=== PATIENT | female | born 1985 | race African-American/Black ===

== ENCOUNTER 2018-03-26 12:16 | Emergency (ER) | payer OTHER ==
[~2018-03-26] VITALS: Ht 160 cm; Wt 60.0 kg
[~2018-03-26 12:16] MED LIST: KEPRA; insulin
[2018-03-26] MEDS ORDERED: SODIUM CHLORIDE 0.9% 1,000 ML IV ONE (12:34)
[2018-03-26 12:59] LABS: BG BASE EXCESS -0.7 mmol/L (-2.0-2.0); BG CARBOXYHEMOGLOBIN 2.1 % (0.5-1.5); BG DEOXYHEMOGLOBIN 7.3 % (0.0-5.0); BG FRACTION INSPIRED OXYGEN 21; BG HCO3 ACT 23.8 mmol/L (22.0-26.0); BG OXYGEN SATURATION 92.5 % (92.0-98.5); BG OXYHEMOGLOBIN 90.6 % (94.0-97.0); BG PCO2 38.7 mmHg (35.0-45.0); BG PH 7.406 (7.350-7.450); BG PO2 65.7 mmHg (75.0-100.0); BG SAMPLE SITE RIGHT BRACHIAL; BG TOTAL HEMOGLOBIN 11.7 g/dL (12.0-18.0); BG VENT MODE ROOM AIR
[2018-03-26 13:00] LABS: HEMATOCRIT. 33.6 % (36.0-48.0); MEAN CORPUSCULAR HEMOGLOBIN 30.6 pg (28.0-32.0); MEAN CORPUSCULAR VOLUME 93.1 fL (81.0-99.0); MEAN PLATELET VOLUME 9.5 fl (7.4-10.4); PLATELET 225 x1000/uL (130-400); RED BLOOD CELL COUNT 3.61 mill/uL (4.2-5.4); RED CELL DISTRIBUTION WIDTH 14.7 % (11.6-14.6)
[2018-03-26 13:07] LABS: CHLORIDE 107 mEq/L (98-107)
[2018-03-26 13:09] LABS: PARTIAL THROMBOPLASTIN TIME 25.2 sec (23.4-31.0); PROTHROMBIN TIME 10.7 sec (9.4-11.6)
[2018-03-26 13:11] LABS: AMMONIA < 10 uMol/L (<32); HCG SCREEN NEGATIVE
[2018-03-26 13:14] LABS: ETHANOL BLOOD < 10 mg/dL
[2018-03-26 13:16] LABS: CREATINE KINASE 105 IU/L (26-192)
[2018-03-26 13:17] LABS: CARBAMAZEPINE < 0.5 ug/mL (4-12); PHENOBARBITAL < 2.1 ug/mL (15.0-40.0)
[2018-03-26 13:19] LABS: VALPROIC ACID < 3.0 ug/mL (50-100)
[2018-03-26 13:28] LABS: PLATELET ESTIMATE NORMAL
[2018-03-26 13:29] LABS: CLARITY URINE TURBID (CLEAR); COLOR URINE YELLOW (YELLOW); KETONES URINE NEGATIVE (NEGATIVE); LEUKOCYTE ESTERASE URINE NEGATIVE (NEGATIVE); NITRITE URINE NEGATIVE (NEGATIVE); OCCULT BLOOD URINE NEGATIVE (NEGATIVE); PROTEIN URINE TRACE (NEGATIVE); SPECIFIC GRAVITY URINE 1.024 (1.005-1.030); UROBILINOGEN URINE 0.2 E.U./dL (0.2-1.0)
[2018-03-26 13:41] LABS: *AMPHETAMINES SCREEN URINE NEGATIVE (NEGATIVE); *BARBITURATES SCREEN URINE NEGATIVE (NEGATIVE); *BENZODIAZEPINES SCREEN URINE NEGATIVE (NEGATIVE); *COCAINE SCREEN URINE NEGATIVE (NEGATIVE)
[2018-03-26 13:42] LABS: METHADONE URINE SCREEN NEGATIVE (NEGATIVE); OPIATES URINE SCREEN NEGATIVE (NEGATIVE); PHENCYCLIDINE URINE SCREEN NEGATIVE (NEGATIVE)
[2018-03-26 13:44] LABS: CANNABINOID URINE SCREEN PRESUMTIVE POSITIVE (NEGATIVE)
[2018-03-26] MEDS ORDERED: DEXTROSE 50% WATER 50ML SYRINGE IV ONE ×2 (13:44→13:45)
[2018-03-26 14:15] VITALS: BP 117/73
[2018-03-26] MEDS ORDERED: ACETAMINOPHEN 325MG TABLET PO ONE (14:15)
== END 2018-03-26 16:39 | disposition left against medical advice (07) ==
LOC: ER 12:29 → EDBEDREQTM 14:21 → EDBEDREQ 14:21 → ENRESERV 14:24 → CANRESERV 14:24 → ER 16:39 → CANBEDREQ 16:57
DX: E11.65 Type 2 diabetes mellitus with hyperglycemia (principal); G93.40 Encephalopathy, unspecified; E86.0 Dehydration; R56.9 Unspecified convulsions; Z79.4 Long term (current) use of insulin
CPT/HCPCS: 36415; 36600; 70450; 80053; 80156; 80165; 80184; 80185; 80305; 81003; 82140; 82375; 82550; 82805; 82962; 83690; 83880; 84484; 84703; 85025; 85610; 85730; 96361; 96374; 99291; G0482; J7030

== ENCOUNTER 2018-11-30 12:07 | Emergency (ER) | payer OTHER ==
[~2018-11-30] VITALS: Ht 162.6 cm; Wt 65.0 kg
[2018-11-30] MEDS ORDERED: SODIUM CHLORIDE 0.9% 1,000 ML IV ONE ×2 (12:45→12:47)
[2018-11-30] MEDS ORDERED: INSULIN REGULAR (HUMULIN R) UD 100 UNITS/ML SYR SUBCUT ONE (13:00)
[2018-11-30] MEDS ORDERED: LEVETIRACETAM 500MG PREMIX 100 ML IV ONE (13:00)
[2018-11-30 13:18] LABS: HEMATOCRIT. 37.5 % (36.0-48.0); HEMOGLOBIN. 11.9 g/dL (12.0-16.0); MEAN CORPUSCULAR HEMOGLOBIN 31.1 pg (28.0-32.0); MEAN CORPUSCULAR VOLUME 98.6 fL (81.0-99.0); MEAN PLATELET VOLUME 10.1 fl (7.4-10.4); PLATELET 313 x1000/uL (130-400); RED BLOOD CELL COUNT 3.81 mill/uL (4.2-5.4); RED CELL DISTRIBUTION WIDTH 14.5 % (11.6-14.6)
[2018-11-30 13:23] LABS: CHLORIDE 98 mEq/L (98-107)
[2018-11-30 13:24] LABS: INR 1.1; PROTHROMBIN TIME 10.7 sec (9.1-11.1)
[2018-11-30] MEDS ORDERED: INSULIN REGULAR (HUMULIN R) 300UNITS/3ML SUBCUT NR (13:28)
[2018-11-30 13:32] LABS: HCG SCREEN NEGATIVE
[2018-11-30 13:39] LABS: BETA HYDROXYBUTYRATE 6.6 mMol/L (0.0-0.3)
[2018-11-30 13:40] LABS: CLARITY URINE CLEAR (CLEAR); COLOR URINE YELLOW (YELLOW); KETONES URINE 4+ (NEGATIVE); LEUKOCYTE ESTERASE URINE NEGATIVE (NEGATIVE); NITRITE URINE NEGATIVE (NEGATIVE); OCCULT BLOOD URINE NEGATIVE (NEGATIVE); PROTEIN URINE NEGATIVE (NEGATIVE); SPECIFIC GRAVITY URINE 1.019 (1.005-1.030); UROBILINOGEN URINE 0.2 E.U./dL (0.2-1.0)
[2018-11-30 14:00] LABS: PLATELET ESTIMATE NORMAL
[2018-11-30] MEDS ORDERED: INSULIN REGULAR (DRIP) 100 UNITS in SODIUM CHLORIDE 0.9% 100 ML IV ONE (15:27)
[2018-11-30] MEDS ORDERED: SODIUM CHLORIDE 0.9% 1,000 ML IV STA (15:27)
[2018-11-30] MEDS ORDERED: LEVOFLOXACIN 750MG PREMIX 150 ML IV ONE (15:30)
[2018-11-30] MEDS ORDERED: INSULIN REGULAR (DRIP) 100 UNITS in SODIUM CHLORIDE 0.9% 99 ML IV PRN (15:45)
[2018-11-30] MEDS ORDERED: ALBUTEROL (0.083%) 2.5MG/3ML NEB HHN STA (15:47)
[2018-11-30] MEDS ORDERED: SODIUM BICARBONATE 8.4% 1 MEQ/ML 50ML SYR IV ONE (16:00)
[2018-11-30] MEDS ORDERED: SODIUM CHLORIDE 0.9% 1,000 ML IV SCH (16:06)
[2018-11-30] MEDS ORDERED: CLONIDINE 0.1MG TABLET PO PRN (16:15)
[2018-11-30] MEDS ORDERED: ONDANSETRON HCL 4MG/2ML INJ IV PRN (16:15)
[2018-11-30] MEDS ORDERED: KETOROLAC 15MG/ML VIAL IV PRN (16:15)
[2018-11-30] MEDS ORDERED: ACETAMINOPHEN 325MG TABLET PO PRN (16:15)
[2018-11-30] MEDS ORDERED: ZOLPIDEM TARTRATE 5MG TABLET PO PRN (16:15)
[2018-11-30] MEDS ORDERED: MAGNESIUM/ALUMINUM HYDROXIDE/SIMETHICONE 30ML UDC PO PRN (16:15)
[2018-11-30] MEDS ORDERED: GUAIFENESIN 200MG/10ML SUGAR FREE UDC PO PRN (16:15)
[2018-11-30] MEDS ORDERED: DOCUSATE SODIUM 100MG CAPSULE PO PRN (16:15)
[2018-11-30] MEDS ORDERED: LORAZEPAM 2MG/ML CPJ IV PRN (16:15)
[2018-11-30] MEDS ORDERED: IPRATROPIUM/ALBUTEROL 0.5-3(2.5)MG/3ML NEB INH PRN (16:15)
[2018-11-30] MEDS ORDERED: INSULIN REGULAR (DRIP) 100 UNITS in SODIUM CHLORIDE 0.9% 100 ML IV SCH (16:23)
[2018-11-30] MEDS: BLOOD SUGAR DIAGNOSTIC STRIP TEST SCH ×2 (16:30→18:14)
[2018-11-30] MEDS ORDERED: DEXTROSE 50% WATER 50ML SYRINGE IV PRN ×2 (16:30)
[2018-11-30 17:12] LABS: BG BASE EXCESS -15.7 mmol/L (-2.0-2.0); BG CARBOXYHEMOGLOBIN 0.4 % (0.5-1.5); BG DEOXYHEMOGLOBIN 2.7 % (0.0-5.0); BG HCO3 ACT 9.8 mmol/L (22.0-26.0); BG METHEMOGLOBIN 0.5 % (0.0-1.5); BG OXYGEN SATURATION 97.3 % (92.0-98.5); BG OXYHEMOGLOBIN 96.4 % (94.0-97.0); BG PCO2 23.1 mmHg (35.0-45.0); BG PH 7.244 (7.350-7.450); BG PO2 104.5 mmHg (75.0-100.0); BG SAMPLE SITE RIGHT BRACHIAL; BG TOTAL HEMOGLOBIN 12.2 g/dL (12.0-18.0); BG VENT MODE ROOM AIR
[2018-11-30 17:14] LABS: CHLORIDE 103 mEq/L (98-107)
[2018-11-30 17:19] LABS: PHOSPHORUS 3.7 mg/dL (2.5-4.9)
[2018-11-30 19:05] VITALS: BP 123/67
[2018-11-30 19:27] LABS: CHLORIDE 110 mEq/L (98-107)
[2018-11-30 19:33] LABS: PHOSPHORUS 2.6 mg/dL (2.5-4.9)
[2018-11-30] MEDS ORDERED: LEVETIRACETAM 500MG TABLET PO SCH (21:00)
[2018-12-01] MEDS ORDERED: PANTOPRAZOLE SODIUM 40 MG/VIAL IV SCH (09:00)
[2018-12-01 14:02] LABS: *AMPHETAMINES SCREEN URINE NEGATIVE (NEGATIVE)
[2018-12-01 14:03] LABS: *BARBITURATES SCREEN URINE NEGATIVE (NEGATIVE); *BENZODIAZEPINES SCREEN URINE NEGATIVE (NEGATIVE); *COCAINE SCREEN URINE NEGATIVE (NEGATIVE); METHADONE URINE SCREEN NEGATIVE (NEGATIVE); OPIATES URINE SCREEN NEGATIVE (NEGATIVE)
[2018-12-01 14:04] LABS: PHENCYCLIDINE URINE SCREEN NEGATIVE (NEGATIVE)
[2018-12-01 14:27] LABS: CANNABINOID URINE SCREEN PRESUMTIVE POSITIVE (NEGATIVE)
== END 2018-11-30 20:05 | disposition short-term general hospital (02) ==
LOC: ER 12:33 → EDBEDREQ 15:52 → CANBEDREQ 18:19 → ER 20:05
DX: E11.10 Type 2 diabetes mellitus with ketoacidosis without coma (principal); G40.909 Epilepsy, unspecified, not intractable, without status epilepticus; G93.49 Other encephalopathy; D72.829 Elevated white blood cell count, unspecified; E86.0 Dehydration; E87.1 Hypo-osmolality and hyponatremia; N28.9 Disorder of kidney and ureter, unspecified; Z91.14 Patient's other noncompliance with medication regimen; Z79.4 Long term (current) use of insulin
CPT/HCPCS: 36415; 36600; 71045; 80048; 80053; 80305; 81003; 81025; 82010; 82375; 82805; 82962; 83036; 83605; 83735; 84100; 84703; 85025; 85610; 87040; 87086; 93005; 96365; 96366; 96367; 96368; 96372; 96375; 99285; J1815; J1953; J1956; J2060; J3490; J7030

== ENCOUNTER 2019-09-25 11:43 | Inpatient (IN) | payer OTHER ==
[~2019-09-25] VITALS: Ht 167.6 cm; Wt 64.0 kg
[2019-09-25] MEDS ORDERED: ONDANSETRON HCL 4MG/2ML INJ IV STA (12:13)
[2019-09-25] MEDS ORDERED: SODIUM CHLORIDE 0.9% 1,000 ML IV ONE (12:13)
[2019-09-25] MEDS ORDERED: LACTATED RINGERS 1,000 ML IV STA (12:13)
[2019-09-25 12:48] LABS: PROTHROMBIN TIME 10.5 sec (9.6-11.0)
[2019-09-25 13:15] LABS: HEMATOCRIT. 36.2 % (36.0-48.0); HEMOGLOBIN. 10.9 g/dL (12.0-16.0); MEAN CORPUSCULAR HEMOGLOBIN 28.6 pg (28.0-32.0); MEAN CORPUSCULAR VOLUME 94.7 fL (81.0-99.0); MEAN PLATELET VOLUME 9.8 fl (7.4-10.4); PLATELET 268 x1000/uL (130-400); RED BLOOD CELL COUNT 3.82 mill/uL (4.2-5.4); RED CELL DISTRIBUTION WIDTH 16.5 % (11.6-14.6)
[2019-09-25 13:17] LABS: CHLORIDE 97 mEq/L (98-107)
[2019-09-25 13:26] LABS: HCG SCREEN NEGATIVE
[2019-09-25 13:31] LABS: BETA HYDROXYBUTYRATE 8.9 mMol/L (0.0-0.3)
[2019-09-25 13:56] LABS: PLATELET ESTIMATE NORMAL
[2019-09-25] MEDS ORDERED: INSULIN REGULAR (DRIP) 100 UNITS in SODIUM CHLORIDE 0.9% 99 ML IV ONE (14:26)
[2019-09-25 15:17] LABS: CLARITY URINE CLEAR (CLEAR); COLOR URINE YELLOW (YELLOW); KETONES URINE 4+ (NEGATIVE); LEUKOCYTE ESTERASE URINE NEGATIVE (NEGATIVE); NITRITE URINE NEGATIVE (NEGATIVE); OCCULT BLOOD URINE 3+ (NEGATIVE); PROTEIN URINE TRACE (NEGATIVE); SPECIFIC GRAVITY URINE 1.018 (1.005-1.030); UROBILINOGEN URINE 0.2 E.U./dL (0.2-1.0)
[2019-09-25] MEDS: SODIUM CHLORIDE 0.9% 1,000 ML IV SCH (15:48)
[2019-09-25] MEDS: PANTOPRAZOLE SODIUM 40 MG/VIAL IV SCH (15:59)
[2019-09-25 17:15] LABS: CHLORIDE 101 mEq/L (98-107)
[2019-09-25 17:20] LABS: PHOSPHORUS 4.6 mg/dL (2.5-4.9)
[2019-09-25] MEDS ORDERED: MORPHINE SULFATE 2 MG/ML CPJ (NOT FOR IM USE) IV NR (17:30)
[2019-09-25] MEDS: KETOROLAC 30MG/ML VIAL IV PRN (20:47)
[2019-09-25 21:12] LABS: CHLORIDE 111 mEq/L (98-107)
[2019-09-25] MEDS: ACETAMINOPHEN 325MG TABLET PO PRN (21:18)
[2019-09-26] VITALS (30 sets, daily range): BP systolic 102–129; BP diastolic 66–87
[2019-09-26 01:24] LABS: CHLORIDE 116 mEq/L (98-107)
[2019-09-26] MEDS: SODIUM CHLORIDE 0.9% 1,000 ML IV SCH (01:36)
[2019-09-26 04:09] LABS: HEMATOCRIT. 29.9 % (36.0-48.0); HEMOGLOBIN. 9.3 g/dL (12.0-16.0); MEAN CORPUSCULAR HEMOGLOBIN 28.8 pg (28.0-32.0); MEAN CORPUSCULAR VOLUME 92.1 fL (81.0-99.0); MEAN PLATELET VOLUME 9.4 fl (7.4-10.4); PLATELET 248 x1000/uL (130-400); RED BLOOD CELL COUNT 3.24 mill/uL (4.2-5.4); RED CELL DISTRIBUTION WIDTH 15.6 % (11.6-14.6)
[2019-09-26 04:15] LABS: CHLORIDE 113 mEq/L (98-107)
[2019-09-26 04:21] LABS: PHOSPHORUS 2.6 mg/dL (2.5-4.9)
[2019-09-26 05:43] LABS: BG BASE EXCESS -18.6 mmol/L (-2.0-2.0); BG CARBOXYHEMOGLOBIN 0.3 % (0.5-1.5); BG DEOXYHEMOGLOBIN 1.8 % (0.0-5.0); BG FRACTION INSPIRED OXYGEN 21; BG HCO3 ACT 8.3 mmol/L (22.0-26.0); BG METHEMOGLOBIN 0.2 % (0.0-1.5); BG OXYGEN SATURATION 98.2 % (92.0-98.5); BG OXYHEMOGLOBIN 97.7 % (94.0-97.0); BG PCO2 23.4 mmHg (35.0-45.0); BG PH 7.166 (7.350-7.450); BG PO2 131.1 mmHg (75.0-100.0); BG SAMPLE SITE RIGHT BRACHIAL; BG TOTAL HEMOGLOBIN 10.5 g/dL (12.0-18.0); BG VENT MODE ROOM AIR
[2019-09-26 07:00] LABS: PLATELET ESTIMATE NORMAL
[2019-09-26] MEDS: PANTOPRAZOLE SODIUM 40 MG/VIAL IV SCH (09:00)
[2019-09-26 11:15] LABS: CHLORIDE 113 mEq/L (98-107)
[2019-09-26] MEDS ORDERED: HYDROCODONE/ACETAMINOPHEN 5/325MG TABLET PO PRN (11:15)
[2019-09-26] MEDS ORDERED: DEXTROSE 50% WATER 50ML SYRINGE IV ONE (12:54)
[2019-09-26] MEDS ORDERED: INSULIN REGULAR (DRIP) 100 UNITS in SODIUM CHLORIDE 0.9% 99 ML IV ONE ×2 (15:15→15:45)
[2019-09-26 15:31] LABS: HEMATOCRIT. 35.6 % (36.0-48.0); HEMOGLOBIN. 11.2 g/dL (12.0-16.0); MEAN CORPUSCULAR HEMOGLOBIN 28.9 pg (28.0-32.0); MEAN CORPUSCULAR VOLUME 91.7 fL (81.0-99.0); MEAN PLATELET VOLUME 9.7 fl (7.4-10.4); PLATELET 162 x1000/uL (130-400); RED BLOOD CELL COUNT 3.88 mill/uL (4.2-5.4); RED CELL DISTRIBUTION WIDTH 16.1 % (11.6-14.6)
[2019-09-26 15:34] LABS: CHLORIDE 114 mEq/L (98-107)
[2019-09-26 15:41] LABS: BG BASE EXCESS -15.9 mmol/L (-2.0-2.0); BG CARBOXYHEMOGLOBIN 0.3 % (0.5-1.5); BG DEOXYHEMOGLOBIN 2.3 % (0.0-5.0); BG FRACTION INSPIRED OXYGEN 21; BG HCO3 ACT 9.7 mmol/L (22.0-26.0); BG METHEMOGLOBIN 0.3 % (0.0-1.5); BG OXYGEN SATURATION 97.7 % (92.0-98.5); BG OXYHEMOGLOBIN 97.1 % (94.0-97.0); BG PCO2 23.1 mmHg (35.0-45.0); BG PH 7.241 (7.350-7.450); BG PO2 107.5 mmHg (75.0-100.0); BG SAMPLE SITE RIGHT BRACHIAL; BG TOTAL HEMOGLOBIN 10.8 g/dL (12.0-18.0); BG VENT MODE ROOM AIR
[2019-09-26 16:13] LABS: CHLORIDE 113 mEq/L (98-107)
[2019-09-26] MEDS ORDERED: KEPP250 MT (16:50)
[2019-09-26] MEDS ORDERED: INSU100I28 SQ (16:50)
[2019-09-26] MEDS ORDERED: INSULIN REGULAR (DRIP) 100 UNITS in SODIUM CHLORIDE 0.9% 99 ML IV SCH (16:54)
[2019-09-26] MEDS ORDERED: DEXTROSE 50% WATER 50ML SYRINGE IV PRN ×2 (17:00)
[2019-09-26] MEDS: BLOOD SUGAR DIAGNOSTIC STRIP TEST SCH ×8 (17:47→23:46)
[2019-09-26] MEDS: PIPERACILLIN/TAZOBACTAM 3.375 G in DEXT 5% WATER 100 ML IV SCH ×2 (17:51→23:46)
[2019-09-26] MEDS: DEXT 5%/0.45% NACL 1000ML 1,000 ML IV SCH (17:56)
[2019-09-26] MEDS ORDERED: MAGNESIUM 2 G PREMIX 50 ML IV SCH (18:00)
[2019-09-26] MEDS ORDERED: VANCOMYCIN 1250MG in DEXTROSE 5% WATER 250ML IV SCH (20:00)
[2019-09-26] MEDS: LEVETIRACETAM 500MG/5ML CUP PO SCH (20:42)
[2019-09-26 20:50] LABS: ATYPICAL LYMPHOCYTES 1; PLATELET ESTIMATE NORMAL
[2019-09-26 22:08] LABS: CHLORIDE 110 mEq/L (98-107)
[2019-09-26 22:18] LABS: PHOSPHORUS 0.4 mg/dL (2.5-4.9)
[2019-09-26] MEDS ORDERED: POTASSIUM PHOS,M-BASIC-D-BASIC 20 MMOL in DEXT 5% WATER 243.3333 ML IV SCH (23:30)
[2019-09-26] MEDS ORDERED: KCL 20MEQ/100ML PREMIX 100 ML IV SCH (23:30)
[2019-09-27] VITALS (26 sets, daily range): BP systolic 97–127; BP diastolic 58–84
[2019-09-27] MEDS: KETOROLAC 30MG/ML VIAL IV PRN ×2 (00:21→23:14)
[2019-09-27] MEDS: BLOOD SUGAR DIAGNOSTIC STRIP TEST SCH ×15 (01:08→23:00)
[2019-09-27] MEDS ORDERED: DEXTROSE 50% WATER 50ML SYRINGE IV PRN ×3 (01:15→11:30)
[2019-09-27] MEDS ORDERED: KCL 20MEQ/100ML PREMIX 100 ML IV SCH (01:30)
[2019-09-27] MEDS ORDERED: INSULIN GLARGINE UD 100 UNITS/ML SYR SUBCUT SCH ×2 (02:00→22:00)
[2019-09-27] MEDS: DEXT 5%/0.45% NACL 1000ML 1,000 ML IV SCH ×4 (02:06→17:23)
[2019-09-27] MEDS: VANCOMYCIN 1 G PREMIX 200 ML IV SCH ×3 (04:37→20:58)
[2019-09-27 04:46] LABS: BASOPHILS % 0.2 % (0.0-2.0); HEMATOCRIT. 29.6 % (36.0-48.0); HEMOGLOBIN. 9.7 g/dL (12.0-16.0); MEAN CORPUSCULAR HEMOGLOBIN 29.2 pg (28.0-32.0); MEAN CORPUSCULAR VOLUME 89.4 fL (81.0-99.0); MEAN PLATELET VOLUME 9.9 fl (7.4-10.4); MONOCYTES % 5.4 % (2.0-8.0); NEUTROPHILS % 83.4 % (40.0-76.0); PLATELET 189 x1000/uL (130-400); RED BLOOD CELL COUNT 3.32 mill/uL (4.2-5.4); RED CELL DISTRIBUTION WIDTH 15.8 % (11.6-14.6)
[2019-09-27 04:52] LABS: CHLORIDE 107 mEq/L (98-107)
[2019-09-27 04:59] LABS: PHOSPHORUS 1.9 mg/dL (2.5-4.9)
[2019-09-27] MEDS: PIPERACILLIN/TAZOBACTAM 3.375 G in DEXT 5% WATER 100 ML IV SCH ×4 (06:09→23:15)
[2019-09-27] MEDS ORDERED: INSULIN LISPRO 100 UNITS/ML SUBCUT SCH ×2 (08:00→08:20)
[2019-09-27] MEDS: PANTOPRAZOLE SODIUM 40 MG/VIAL IV SCH (08:26)
[2019-09-27] MEDS: LEVETIRACETAM 500MG/5ML CUP PO SCH ×2 (08:26→20:59)
[2019-09-27] MEDS ORDERED: POTASSIUM PHOS,M-BASIC-D-BASIC 20 MMOL in DEXT 5% WATER 243.3333 ML IV SCH (10:00)
[2019-09-27] MEDS ORDERED: MAGNESIUM 2 G PREMIX 50 ML IV SCH (10:00)
[2019-09-27] MEDS ORDERED: INSULIN REGULAR (DRIP) 100 UNITS in SODIUM CHLORIDE 0.9% 100 ML IV SCH ×2 (11:19→13:00)
[2019-09-27] MEDS ORDERED: BLOOD SUGAR DIAGNOSTIC STRIP TEST SCH (11:30)
[2019-09-27 20:27] LABS: CHLORIDE 110 mEq/L (98-107)
[2019-09-27 20:32] LABS: PHOSPHORUS 1.2 mg/dL (2.5-4.9)
[2019-09-27] MEDS: OSELTAMIVIR 75MG CAPSULE PO SCH (20:59)
[2019-09-27 23:44] LABS: CHLORIDE 108 mEq/L (98-107)
[2019-09-27] MEDS: ACETAMINOPHEN 325MG TABLET PO PRN (23:53)
[2019-09-28] VITALS (17 sets, daily range): BP systolic 99–132; BP diastolic 58–97
[2019-09-28] MEDS: KETOROLAC 30MG/ML VIAL IV PRN ×3 (00:31→00:35)
[2019-09-28] MEDS: BLOOD SUGAR DIAGNOSTIC STRIP TEST SCH ×5 (01:00→08:42)
[2019-09-28] MEDS ORDERED: POTASSIUM PHOS,M-BASIC-D-BASIC 20 MMOL in DEXT 5% WATER 243.3333 ML IV SCH (01:00)
[2019-09-28] MEDS ORDERED: DEXTROSE 50% WATER 50ML SYRINGE IV PRN ×2 (02:00→08:30)
[2019-09-28] MEDS: ACETAMINOPHEN 325MG TABLET PO PRN ×4 (02:13→02:21)
[2019-09-28] MEDS: DEXT 5%/0.45% NACL 1000ML 1,000 ML IV SCH (03:15)
[2019-09-28] MEDS: INSULIN LISPRO 100 UNITS/ML SUBCUT SCH ×3 (04:00→12:40)
[2019-09-28] MEDS: VANCOMYCIN 1 G PREMIX 200 ML IV SCH (04:56)
[2019-09-28 06:03] LABS: BASOPHILS % 0.3 % (0.0-2.0); EOSINOPHILS % 0.4 % (0.0-5.0); HEMATOCRIT. 29.1 % (36.0-48.0); HEMOGLOBIN. 9.6 g/dL (12.0-16.0); LYMPHOCYTES % 24.4 % (20.0-50.0); MEAN CORPUSCULAR VOLUME 88.2 fL (81.0-99.0); MONOCYTES % 8.9 % (2.0-8.0); PLATELET 189 x1000/uL (130-400); RED CELL DISTRIBUTION WIDTH 15.3 % (11.6-14.6)
[2019-09-28] MEDS: PIPERACILLIN/TAZOBACTAM 3.375 G in DEXT 5% WATER 100 ML IV SCH ×2 (06:24→12:25)
[2019-09-28] MEDS: ONDANSETRON HCL 4MG/2ML INJ IV PRN ×2 (07:14→12:43)
[2019-09-28] MEDS ORDERED: POTASSIUM CHLORIDE 20MEQ TABLET SR PO SCH ×2 (08:30→15:30)
[2019-09-28] MEDS: PANTOPRAZOLE SODIUM 40 MG/VIAL IV SCH (09:05)
[2019-09-28] MEDS: LEVETIRACETAM 500MG/5ML CUP PO SCH (09:05)
[2019-09-28] MEDS: OSELTAMIVIR 75MG CAPSULE PO SCH (09:05)
[2019-09-28] MEDS ORDERED: POTASSIUM CHLORIDE INJ 40 MEQ in DEXT 5% WATER 250 ML IV SCH (10:00)
[2019-09-28] MEDS ORDERED: INSULIN GLARGINE UD 100 UNITS/ML SYR SUBCUT SCH (10:00)
[2019-09-28] MEDS ORDERED: BLOOD SUGAR DIAGNOSTIC STRIP TEST SCH (12:50)
[2019-09-28] MEDS ORDERED: INSULIN LISPRO 100 UNITS/ML SUBCUT SCH (13:20)
[2019-09-28 15:22] LABS: CHLORIDE 108 mEq/L (98-107)
[2019-09-28] MEDS ORDERED: VANCOMYCIN 1 G PREMIX 200 ML IV SCH (20:00)
[2019-09-29] MEDS ORDERED: INSULIN GLARGINE UD 100 UNITS/ML SYR SUBCUT SCH (10:00)
== END 2019-09-28 16:45 | disposition home or self-care (01) | DRG 871 ==
LOC: ER 11:43 → EDBEDREQ 15:16 → EDBEDREQTM 15:16 → ENRESERV 09-26 14:07 → CANRESERV 09-26 14:07 → EDBEDREQSVC 09-26 14:58 → EDBEDREQ 09-26 14:58 → EDBEDREQSVC 09-26 15:49 → ENRESERV 09-26 15:56 → CVICU 09-26 16:43 → CMPBEDREQ 09-27 02:47
PROVIDERS: ADMIT Internal Medicine Nephrology; ATTEND Internal Medicine Nephrology
DX: A41.9 Sepsis, unspecified organism (principal); E11.10 Type 2 diabetes mellitus with ketoacidosis without coma; E87.1 Hypo-osmolality and hyponatremia; E87.5 Hyperkalemia; E87.8 Other disorders of electrolyte and fluid balance, not elsewhere classified; D64.9 Anemia, unspecified; G40.909 Epilepsy, unspecified, not intractable, without status epilepticus; F12.90 Cannabis use, unspecified, uncomplicated; J11.1 Influenza due to unidentified influenza virus with other respiratory manifestations; Z79.4 Long term (current) use of insulin; Z79.899 Other long term (current) drug therapy
CPT/HCPCS: 36415; 36600; 71045; 80048; 80053; 80202; 81003; 82010; 82375; 82805; 82962; 83605; 83735; 84100; 84145; 84703; 85025; 87804; 99291; C9113; J1815; J1885; J2270; J2405; J2543; J3370; J3475; J3480; J3490; J7030; J7040; J7050; J7060; J7120

== ENCOUNTER 2020-06-14 16:29 | Inpatient (IN) | payer OTHER ==
[~2020-06-14] VITALS: Ht 162.6 cm; Wt 60.8 kg
[2020-06-14] VITALS (18 sets, daily range): BP systolic 89–143; BP diastolic 48–78
[~2020-06-14 16:29] MED LIST changes: +INSU100I28 SQ; +KEPP250 MT; -KEPRA; -insulin
[2020-06-14] MEDS ORDERED: ETOMIDATE 2MG/ML 10ML VIAL IV ONE ×2 (17:00→17:15)
[2020-06-14] MEDS ORDERED: VECURONIUM BROMIDE 10 MG/VIAL IV ONE (17:00)
[2020-06-14] MEDS ORDERED: SODIUM BICARBONATE 8.4% 1 MEQ/ML 50ML SYR IV ONE ×4 (17:00→20:00)
[2020-06-14] MEDS ORDERED: SODIUM CHLORIDE 0.9% 10ML VIAL ONE (17:00)
[2020-06-14] MEDS ORDERED: SODIUM CHLORIDE 0.9% 1000ML BAG (SEPSIS BOLUS) IV ONE (17:00)
[2020-06-14] MEDS ORDERED: SODIUM BICARBONATE 8.4% MEQ/ML 50ML VIAL IV ONE (17:04)
[2020-06-14] MEDS ORDERED: PROPOFOL 10MG/ML 100ML 100 ML IV SCH (17:15)
[2020-06-14] MEDS ORDERED: LORAZEPAM 2MG/ML CPJ IV ONE (17:15)
[2020-06-14 17:20] LABS: CHLORIDE 92 mEq/L (98-107); HEMATOCRIT. 33.4 % (36.0-48.0); MEAN CORPUSCULAR HEMOGLOBIN 29.8 pg (28.0-32.0); MEAN CORPUSCULAR VOLUME 111.2 fL (81.0-99.0); MEAN PLATELET VOLUME 10.9 fl (7.4-10.4); PLATELET 185 x1000/uL (130-400); RED CELL DISTRIBUTION WIDTH 15.2 % (11.6-14.6)
[2020-06-14 17:22] LABS: PARTIAL THROMBOPLASTIN TIME 36.2 sec (23.4-31.0); PROTHROMBIN TIME 10.9 sec (9.6-11.0)
[2020-06-14 17:25] LABS: ETHANOL BLOOD < 10 mg/dL
[2020-06-14] MEDS ORDERED: CALCIUM CHLORIDE 1,000 MG in DEXT 5% WATER 90 ML IV ONE (17:30)
[2020-06-14 17:44] LABS: HCG SCREEN NEGATIVE
[2020-06-14] MEDS ORDERED: INSULIN REGULAR (DRIP) 100 UNITS in SODIUM CHLORIDE 0.9% 100 ML IV ONE (17:46)
[2020-06-14] MEDS ORDERED: SODIUM CHLORIDE 0.9% 1,000 ML IV STA (17:46)
[2020-06-14] MEDS ORDERED: CALCIUM CHLORIDE 1GM/10ML SYR IV ONE (17:53)
[2020-06-14 17:54] LABS: PLATELET ESTIMATE NORMAL
[2020-06-14] MEDS ORDERED: VANCOMYCIN 1 G PREMIX 200 ML IV ONE (18:00)
[2020-06-14] MEDS ORDERED: INSULIN REGULAR (HUMULIN R) 300UNITS/3ML IV ONE (18:00)
[2020-06-14] MEDS ORDERED: SODIUM POLYSTYRENE SULFONATE 15 G/60 ML BOT NG ONE (18:00)
[2020-06-14] MEDS ORDERED: INSULIN REGULAR (DRIP) 100 UNITS in SODIUM CHLORIDE 0.9% 99 ML IV NR (18:00)
[2020-06-14] MEDS ORDERED: ALBUTEROL (0.083%) 2.5MG/3ML NEB HHN ONE (18:00)
[2020-06-14] MEDS ORDERED: PIPERACILLIN/TAZ 3.375G PREMIX 50 ML IV ONE (18:00)
[2020-06-14 18:12] LABS: CARBAMAZEPINE < 0.5 ug/mL (4-12); PHENOBARBITAL < 2.1 ug/mL (15.0-40.0); VALPROIC ACID < 3.0 ug/mL (50-100)
[2020-06-14] MEDS ORDERED: LEVETIRACETAM 500MG PREMIX 100 ML IV ONE (18:15)
[2020-06-14] MEDS ORDERED: DEXAMETHASONE 10 MG/ML VIAL IV ONE ×2 (19:00→19:15)
[2020-06-14 19:03] LABS: BG BASE EXCESS -24.1 mmol/L (-2.0-2.0); BG CARBOXYHEMOGLOBIN 0.3 % (0.5-1.5); BG DEOXYHEMOGLOBIN 0.3 % (0.0-5.0); BG FRACTION INSPIRED OXYGEN 100; BG HCO3 ACT 7.2 mmol/L (22.0-26.0); BG METHEMOGLOBIN 0.3 % (0.0-1.5); BG OXYGEN SATURATION 99.7 % (92.0-98.5); BG OXYHEMOGLOBIN 99.1 % (94.0-97.0); BG PCO2 41.9 mmHg (35.0-45.0); BG PH 6.855 (7.350-7.450); BG PO2 361.8 mmHg (75.0-100.0); BG SAMPLE SITE RIGHT BRACHIAL; BG TOTAL HEMOGLOBIN 5.6 g/dL (12.0-18.0); BG VENT MODE VENT - AC
[2020-06-14 19:37] LABS: HEMOGLOBIN. 9.1 g/dL (12.0-16.0); MEAN CORPUSCULAR HEMOGLOBIN 30.1 pg (28.0-32.0); MEAN CORPUSCULAR VOLUME 105.9 fL (81.0-99.0); MEAN PLATELET VOLUME 10.5 fl (7.4-10.4); PLATELET 167 x1000/uL (130-400); RED BLOOD CELL COUNT 3.03 mill/uL (4.2-5.4); RED CELL DISTRIBUTION WIDTH 14.9 % (11.6-14.6)
[2020-06-14 19:55] LABS: PHOSPHORUS 10.1 mg/dL (2.5-4.9)
[2020-06-14] MEDS ORDERED: MAGNESIUM/ALUMINUM HYDROXIDE/SIMETHICONE 30ML UDC PO PRN (20:00)
[2020-06-14] MEDS ORDERED: GUAIFENESIN 200MG/10ML SUGAR FREE UDC PO PRN (20:00)
[2020-06-14] MEDS ORDERED: HYDROCODONE/ACETAMINOPHEN 10/325MG TABLET PO PRN (20:00)
[2020-06-14] MEDS ORDERED: LORAZEPAM 2MG/ML CPJ IV PRN (20:00)
[2020-06-14] MEDS ORDERED: PIPERACILLIN/TAZ 3.375G PREMIX 50 ML IV SCH (20:00)
[2020-06-14] MEDS ORDERED: DEXTROSE 50% WATER 50ML SYRINGE IV PRN ×2 (20:00)
[2020-06-14] MEDS ORDERED: DIPHENHYDRAMINE 50MG/ML VIAL IV PRN (20:00)
[2020-06-14] MEDS ORDERED: IPRATROPIUM/ALBUTEROL 0.5-3(2.5)MG/3ML NEB HHN PRN (20:00)
[2020-06-14] MEDS ORDERED: DOCUSATE SODIUM 100MG CAPSULE PO PRN (20:00)
[2020-06-14] MEDS ORDERED: NOREPINEPHRINE 8MG/250ML PMX 250 ML IV PRN (20:00)
[2020-06-14] MEDS ORDERED: MORPHINE SULFATE 2 MG/ML CPJ (NOT FOR IM USE) IV PRN (20:00)
[2020-06-14] MEDS ORDERED: CLONIDINE 0.1MG TABLET PO PRN (20:00)
[2020-06-14] MEDS ORDERED: ONDANSETRON HCL 4MG/2ML INJ IV PRN (20:00)
[2020-06-14] MEDS ORDERED: DEXT 5%/0.9% NACL 1,000 ML IV PRN (20:00)
[2020-06-14 20:02] LABS: PLATELET ESTIMATE NORMAL
[2020-06-14] MEDS ORDERED: SODIUM CHLORIDE 0.9% 1,000 ML IV SCH (20:15)
[2020-06-14 20:29] LABS: PHOSPHORUS 9.1 mg/dL (2.5-4.9)
[2020-06-14] MEDS ORDERED: SODIUM CHLORIDE 0.9% 1,000 ML IV ONE (21:00)
[2020-06-14] MEDS ORDERED: SODIUM CHLORIDE 0.9% 500 ML IV ONE (21:15)
[2020-06-14] MEDS ORDERED: NOREPINEPHRINE 8 MG in DEXTROSE 5% WATER 250 ML IV PRN (21:30)
[2020-06-14] MEDS: BLOOD SUGAR DIAGNOSTIC STRIP TEST SCH ×3 (21:39→23:18)
[2020-06-14 22:18] LABS: BG BASE EXCESS -21.4 mmol/L (-2.0-2.0); BG CARBOXYHEMOGLOBIN 0.3 % (0.5-1.5); BG DEOXYHEMOGLOBIN 0.3 % (0.0-5.0); BG FRACTION INSPIRED OXYGEN 100; BG METHEMOGLOBIN 0.4 % (0.0-1.5); BG OXYGEN SATURATION 99.7 % (92.0-98.5); BG PCO2 24.4 mmHg (35.0-45.0); BG PH 7.076 (7.350-7.450); BG PO2 483.9 mmHg (75.0-100.0); BG SAMPLE SITE LEFT RADIAL; BG VENT MODE VENT - AC
[2020-06-14 22:22] LABS: CREATINE KINASE 44082 IU/L (26-192)
[2020-06-14] MEDS: SODIUM CHLORIDE 0.9% INJ 3ML FLUSH IVF SCH (22:27)
[2020-06-14] MEDS ORDERED: SODIUM BICARBONATE 8.4% 1 MEQ/ML 50ML SYR IV NR (22:30)
[2020-06-14] MEDS ORDERED: CEFAZOLIN 1000MG PREMIX 50 ML IV SCH (22:30)
[2020-06-14] MEDS: NICARDIPINE 100 MG in SODIUM CHLORIDE 0.9% 60 ML IV PRN (23:06)
[2020-06-14 23:20] LABS: PHOSPHORUS 4.8 mg/dL (2.5-4.9)
[2020-06-14] MEDS ORDERED: INSULIN REGULAR (DRIP) 100 UNITS in SODIUM CHLORIDE 0.9% 99 ML IV PRN (23:30)
[2020-06-14] MEDS: INSULIN REGULAR (DRIP) 100 UNITS in SODIUM CHLORIDE 0.9% 100 ML IV SCH (23:49)
[2020-06-15] VITALS (97 sets, daily range): BP systolic 100–132; BP diastolic 46–91
[2020-06-15] MEDS: BLOOD SUGAR DIAGNOSTIC STRIP TEST SCH ×11 (00:21→18:25)
[2020-06-15 02:09] LABS: CLARITY URINE CLOUDY (CLEAR); COLOR URINE YELLOW (YELLOW); KETONES URINE 2+ (NEGATIVE); LEUKOCYTE ESTERASE URINE TRACE (NEGATIVE); NITRITE URINE NEGATIVE (NEGATIVE); OCCULT BLOOD URINE 3+ (NEGATIVE); PROTEIN URINE 2+ (NEGATIVE); SPECIFIC GRAVITY URINE 1.017 (1.005-1.030); UROBILINOGEN URINE 0.2 E.U./dL (0.2-1.0)
[2020-06-15 02:20] LABS: *AMPHETAMINES SCREEN URINE NEGATIVE (NEGATIVE); *BARBITURATES SCREEN URINE NEGATIVE (NEGATIVE); *BENZODIAZEPINES SCREEN URINE NEGATIVE (NEGATIVE); *COCAINE SCREEN URINE NEGATIVE (NEGATIVE)
[2020-06-15 02:21] LABS: METHADONE URINE SCREEN NEGATIVE (NEGATIVE); OPIATES URINE SCREEN NEGATIVE (NEGATIVE); PHENCYCLIDINE URINE SCREEN NEGATIVE (NEGATIVE)
[2020-06-15 02:26] LABS: CANNABINOID URINE SCREEN PRESUMTIVE POSITIVE (NEGATIVE)
[2020-06-15] MEDS ORDERED: PIPERACILLIN/TAZOBACTAM 2.25 G in DEXTROSE 5% WATER 50 ML IV SCH (02:30)
[2020-06-15] MEDS: IPRATROPIUM/ALBUTEROL 0.5-3(2.5)MG/3ML NEB HHN SCH ×4 (02:35→20:20)
[2020-06-15] MEDS: PIPERACILLIN/TAZOBACTAM 2.25 G in DEXTROSE 5% WATER 50 ML IV SCH ×3 (03:09→18:25)
[2020-06-15] MEDS ORDERED: SODIUM CHLORIDE 0.9% 1,000 ML IV SCH (03:45)
[2020-06-15] MEDS: INSULIN REGULAR (DRIP) 100 UNITS in SODIUM CHLORIDE 0.9% 100 ML IV SCH (04:06)
[2020-06-15] MEDS: SODIUM CHLORIDE 0.9% INJ 3ML FLUSH IVF SCH ×3 (05:17→21:28)
[2020-06-15 05:37] LABS: HEMATOCRIT. 28.2 % (36.0-48.0); HEMOGLOBIN. 9.3 g/dL (12.0-16.0); MEAN CORPUSCULAR HEMOGLOBIN 29.7 pg (28.0-32.0); MEAN PLATELET VOLUME 10.4 fl (7.4-10.4); PLATELET 171 x1000/uL (130-400); RED BLOOD CELL COUNT 3.13 mill/uL (4.2-5.4); RED CELL DISTRIBUTION WIDTH 13.5 % (11.6-14.6)
[2020-06-15 05:46] LABS: CHLORIDE 117 mEq/L (98-107)
[2020-06-15] MEDS ORDERED: ACETAMINOPHEN 650MG/20.3ML UDC NG PRN (06:15)
[2020-06-15] MEDS ORDERED: SODIUM CHLORIDE 0.9% 250 ML IV ONE (06:15)
[2020-06-15] MEDS ORDERED: BLOOD SUGAR DIAGNOSTIC STRIP TEST SCH (08:45)
[2020-06-15] MEDS ORDERED: CEFAZOLIN 1000MG PREMIX 50 ML IV SCH (09:00)
[2020-06-15 09:30] LABS: BG CARBOXYHEMOGLOBIN 0.3 % (0.5-1.5); BG DEOXYHEMOGLOBIN 1.3 % (0.0-5.0); BG FRACTION INSPIRED OXYGEN 40; BG HCO3 ACT 15.4 mmol/L (22.0-26.0); BG METHEMOGLOBIN 0.1 % (0.0-1.5); BG OXYGEN SATURATION 98.7 % (92.0-98.5); BG OXYHEMOGLOBIN 98.3 % (94.0-97.0); BG PCO2 22.1 mmHg (35.0-45.0); BG PH 7.461 (7.350-7.450); BG PO2 176.7 mmHg (75.0-100.0); BG SAMPLE SITE LEFT RADIAL; BG TOTAL HEMOGLOBIN 9.8 g/dL (12.0-18.0); BG VENT MODE VENT - AC
[2020-06-15] MEDS: LEVETIRACETAM 250 MG in SODIUM CHLORIDE 0.9% 100 ML IV SCH ×2 (09:37→20:17)
[2020-06-15] MEDS: SODIUM CHLORIDE 0.45% 1,000 ML IV SCH ×2 (09:37→22:50)
[2020-06-15] MEDS: PROPOFOL 10MG/ML 100ML 100 ML IV PRN ×3 (09:38→19:18)
[2020-06-15] MEDS ORDERED: POTASSIUM CHLORIDE INJ 40 MEQ in DEXT 5% WATER 250 ML IV SCH (10:00)
[2020-06-15 11:12] LABS: PLATELET ESTIMATE NORMAL
[2020-06-15] MEDS ORDERED: INSULIN LISPRO 100 UNITS/ML SUBCUT SCH (12:00)
[2020-06-15] MEDS ORDERED: METOPROLOL TARTRATE 25MG TABLET PO NR (12:45)
[2020-06-15] MEDS: INSULIN LISPRO 100 UNITS/ML SUBCUT SCH (18:25)
[2020-06-15 18:53] LABS: CREATINE KINASE MB FRACTION 55.1 ng/mL (0.5-3.6)
[2020-06-15] MEDS: METOPROLOL TARTRATE 25MG TABLET NG SCH (20:18)
[2020-06-16] VITALS (95 sets, daily range): BP systolic 101–138; BP diastolic 52–87
[2020-06-16] MEDS: BLOOD SUGAR DIAGNOSTIC STRIP TEST SCH ×5 (00:19→23:01)
[2020-06-16] MEDS: INSULIN LISPRO 100 UNITS/ML SUBCUT SCH ×5 (00:24→23:49)
[2020-06-16] MEDS: PROPOFOL 10MG/ML 100ML 100 ML IV PRN ×2 (00:31→06:31)
[2020-06-16] MEDS: IPRATROPIUM/ALBUTEROL 0.5-3(2.5)MG/3ML NEB HHN SCH ×4 (01:37→21:45)
[2020-06-16] MEDS: PIPERACILLIN/TAZOBACTAM 2.25 G in DEXTROSE 5% WATER 50 ML IV SCH ×3 (01:48→17:56)
[2020-06-16 04:59] LABS: HEMATOCRIT. 25.6 % (36.0-48.0); HEMOGLOBIN. 8.4 g/dL (12.0-16.0); MEAN CORPUSCULAR HEMOGLOBIN 29.9 pg (28.0-32.0); MEAN CORPUSCULAR VOLUME 90.8 fL (81.0-99.0); MEAN PLATELET VOLUME 10.1 fl (7.4-10.4); PLATELET 152 x1000/uL (130-400); RED BLOOD CELL COUNT 2.82 mill/uL (4.2-5.4); RED CELL DISTRIBUTION WIDTH 13.8 % (11.6-14.6)
[2020-06-16 05:17] LABS: PHOSPHORUS 1.8 mg/dL (2.5-4.9)
[2020-06-16 05:19] LABS: CREATINE KINASE MB FRACTION 40.7 ng/mL (0.5-3.6)
[2020-06-16] MEDS: SODIUM CHLORIDE 0.9% INJ 3ML FLUSH IVF SCH ×3 (06:17→21:17)
[2020-06-16] MEDS ORDERED: GUAIFENESIN 200MG/10ML SUGAR FREE UDC NG PRN (06:38)
[2020-06-16] MEDS ORDERED: CLONIDINE 0.1MG TABLET NG PRN (06:39)
[2020-06-16] MEDS ORDERED: DOCUSATE SODIUM SUGAR FREE 100MG/10ML UDC NG PRN (06:40)
[2020-06-16] MEDS ORDERED: HYDROCODONE/ACETAMINOPHEN 10/325MG TABLET NG PRN (06:40)
[2020-06-16] MEDS ORDERED: MAGNESIUM/ALUMINUM HYDROXIDE/SIMETHICONE 30ML UDC NG PRN (06:41)
[2020-06-16] MEDS: MORPHINE SULFATE 2 MG/ML CPJ (NOT FOR IM USE) IV PRN (07:47)
[2020-06-16 08:58] LABS: BG BASE EXCESS -14.9 mmol/L (-2.0-2.0); BG CARBOXYHEMOGLOBIN 0.3 % (0.5-1.5); BG DEOXYHEMOGLOBIN 1.1 % (0.0-5.0); BG FRACTION INSPIRED OXYGEN 40; BG HCO3 ACT 10.1 mmol/L (22.0-26.0); BG METHEMOGLOBIN 0.3 % (0.0-1.5); BG OXYGEN SATURATION 98.9 % (92.0-98.5); BG OXYHEMOGLOBIN 98.3 % (94.0-97.0); BG PCO2 21.5 mmHg (35.0-45.0); BG PO2 196.2 mmHg (75.0-100.0); BG SAMPLE SITE LEFT RADIAL; BG TOTAL HEMOGLOBIN 8.3 g/dL (12.0-18.0); BG VENT MODE VENT - AC
[2020-06-16] MEDS ORDERED: SODIUM BICARBONATE 8.4% 1 MEQ/ML 50ML SYR IV SCH (09:00)
[2020-06-16] MEDS: METOPROLOL TARTRATE 25MG TABLET NG SCH ×2 (09:52→21:23)
[2020-06-16] MEDS: LEVETIRACETAM 250 MG in SODIUM CHLORIDE 0.9% 100 ML IV SCH ×2 (09:52→21:16)
[2020-06-16] MEDS ORDERED: INSULIN GLARGINE UD 100 UNITS/ML SYR SUBCUT SCH (10:00)
[2020-06-16] MEDS ORDERED: VANCOMYCIN 750 MG PREMIX 150 ML IV SCH (10:00)
[2020-06-16] MEDS ORDERED: POTASSIUM CHLORIDE INJ 40 MEQ in DEXT 5% WATER 250 ML IV SCH (10:00)
[2020-06-16 10:01] LABS: PLATELET ESTIMATE NORMAL
[2020-06-16] MEDS: NICARDIPINE 100 MG in SODIUM CHLORIDE 0.9% 60 ML IV PRN ×2 (10:14→23:48)
[2020-06-16] MEDS: SODIUM BICARBONATE 100 MEQ in SODIUM CHLORIDE 0.45% 900 ML IV SCH ×2 (10:27→21:16)
[2020-06-17] VITALS (96 sets, daily range): BP systolic 107–147; BP diastolic 44–96
[2020-06-17] MEDS: PIPERACILLIN/TAZOBACTAM 2.25 G in DEXTROSE 5% WATER 50 ML IV SCH ×3 (01:40→17:06)
[2020-06-17] MEDS: IPRATROPIUM/ALBUTEROL 0.5-3(2.5)MG/3ML NEB HHN SCH ×4 (02:55→19:49)
[2020-06-17 04:29] LABS: HEMATOCRIT. 22.9 % (36.0-48.0); HEMOGLOBIN. 7.5 g/dL (12.0-16.0); MEAN CORPUSCULAR HEMOGLOBIN 29.1 pg (28.0-32.0); MEAN CORPUSCULAR VOLUME 88.5 fL (81.0-99.0); MEAN PLATELET VOLUME 9.4 fl (7.4-10.4); PLATELET 155 x1000/uL (130-400); RED BLOOD CELL COUNT 2.58 mill/uL (4.2-5.4); RED CELL DISTRIBUTION WIDTH 13.8 % (11.6-14.6)
[2020-06-17 05:02] LABS: PHOSPHORUS 0.3 mg/dL (2.5-4.9)
[2020-06-17] MEDS: BLOOD SUGAR DIAGNOSTIC STRIP TEST SCH ×4 (05:49→23:02)
[2020-06-17] MEDS: SODIUM CHLORIDE 0.9% INJ 3ML FLUSH IVF SCH ×3 (05:49→21:19)
[2020-06-17] MEDS ORDERED: MAGNESIUM 2 G PREMIX 50 ML IV NR (07:00)
[2020-06-17] MEDS ORDERED: POTASSIUM PHOS,M-BASIC-D-BASIC 30 MMOL in DEXT 5% WATER 500 ML IV NR (07:00)
[2020-06-17] MEDS: SODIUM CHLORIDE 0.45% 1,000 ML IV SCH ×3 (08:04→23:12)
[2020-06-17] MEDS: INSULIN LISPRO 100 UNITS/ML SUBCUT SCH ×4 (08:06→23:03)
[2020-06-17 09:15] LABS: BG BASE EXCESS 0.4 mmol/L (-2.0-2.0); BG CARBOXYHEMOGLOBIN 0.2 % (0.5-1.5); BG DEOXYHEMOGLOBIN 1.8 % (0.0-5.0); BG FRACTION INSPIRED OXYGEN 30; BG HCO3 ACT 22.5 mmol/L (22.0-26.0); BG METHEMOGLOBIN 1.3 % (0.0-1.5); BG OXYGEN SATURATION 98.2 % (92.0-98.5); BG OXYHEMOGLOBIN 96.7 % (94.0-97.0); BG PCO2 26.8 mmHg (35.0-45.0); BG PH 7.541 (7.350-7.450); BG PO2 170.8 mmHg (75.0-100.0); BG SAMPLE SITE RIGHT BRACHIAL; BG TOTAL HEMOGLOBIN 8.5 g/dL (12.0-18.0); BG VENT MODE VENT - AC
[2020-06-17] MEDS: PANTOPRAZOLE SODIUM 40 MG/VIAL IV SCH (09:47)
[2020-06-17] MEDS: METOPROLOL TARTRATE 25MG TABLET NG SCH ×2 (09:47→20:37)
[2020-06-17] MEDS: LEVETIRACETAM 250 MG in SODIUM CHLORIDE 0.9% 100 ML IV SCH ×2 (09:48→21:28)
[2020-06-17] MEDS ORDERED: INSULIN GLARGINE UD 100 UNITS/ML SYR SUBCUT SCH (10:00)
[2020-06-17] MEDS ORDERED: POTASSIUM CHLORIDE INJ 60 MEQ in DEXT 5% WATER 500 ML IV NR (13:00)
[2020-06-17 14:53] LABS: PLATELET ESTIMATE NORMAL
[2020-06-17] MEDS ORDERED: POTASSIUM CHLORIDE 20MEQ/PACKET NG NR (20:00)
[2020-06-17] MEDS: INSULIN GLARGINE UD 100 UNITS/ML SYR SUBCUT SCH (23:03)
[2020-06-18] VITALS (98 sets, daily range): BP systolic 99–151; BP diastolic 61–101
[2020-06-18] MEDS: IPRATROPIUM/ALBUTEROL 0.5-3(2.5)MG/3ML NEB HHN SCH ×4 (02:13→20:42)
[2020-06-18] MEDS: PIPERACILLIN/TAZOBACTAM 2.25 G in DEXTROSE 5% WATER 50 ML IV SCH ×3 (02:59→18:00)
[2020-06-18] MEDS: MORPHINE SULFATE 2 MG/ML CPJ (NOT FOR IM USE) IV PRN ×3 (03:46→12:51)
[2020-06-18 05:43] LABS: HEMATOCRIT. 21.5 % (36.0-48.0); HEMOGLOBIN. 7.1 g/dL (12.0-16.0); MEAN CORPUSCULAR HEMOGLOBIN 29.3 pg (28.0-32.0); MEAN CORPUSCULAR VOLUME 89.5 fL (81.0-99.0); MEAN PLATELET VOLUME 9.5 fl (7.4-10.4); PLATELET 149 x1000/uL (130-400); RED BLOOD CELL COUNT 2.41 mill/uL (4.2-5.4)
[2020-06-18] MEDS: SODIUM CHLORIDE 0.9% INJ 3ML FLUSH IVF SCH ×2 (05:56→21:05)
[2020-06-18] MEDS: BLOOD SUGAR DIAGNOSTIC STRIP TEST SCH ×4 (05:56→23:23)
[2020-06-18] MEDS: INSULIN LISPRO 100 UNITS/ML SUBCUT SCH ×4 (06:03→23:23)
[2020-06-18 06:31] LABS: PHOSPHORUS 0.8 mg/dL (2.5-4.9)
[2020-06-18] MEDS ORDERED: POTASSIUM CHLORIDE 20MEQ/PACKET PO NR ×2 (06:45→20:00)
[2020-06-18] MEDS ORDERED: SODIUM CHL 0.45% + KCL 20MEQ/L 1,000 ML IV SCH (06:45)
[2020-06-18] MEDS ORDERED: POTASSIUM CHLORIDE INJ 40 MEQ in SODIUM CHLORIDE 0.45% 1,000 ML IV SCH (08:00)
[2020-06-18] MEDS: PANTOPRAZOLE SODIUM 40 MG/VIAL IV SCH (08:13)
[2020-06-18] MEDS: METOPROLOL TARTRATE 25MG TABLET NG SCH ×2 (08:14→20:30)
[2020-06-18] MEDS ORDERED: POTASSIUM PHOS,M-BASIC-D-BASIC 30 MMOL in DEXT 5% WATER 500 ML IV ONE (09:00)
[2020-06-18] MEDS ORDERED: DEXT 5% WATER + KCL 40MEQ/L 1,000 ML IV SCH (09:00)
[2020-06-18] MEDS: POTASSIUM CHLORIDE INJ 40 MEQ in DEXTROSE 5% WATER 1,000 ML IV SCH ×2 (09:12→23:04)
[2020-06-18] MEDS: LEVETIRACETAM 250 MG in SODIUM CHLORIDE 0.9% 100 ML IV SCH ×2 (09:14→21:05)
[2020-06-18 09:23] LABS: PLATELET ESTIMATE NORMAL
[2020-06-18 09:35] LABS: BG BASE EXCESS 7.1 mmol/L (-2.0-2.0); BG DEOXYHEMOGLOBIN 1.1 % (0.0-5.0); BG FRACTION INSPIRED OXYGEN 30; BG HCO3 ACT 28.1 mmol/L (22.0-26.0); BG METHEMOGLOBIN 0.6 % (0.0-1.5); BG OXYGEN SATURATION 98.9 % (92.0-98.5); BG OXYHEMOGLOBIN 97.3 % (94.0-97.0); BG PCO2 26.1 mmHg (35.0-45.0); BG PO2 150.6 mmHg (75.0-100.0); BG SAMPLE SITE RIGHT BRACHIAL; BG TOTAL HEMOGLOBIN 7.5 g/dL (12.0-18.0); BG VENT MODE VENT - AC
[2020-06-18] MEDS ORDERED: VANCOMYCIN 750 MG PREMIX 150 ML IV SCH (10:00)
[2020-06-18] MEDS: INSULIN GLARGINE UD 100 UNITS/ML SYR SUBCUT SCH (10:18)
[2020-06-18 13:41] LABS: BG BASE EXCESS 4.8 mmol/L (-2.0-2.0); BG CARBOXYHEMOGLOBIN 0.3 % (0.5-1.5); BG DEOXYHEMOGLOBIN 1.1 % (0.0-5.0); BG FRACTION INSPIRED OXYGEN 30; BG METHEMOGLOBIN 0.3 % (0.0-1.5); BG OXYGEN SATURATION 98.9 % (92.0-98.5); BG OXYHEMOGLOBIN 98.3 % (94.0-97.0); BG PCO2 30.8 mmHg (35.0-45.0); BG PH 7.561 (7.350-7.450); BG SAMPLE SITE RIGHT RADIAL; BG TOTAL HEMOGLOBIN 8.7 g/dL (12.0-18.0); BG VENT MODE VENT - AC
[2020-06-18 16:38] LABS: BG BASE EXCESS 6.2 mmol/L (-2.0-2.0); BG CARBOXYHEMOGLOBIN 0.3 % (0.5-1.5); BG DEOXYHEMOGLOBIN 1.6 % (0.0-5.0); BG FRACTION INSPIRED OXYGEN 30; BG HCO3 ACT 30.1 mmol/L (22.0-26.0); BG METHEMOGLOBIN 0.1 % (0.0-1.5); BG OXYGEN SATURATION 98.4 % (92.0-98.5); BG PCO2 40.8 mmHg (35.0-45.0); BG PH 7.486 (7.350-7.450); BG PO2 142.2 mmHg (75.0-100.0); BG SAMPLE SITE RIGHT RADIAL; BG TOTAL HEMOGLOBIN 7.6 g/dL (12.0-18.0); BG VENT MODE VENT - SIMV
[2020-06-19] VITALS (95 sets, daily range): BP systolic 80–146; BP diastolic 53–91
[2020-06-19] MEDS: PIPERACILLIN/TAZOBACTAM 2.25 G in DEXTROSE 5% WATER 50 ML IV SCH ×3 (01:41→18:59)
[2020-06-19] MEDS: IPRATROPIUM/ALBUTEROL 0.5-3(2.5)MG/3ML NEB HHN SCH ×4 (02:00→20:43)
[2020-06-19] MEDS: MORPHINE SULFATE 2 MG/ML CPJ (NOT FOR IM USE) IV PRN (02:45)
[2020-06-19] MEDS: BLOOD SUGAR DIAGNOSTIC STRIP TEST SCH ×4 (05:34→23:56)
[2020-06-19] MEDS: SODIUM CHLORIDE 0.9% INJ 3ML FLUSH IVF SCH ×3 (05:34→21:38)
[2020-06-19] MEDS: INSULIN LISPRO 100 UNITS/ML SUBCUT SCH ×3 (05:36→18:59)
[2020-06-19 05:48] LABS: MEAN CORPUSCULAR VOLUME 91.4 fL (81.0-99.0); MEAN PLATELET VOLUME 10.7 fl (7.4-10.4); PLATELET 152 x1000/uL (130-400); RED BLOOD CELL COUNT 2.23 mill/uL (4.2-5.4); RED CELL DISTRIBUTION WIDTH 14.2 % (11.6-14.6)
[2020-06-19 06:08] LABS: PHOSPHORUS 2.9 mg/dL (2.5-4.9)
[2020-06-19 06:22] LABS: HEMATOCRIT. 20.4 % (36.0-48.0); HEMOGLOBIN. 6.5 g/dL (12.0-16.0)
[2020-06-19] MEDS ORDERED: MAGNESIUM 2 G PREMIX 50 ML IV SCH (09:00)
[2020-06-19 09:01] LABS: BG CARBOXYHEMOGLOBIN 0.9 % (0.5-1.5); BG DEOXYHEMOGLOBIN 1.2 % (0.0-5.0); BG FRACTION INSPIRED OXYGEN 30; BG HCO3 ACT 26.6 mmol/L (22.0-26.0); BG METHEMOGLOBIN 0.7 % (0.0-1.5); BG OXYGEN SATURATION 98.8 % (92.0-98.5); BG OXYHEMOGLOBIN 97.2 % (94.0-97.0); BG PCO2 35.9 mmHg (35.0-45.0); BG PH 7.487 (7.350-7.450); BG PO2 137.5 mmHg (75.0-100.0); BG SAMPLE SITE LEFT RADIAL; BG VENT MODE VENT - SIMV
[2020-06-19] MEDS: METOPROLOL TARTRATE 25MG TABLET NG SCH ×3 (09:10→22:17)
[2020-06-19] MEDS: LEVETIRACETAM 250 MG in SODIUM CHLORIDE 0.9% 100 ML IV SCH ×2 (09:10→22:16)
[2020-06-19] MEDS: PANTOPRAZOLE SODIUM 40 MG/VIAL IV SCH (09:11)
[2020-06-19 09:26] LABS: PLATELET ESTIMATE NORMAL
[2020-06-19] MEDS: DEXTROSE 5% WATER 1,000 ML IV SCH (09:57)
[2020-06-19] MEDS ORDERED: VANCOMYCIN 750 MG PREMIX 150 ML IV SCH (11:00)
[2020-06-19] MEDS: INSULIN GLARGINE UD 100 UNITS/ML SYR SUBCUT SCH (12:00)
[2020-06-19 14:50] LABS: BG BASE EXCESS 2.3 mmol/L (-2.0-2.0); BG CARBOXYHEMOGLOBIN 1.2 % (0.5-1.5); BG DEOXYHEMOGLOBIN 5.4 % (0.0-5.0); BG FRACTION INSPIRED OXYGEN 30; BG HCO3 ACT 26.4 mmol/L (22.0-26.0); BG METHEMOGLOBIN 0.6 % (0.0-1.5); BG OXYGEN SATURATION 94.5 % (92.0-98.5); BG OXYHEMOGLOBIN 92.8 % (94.0-97.0); BG PCO2 38.5 mmHg (35.0-45.0); BG PH 7.454 (7.350-7.450); BG SAMPLE SITE LEFT RADIAL; BG TOTAL HEMOGLOBIN 6.4 g/dL (12.0-18.0); BG TOTAL RESPIRATORY RATE 23 b/min; BG VENT MODE VENT - CPAP
[2020-06-20] VITALS (90 sets, daily range): BP systolic 105–143; BP diastolic 57–94
[2020-06-20] MEDS: INSULIN LISPRO 100 UNITS/ML SUBCUT SCH ×5 (00:22→23:53)
[2020-06-20] MEDS: DEXTROSE 5% WATER 1,000 ML IV SCH ×2 (00:22→13:12)
[2020-06-20] MEDS: IPRATROPIUM/ALBUTEROL 0.5-3(2.5)MG/3ML NEB HHN SCH ×4 (02:26→20:36)
[2020-06-20 05:07] LABS: HEMATOCRIT. 24.5 % (36.0-48.0); HEMOGLOBIN. 8.1 g/dL (12.0-16.0); MEAN CORPUSCULAR HEMOGLOBIN 29.9 pg (28.0-32.0); MEAN CORPUSCULAR VOLUME 90.6 fL (81.0-99.0); MEAN PLATELET VOLUME 10.9 fl (7.4-10.4); PLATELET 175 x1000/uL (130-400); RED CELL DISTRIBUTION WIDTH 14.5 % (11.6-14.6)
[2020-06-20] MEDS: BLOOD SUGAR DIAGNOSTIC STRIP TEST SCH ×4 (05:16→23:44)
[2020-06-20] MEDS: SODIUM CHLORIDE 0.9% INJ 3ML FLUSH IVF SCH ×3 (05:16→22:00)
[2020-06-20 05:25] LABS: PHOSPHORUS 2.2 mg/dL (2.5-4.9)
[2020-06-20] MEDS: METOPROLOL TARTRATE 25MG TABLET NG SCH ×3 (05:34→21:27)
[2020-06-20 08:24] LABS: PLATELET ESTIMATE NORMAL
[2020-06-20] MEDS: LEVETIRACETAM 250 MG in SODIUM CHLORIDE 0.9% 100 ML IV SCH ×2 (10:35→21:27)
[2020-06-20] MEDS: PANTOPRAZOLE SODIUM 40 MG/VIAL IV SCH (10:35)
[2020-06-20] MEDS: INSULIN GLARGINE UD 100 UNITS/ML SYR SUBCUT SCH (13:09)
[2020-06-20] MEDS: NICARDIPINE 100 MG in SODIUM CHLORIDE 0.9% 60 ML IV PRN (23:52)
[2020-06-21] VITALS (76 sets, daily range): BP systolic 96–168; BP diastolic 46–105
[2020-06-21] MEDS: IPRATROPIUM/ALBUTEROL 0.5-3(2.5)MG/3ML NEB HHN SCH ×4 (02:00→20:05)
[2020-06-21] MEDS: DEXTROSE 5% WATER 1,000 ML IV SCH (03:30)
[2020-06-21] MEDS: BLOOD SUGAR DIAGNOSTIC STRIP TEST SCH ×4 (05:46→23:43)
[2020-06-21] MEDS: METOPROLOL TARTRATE 25MG TABLET NG SCH ×3 (05:46→23:42)
[2020-06-21] MEDS: SODIUM CHLORIDE 0.9% INJ 3ML FLUSH IVF SCH ×3 (05:47→22:00)
[2020-06-21 05:48] LABS: HEMATOCRIT. 26.3 % (36.0-48.0); HEMOGLOBIN. 8.5 g/dL (12.0-16.0); MEAN CORPUSCULAR HEMOGLOBIN 29.3 pg (28.0-32.0); MEAN CORPUSCULAR VOLUME 90.9 fL (81.0-99.0); MEAN PLATELET VOLUME 11.2 fl (7.4-10.4); PLATELET 224 x1000/uL (130-400); RED BLOOD CELL COUNT 2.89 mill/uL (4.2-5.4); RED CELL DISTRIBUTION WIDTH 14.1 % (11.6-14.6)
[2020-06-21] MEDS: INSULIN LISPRO 100 UNITS/ML SUBCUT SCH ×4 (05:49→23:43)
[2020-06-21] MEDS: ACETAMINOPHEN 325MG TABLET PO PRN (06:02)
[2020-06-21] MEDS ORDERED: POTASSIUM CHLORIDE 20MEQ TABLET SR PO NR (07:15)
[2020-06-21] MEDS: PANTOPRAZOLE SODIUM 40 MG/VIAL IV SCH (09:27)
[2020-06-21] MEDS: LEVETIRACETAM 250 MG in SODIUM CHLORIDE 0.9% 100 ML IV SCH ×2 (09:27→23:42)
[2020-06-21] MEDS: INSULIN GLARGINE UD 100 UNITS/ML SYR SUBCUT SCH (09:28)
[2020-06-21 12:57] LABS: NUCLEATED RED BLOOD CELLS 1 /100 WBC; PLATELET ESTIMATE NORMAL
[2020-06-21] MEDS ORDERED: INSULIN GLARGINE UD 100 UNITS/ML SYR SUBCUT SCH (22:00)
[2020-06-21] MEDS ORDERED: IOHEXOL-350 100 ML BOTTLE ONE (23:07)
[2020-06-22] VITALS (17 sets, daily range): BP systolic 105–189; BP diastolic 55–87
[2020-06-22] MEDS: SODIUM CHLORIDE 0.9% INJ 3ML FLUSH IVF SCH ×3 (06:05→22:07)
[2020-06-22] MEDS: METOPROLOL TARTRATE 25MG TABLET NG SCH (06:05)
[2020-06-22 06:19] LABS: HEMATOCRIT. 21.5 % (36.0-48.0); HEMOGLOBIN. 7.1 g/dL (12.0-16.0); MEAN CORPUSCULAR HEMOGLOBIN 29.6 pg (28.0-32.0); MEAN CORPUSCULAR VOLUME 90.4 fL (81.0-99.0); MEAN PLATELET VOLUME 10.8 fl (7.4-10.4); PLATELET 260 x1000/uL (130-400); RED BLOOD CELL COUNT 2.38 mill/uL (4.2-5.4); RED CELL DISTRIBUTION WIDTH 13.9 % (11.6-14.6)
[2020-06-22] MEDS: BLOOD SUGAR DIAGNOSTIC STRIP TEST SCH ×4 (07:30→21:00)
[2020-06-22 07:53] LABS: PHOSPHORUS 2.4 mg/dL (2.5-4.9)
[2020-06-22] MEDS: IPRATROPIUM/ALBUTEROL 0.5-3(2.5)MG/3ML NEB HHN SCH ×3 (08:37→20:39)
[2020-06-22] MEDS: LEVETIRACETAM 250 MG in SODIUM CHLORIDE 0.9% 100 ML IV SCH ×2 (08:41→22:01)
[2020-06-22] MEDS: ACETAMINOPHEN 325MG TABLET PO PRN ×3 (08:41→22:00)
[2020-06-22] MEDS: PANTOPRAZOLE SODIUM 40 MG/VIAL IV SCH (08:41)
[2020-06-22] MEDS: INSULIN LISPRO 100 UNITS/ML SUBCUT SCH ×4 (08:43→22:07)
[2020-06-22 09:57] LABS: PLATELET ESTIMATE NORMAL
[2020-06-22] MEDS: METOPROLOL TARTRATE 25MG TABLET PO SCH ×3 (11:03→21:58)
[2020-06-22] MEDS: INSULIN GLARGINE UD 100 UNITS/ML SYR SUBCUT SCH (11:04)
[2020-06-22] MEDS: MAGNESIUM GLUCONATE 500MG TABLET PO SCH (11:05)
[2020-06-22] MEDS ORDERED: POTASSIUM PHOS,M-BASIC-D-BASIC 20 MMOL in DEXT 5% WATER 243.3333 ML IV NR (13:30)
[2020-06-22] MEDS ORDERED: MAGNESIUM 2 G PREMIX 50 ML IV NR (13:30)
[2020-06-22 16:25] LABS: FOLIC ACID (FOLATE) SERUM 7.5 ng/mL (>5.38)
[2020-06-23] VITALS (10 sets, daily range): BP systolic 105–129; BP diastolic 60–95
[2020-06-23] MEDS: IPRATROPIUM/ALBUTEROL 0.5-3(2.5)MG/3ML NEB HHN SCH ×3 (01:19→09:11)
[2020-06-23 05:47] LABS: HEMATOCRIT. 25.9 % (36.0-48.0); HEMOGLOBIN. 8.6 g/dL (12.0-16.0); MEAN CORPUSCULAR HEMOGLOBIN 29.6 pg (28.0-32.0); MEAN CORPUSCULAR VOLUME 89.3 fL (81.0-99.0); MEAN PLATELET VOLUME 10.4 fl (7.4-10.4); PLATELET 315 x1000/uL (130-400); RED CELL DISTRIBUTION WIDTH 14.6 % (11.6-14.6)
[2020-06-23 05:52] LABS: CHLORIDE 113 mEq/L (98-107)
[2020-06-23 06:04] LABS: PHOSPHORUS 4.1 mg/dL (2.5-4.9)
[2020-06-23] MEDS: SODIUM CHLORIDE 0.9% INJ 3ML FLUSH IVF SCH ×2 (06:49→14:06)
[2020-06-23] MEDS: METOPROLOL TARTRATE 25MG TABLET PO SCH ×2 (06:49→14:06)
[2020-06-23] MEDS: BLOOD SUGAR DIAGNOSTIC STRIP TEST SCH ×3 (06:49→17:19)
[2020-06-23] MEDS: MAGNESIUM GLUCONATE 500MG TABLET PO SCH (08:17)
[2020-06-23] MEDS: PANTOPRAZOLE SODIUM 40 MG/VIAL IV SCH (08:17)
[2020-06-23] MEDS: INSULIN LISPRO 100 UNITS/ML SUBCUT SCH ×2 (08:18→12:27)
[2020-06-23] MEDS: LEVETIRACETAM 250 MG in SODIUM CHLORIDE 0.9% 100 ML IV SCH (08:19)
[2020-06-23 09:14] LABS: PLATELET ESTIMATE NORMAL
[2020-06-23] MEDS: ACETAMINOPHEN 325MG TABLET PO PRN (09:18)
[2020-06-23] MEDS: INSULIN GLARGINE UD 100 UNITS/ML SYR SUBCUT SCH (09:20)
[2020-06-23] MEDS ORDERED: SODIUM CHLORIDE 0.9% 500 ML IV SCH (10:30)
[2020-06-23] MEDS ORDERED: PIPERACILLIN/TAZOBACTAM 3.375 G in DEXT 5% WATER 100 ML IV SCH (17:00)
[2020-06-23 17:15] LABS: HEMOGLOBIN 8.6 g/dL (12.0-16.0)
== END 2020-06-23 19:08 | disposition home or self-care (01) | DRG 853 ==
LOC: ER 16:29 → MICUSO 17:50 → EDBEDREQTM 17:57 → EDBEDREQ 17:57 → ENRESERV 19:37 → MICUSO 20:10 → MICUNO 06-16 06:27 → 5EST 06-21 20:19
PROVIDERS: ADMIT Internal Medicine; ATTEND Internal Medicine
PROC: 009600Z Drainage of Cerebral Ventricle with Drainage Device, Open Approach (ICD-10-PCS; 2020-06-14)
PROC: 00C30ZZ Extirpation of Matter from Intracranial Epidural Space, Open Approach (ICD-10-PCS; 2020-06-14)
PROC: 5A1955Z Respiratory Ventilation, Greater than 96 Consecutive Hours (ICD-10-PCS; 2020-06-14)
PROC: 0BH17EZ Insertion of Endotracheal Airway into Trachea, Via Natural or Artificial Opening (ICD-10-PCS; 2020-06-14)
PROC: 30233N1 Transfusion of Nonautologous Red Blood Cells into Peripheral Vein, Percutaneous Approach (ICD-10-PCS; principal; 2020-06-19)
DX: A41.9 Sepsis, unspecified organism (principal); E11.10 Type 2 diabetes mellitus with ketoacidosis without coma; E43 Unspecified severe protein-calorie malnutrition; J96.01 Acute respiratory failure with hypoxia; N17.0 Acute kidney failure with tubular necrosis; I61.5 Nontraumatic intracerebral hemorrhage, intraventricular; I61.4 Nontraumatic intracerebral hemorrhage in cerebellum; E87.0 Hyperosmolality and hypernatremia; G93.40 Encephalopathy, unspecified; M62.82 Rhabdomyolysis; G91.9 Hydrocephalus, unspecified; I47.2 Ventricular tachycardia; E87.1 Hypo-osmolality and hyponatremia; I47.1 Supraventricular tachycardia; E11.22 Type 2 diabetes mellitus with diabetic chronic kidney disease; D64.9 Anemia, unspecified; E87.5 Hyperkalemia; N18.9 Chronic kidney disease, unspecified; K82.8 Other specified diseases of gallbladder; G40.901 Epilepsy, unspecified, not intractable, with status epilepticus; E86.0 Dehydration; E87.8 Other disorders of electrolyte and fluid balance, not elsewhere classified; N18.30 Chronic kidney disease, stage 3 unspecified; I12.9 Hypertensive chronic kidney disease with stage 1 through stage 4 chronic kidney disease, or unspecified chronic kidney disease; E83.39 Other disorders of phosphorus metabolism; E87.6 Hypokalemia; F12.90 Cannabis use, unspecified, uncomplicated; Z20.828 Contact with and (suspected) exposure to other viral communicable diseases; Z78.1 Physical restraint status; Z98.2 Presence of cerebrospinal fluid drainage device; Z79.4 Long term (current) use of insulin; Z68.23 Body mass index [BMI] 23.0-23.9, adult
CPT/HCPCS: 36415; 36600; 70496; 71045; 76700; 80048; 80053; 80076; 80156; 80165; 80184; 80185; 80202; 80305; 80320; 81003; 82150; 82270; 82375; 82550; 82553; 82728; 82746; 82805; 82962; 83036; 83540; 83550; 83605; 83615; 83735; 83880; 83935; 84100; 84145; 84443; 84478; 84484; 84703; 85014; 85018; 85025; 85044; 85379; 85651; 86140; 86850; 86900; 86920; 87070; 87635; 93005; 93306; 93970; 93971; 94002; 94003; 94640; 94644; 97116; 97162; 97166; 97530; 97535; 99291; C9113; J0690; J1100; J1815; J1953; J2060; J2270; J2543; J2704; J3370; J3475; J3480; J3490; J7030; J7050; J7060; J7070; P9016; Q9967; G0480

== ENCOUNTER 2020-11-30 11:38 | Inpatient (IN) | payer OTHER ==
[~2020-11-30] VITALS: Ht 165.1 cm; Wt 58.7 kg
[2020-11-30] MEDS ORDERED: ONDANSETRON HCL 4MG/2ML INJ IV STA (11:48)
[2020-11-30] MEDS ORDERED: SODIUM CHLORIDE 0.9% 1000ML BAG (SEPSIS BOLUS) IV ONE (12:00)
[2020-11-30 12:43] LABS: HEMATOCRIT. 40.1 % (36.0-48.0); HEMOGLOBIN. 12.6 g/dL (12.0-16.0); MEAN CORPUSCULAR HEMOGLOBIN 32.1 pg (28.0-32.0); MEAN CORPUSCULAR VOLUME 101.7 fL (81.0-99.0); MEAN PLATELET VOLUME 10.2 fl (7.4-10.4); PLATELET 211 x1000/uL (130-400); RED BLOOD CELL COUNT 3.94 mill/uL (4.2-5.4); RED CELL DISTRIBUTION WIDTH 14.5 % (11.6-14.6)
[2020-11-30 12:44] LABS: BG BASE EXCESS -7.8 mmol/L (-2.0-2.0); BG CARBOXYHEMOGLOBIN 1.4 % (0.5-1.5); BG DEOXYHEMOGLOBIN 2.6 % (0.0-5.0); BG FRACTION INSPIRED OXYGEN 21; BG HCO3 ACT 16.7 mmol/L (22.0-26.0); BG METHEMOGLOBIN 0.1 % (0.0-1.5); BG OXYGEN SATURATION 97.4 % (92.0-98.5); BG OXYHEMOGLOBIN 95.9 % (94.0-97.0); BG PCO2 31.3 mmHg (35.0-45.0); BG PH 7.345 (7.350-7.450); BG PO2 99.6 mmHg (75.0-100.0); BG SAMPLE SITE RIGHT RADIAL; BG TOTAL HEMOGLOBIN 12.9 g/dL (12.0-18.0); BG VENT MODE ROOM AIR
[2020-11-30 12:51] LABS: CHLORIDE 104 mEq/L (98-107)
[2020-11-30 12:55] LABS: ETHANOL BLOOD < 10 mg/dL
[2020-11-30] MEDS ORDERED: INSULIN REGULAR (DRIP) 100 UNITS in SODIUM CHLORIDE 0.9% 99 ML IV ONE (13:00)
[2020-11-30 13:01] LABS: HCG SCREEN NEGATIVE
[2020-11-30 13:12] LABS: PLATELET ESTIMATE NORMAL
[2020-11-30] MEDS ORDERED: INSULIN REGULAR (DRIP) 100 UNITS in SODIUM CHLORIDE 0.9% 99 ML IV SCH (13:15)
[2020-11-30] MEDS ORDERED: LEVETIRACETAM 500MG PREMIX 100 ML IV ONE (13:15)
[2020-11-30] MEDS ORDERED: PIPERACILLIN/TAZ 3.375G PREMIX 50 ML IV ONE (13:15)
[2020-11-30] MEDS ORDERED: MORPHINE SULFATE 4 MG/ML CPJ (NOT FOR IM USE) IV ONE (14:00)
[2020-11-30] MEDS ORDERED: SODIUM CHLORIDE 0.45% 1,000 ML IV SCH (14:00)
[2020-11-30 14:27] LABS: INR 0.9; PROTHROMBIN TIME 10.2 sec (9.6-11.0)
[2020-11-30] MEDS: SODIUM CHLORIDE 0.45% 1,000 ML IV SCH (15:45)
[2020-11-30 16:06] LABS: CLARITY URINE CLEAR (CLEAR); COLOR URINE YELLOW (YELLOW); KETONES URINE 1+ (NEGATIVE); LEUKOCYTE ESTERASE URINE NEGATIVE (NEGATIVE); NITRITE URINE NEGATIVE (NEGATIVE); OCCULT BLOOD URINE NEGATIVE (NEGATIVE); PROTEIN URINE NEGATIVE (NEGATIVE); SPECIFIC GRAVITY URINE 1.032 (1.005-1.030); UROBILINOGEN URINE 0.2 E.U./dL (0.2-1.0)
[2020-11-30 16:22] LABS: *AMPHETAMINES SCREEN URINE NEGATIVE (NEGATIVE); *BARBITURATES SCREEN URINE NEGATIVE (NEGATIVE); *BENZODIAZEPINES SCREEN URINE NEGATIVE (NEGATIVE); *COCAINE SCREEN URINE NEGATIVE (NEGATIVE); METHADONE URINE SCREEN NEGATIVE (NEGATIVE)
[2020-11-30 16:23] LABS: OPIATES URINE SCREEN NEGATIVE (NEGATIVE); PHENCYCLIDINE URINE SCREEN NEGATIVE (NEGATIVE)
[2020-11-30 16:28] LABS: CANNABINOID URINE SCREEN PRESUMTIVE POSITIVE (NEGATIVE)
[2020-11-30] MEDS ORDERED: IPRATROPIUM/ALBUTEROL 0.5-3(2.5)MG/3ML NEB HHN PRN (17:45)
[2020-11-30] MEDS ORDERED: HYDROCODONE/ACETAMINOPHEN 5/325MG TABLET PO PRN (17:45)
[2020-11-30] MEDS ORDERED: DIPHENHYDRAMINE 50MG/ML VIAL IV PRN (17:45)
[2020-11-30] MEDS ORDERED: MORPHINE SULFATE 2 MG/ML CPJ (NOT FOR IM USE) IV PRN (17:45)
[2020-11-30] MEDS ORDERED: MAGNESIUM/ALUMINUM HYDROXIDE/SIMETHICONE 30ML UDC PO PRN (17:45)
[2020-11-30] MEDS ORDERED: GUAIFENESIN 200MG/10ML SUGAR FREE UDC PO PRN (17:45)
[2020-11-30] MEDS ORDERED: DOCUSATE SODIUM 100MG CAPSULE PO PRN (17:45)
[2020-11-30] MEDS ORDERED: ONDANSETRON HCL 4MG/2ML INJ IV PRN (17:45)
[2020-11-30] MEDS ORDERED: LORAZEPAM 2MG/ML CPJ IV PRN (17:45)
[2020-11-30] MEDS ORDERED: CLONIDINE 0.1MG TABLET PO PRN (17:45)
[2020-11-30] MEDS ORDERED: DEXTROSE 50% WATER 50ML SYRINGE IV PRN ×3 (17:45→22:30)
[2020-11-30] MEDS ORDERED: HYDRALAZINE 20MG/ML VIAL IV PRN (17:45)
[2020-11-30] MEDS ORDERED: ACETAMINOPHEN 325MG TABLET PO PRN (17:45)
[2020-11-30] MEDS ORDERED: PIPERACILLIN/TAZ 3.375G PREMIX 50 ML IV SCH (19:00)
[2020-11-30] MEDS: BLOOD SUGAR DIAGNOSTIC STRIP TEST SCH ×4 (19:14→22:11)
[2020-11-30 19:54] LABS: CHLORIDE 115 mEq/L (98-107)
[2020-11-30] MEDS ORDERED: INSULIN REGULAR (DRIP) 100 UNITS in SODIUM CHLORIDE 0.9% 100 ML IV SCH (20:00)
[2020-11-30] MEDS ORDERED: ENOXAPARIN 40MG/0.4ML SYR SUBCUT SCH (20:00)
[2020-11-30] MEDS: SODIUM CHLORIDE 0.9% INJ 3ML FLUSH IVF SCH (22:11)
[2020-11-30 22:14] LABS: CHLORIDE 116 mEq/L (98-107)
[2020-11-30 22:27] LABS: CREATINE KINASE MB FRACTION 2.7 ng/mL (0.5-3.6)
[2020-11-30 22:37] LABS: CREATINE KINASE 2508 IU/L (26-192)
[2020-12-01] VITALS (7 sets, daily range): BP systolic 92–119; BP diastolic 55–82
[2020-12-01] MEDS ORDERED: INSULIN LISPRO 100 UNITS/ML SUBCUT SCH (01:00)
[2020-12-01] MEDS ORDERED: BLOOD SUGAR DIAGNOSTIC STRIP TEST SCH (01:00)
[2020-12-01] MEDS: PIPERACILLIN/TAZOBACTAM 3.375 G in DEXT 5% WATER 100 ML IV SCH ×2 (01:36→08:08)
[2020-12-01] MEDS: SODIUM CHLORIDE 0.45% 1,000 ML IV SCH (01:37)
[2020-12-01] MEDS: INSULIN LISPRO 100 UNITS/ML SUBCUT SCH ×3 (02:00→08:00)
[2020-12-01] MEDS: BLOOD SUGAR DIAGNOSTIC STRIP TEST SCH ×3 (02:00→08:08)
[2020-12-01] MEDS: SODIUM CHLORIDE 0.9% INJ 3ML FLUSH IVF SCH (06:12)
[2020-12-01 08:33] LABS: BASOPHILS % 0.2 % (0.0-2.0); HEMATOCRIT. 32.6 % (36.0-48.0); HEMOGLOBIN. 10.7 g/dL (12.0-16.0); LYMPHOCYTES % 15.9 % (20.0-50.0); MEAN CORPUSCULAR HEMOGLOBIN 32.3 pg (28.0-32.0); MEAN CORPUSCULAR VOLUME 98.5 fL (81.0-99.0); MEAN PLATELET VOLUME 9.6 fl (7.4-10.4); MONOCYTES % 6.7 % (2.0-8.0); NEUTROPHILS % 77.2 % (40.0-76.0); PLATELET 181 x1000/uL (130-400); RED BLOOD CELL COUNT 3.31 mill/uL (4.2-5.4); RED CELL DISTRIBUTION WIDTH 13.5 % (11.6-14.6)
[2020-12-01 08:59] LABS: CHLORIDE 110 mEq/L (98-107)
[2020-12-01] MEDS ORDERED: LEVETIRACETAM 250MG TABLET PO SCH (09:00)
[2020-12-01 09:10] LABS: CREATINE KINASE MB FRACTION 3.3 ng/mL (0.5-3.6)
[2020-12-01 11:24] LABS: CREATINE KINASE 3820 IU/L (26-192)
[2020-12-01] MEDS ORDERED: INSULIN GLARGINE UD 100 UNITS/ML SYR SUBCUT SCH (23:00)
== END 2020-12-01 11:40 | disposition home or self-care (01) | DRG 638 ==
LOC: ER 11:38 → EDBEDREQ 13:24 → CANRESERV 20:04 → ENRESERV 20:04 → EDBEDREQSVC 22:32 → ENRESERV 22:34 → 3WST 23:19
PROVIDERS: ADMIT Internal Medicine; ATTEND Internal Medicine
DX: E10.10 Type 1 diabetes mellitus with ketoacidosis without coma (principal); R65.10 Systemic inflammatory response syndrome (SIRS) of non-infectious origin without acute organ dysfunction; E10.649 Type 1 diabetes mellitus with hypoglycemia without coma; E83.52 Hypercalcemia; E86.0 Dehydration; E87.5 Hyperkalemia; G40.909 Epilepsy, unspecified, not intractable, without status epilepticus; I10 Essential (primary) hypertension; Z79.4 Long term (current) use of insulin; Z82.49 Family history of ischemic heart disease and other diseases of the circulatory system; Z83.3 Family history of diabetes mellitus
CPT/HCPCS: 36415; 36600; 71045; 80048; 80053; 80305; 80320; 81003; 82010; 82375; 82550; 82553; 82805; 82962; 83036; 83605; 83880; 83930; 83935; 84145; 84484; 84703; 85025; 93005; 99291; J1650; J1815; J1953; J2270; J2405; J2543; J7030; J7050; J7060; G0480

== ENCOUNTER 2021-05-21 12:06 | Inpatient (IN) | payer OTHER ==
[~2021-05-21] VITALS: Ht 157.5 cm; Wt 56.7 kg
[2021-05-21] MEDS ORDERED: LEVETIRACETAM 500MG PREMIX 100 ML IV ONE (12:30)
[2021-05-21] MEDS ORDERED: SODIUM CHLORIDE 0.9% 1,000 ML IV ONE ×3 (12:30→13:45)
[2021-05-21 13:09] LABS: HEMATOCRIT. 40.5 % (36.0-48.0); HEMOGLOBIN. 13.3 g/dL (12.0-16.0); MEAN CORPUSCULAR HEMOGLOBIN 32.7 pg (28.0-32.0); MEAN CORPUSCULAR VOLUME 99.4 fL (81.0-99.0); MEAN PLATELET VOLUME 10.4 fl (7.4-10.4); PLATELET 199 x1000/uL (130-400); RED BLOOD CELL COUNT 4.07 mill/uL (4.2-5.4); RED CELL DISTRIBUTION WIDTH 12.9 % (11.6-14.6)
[2021-05-21] MEDS ORDERED: LORAZEPAM 2MG/ML CPJ IV ONE ×2 (13:15→16:45)
[2021-05-21 13:19] LABS: CHLORIDE 109 mEq/L (98-107)
[2021-05-21 13:29] LABS: BETA HYDROXYBUTYRATE 1.8 mMol/L (0.0-0.3)
[2021-05-21 13:46] LABS: HCG SCREEN NEGATIVE
[2021-05-21 13:55] LABS: PLATELET ESTIMATE NORMAL
[2021-05-21] MEDS ORDERED: CEFTRIAXONE 1 G PREMIX 50 ML IV ONE (15:15)
[2021-05-21 16:07] LABS: CLARITY URINE CLEAR (CLEAR); COLOR URINE YELLOW (YELLOW); KETONES URINE 3+ (NEGATIVE); LEUKOCYTE ESTERASE URINE NEGATIVE (NEGATIVE); NITRITE URINE NEGATIVE (NEGATIVE); OCCULT BLOOD URINE TRACE (NEGATIVE); PROTEIN URINE NEGATIVE (NEGATIVE); SPECIFIC GRAVITY URINE 1.025 (1.005-1.030); UROBILINOGEN URINE 0.2 E.U./dL (0.2-1.0)
[2021-05-21 17:15] LABS: *AMPHETAMINES SCREEN URINE NEGATIVE (NEGATIVE); METHADONE URINE SCREEN NEGATIVE (NEGATIVE); OPIATES URINE SCREEN NEGATIVE (NEGATIVE); PHENCYCLIDINE URINE SCREEN NEGATIVE (NEGATIVE)
[2021-05-21 17:17] LABS: *BARBITURATES SCREEN URINE NEGATIVE (NEGATIVE); *BENZODIAZEPINES SCREEN URINE NEGATIVE (NEGATIVE); *COCAINE SCREEN URINE NEGATIVE (NEGATIVE)
[2021-05-21 17:20] LABS: CANNABINOID URINE SCREEN PRESUMTIVE POSITIVE (NEGATIVE)
[2021-05-21 20:21] LABS: BG BASE EXCESS -12.2 mmol/L (-2.0-2.0); BG CARBOXYHEMOGLOBIN 0.5 % (0.5-1.5); BG DEOXYHEMOGLOBIN 3.3 % (0.0-5.0); BG FRACTION INSPIRED OXYGEN 21; BG HCO3 ACT 13.4 mmol/L (22.0-26.0); BG METHEMOGLOBIN 0.3 % (0.0-1.5); BG OXYGEN SATURATION 96.7 % (92.0-98.5); BG OXYHEMOGLOBIN 95.9 % (94.0-97.0); BG PCO2 30.1 mmHg (35.0-45.0); BG PH 7.267 (7.350-7.450); BG PO2 98.2 mmHg (75.0-100.0); BG SAMPLE SITE LEFT RADIAL; BG TOTAL HEMOGLOBIN 12.6 g/dL (12.0-18.0); BG VENT MODE ROOM AIR
[2021-05-21] MEDS ORDERED: INSULIN REGULAR (DRIP) 100 UNITS in SODIUM CHLORIDE 0.9% 100 ML IV ONE (20:30)
[2021-05-21] MEDS ORDERED: INSULIN REGULAR (DRIP) 100 UNITS in SODIUM CHLORIDE 0.9% 100 ML IV SCH (20:45)
[2021-05-21 23:30] LABS: CHLORIDE 112 mEq/L (98-107)
[2021-05-22] MEDS ORDERED: DIPHENHYDRAMINE 50MG/ML VIAL IV PRN (01:00)
[2021-05-22] MEDS ORDERED: DEXTROSE 10% WATER 500 ML IV ONE (01:00)
[2021-05-22] MEDS ORDERED: LEVETIRACETAM 500 MG in SODIUM CHLORIDE 0.9% 100 ML IV SCH (01:00)
[2021-05-22] MEDS ORDERED: ONDANSETRON HCL 4MG/2ML INJ IV PRN (01:00)
[2021-05-22] MEDS ORDERED: POTASSIUM PHOS,M-BASIC-D-BASIC 20 MMOL in DEXT 5% WATER 250 ML IV SCH (02:00)
[2021-05-22 02:40] LABS: CHLORIDE 112 mEq/L (98-107)
[2021-05-22] MEDS: LEVETIRACETAM 500MG PREMIX 100 ML IV SCH ×2 (02:58→10:17)
[2021-05-22] MEDS: SODIUM CHLORIDE 0.9% 1,000 ML IV SCH ×2 (02:58→10:17)
[2021-05-22] MEDS ORDERED: INSULIN REGULAR (DRIP) 100 UNITS in SODIUM CHLORIDE 0.9% 99 ML IV SCH (04:00)
[2021-05-22 04:37] LABS: CHLORIDE 119 mEq/L (98-107)
[2021-05-22 11:39] LABS: CHLORIDE 110 mEq/L (98-107)
[2021-05-22] MEDS: DEXT 5%/0.45% NACL KCL 20MEQ/L 1,000 ML IV SCH ×2 (12:57→22:42)
[2021-05-22] MEDS: KETOROLAC 30MG/ML VIAL IV PRN (13:15)
[2021-05-22] MEDS ORDERED: CEFTRIAXONE 1 G PREMIX 50 ML IV SCH (16:30)
[2021-05-22 16:45] LABS: CHLORIDE 107 mEq/L (98-107)
[2021-05-22] MEDS ORDERED: CEFTRIAXONE SODIUM 1 G/VIAL ONE (18:32)
[2021-05-22] MEDS: CEFTRIAXONE 1,000 MG in DEXTROSE 5% WATER 50 ML IV SCH (18:35)
[2021-05-22] MEDS: BLOOD SUGAR DIAGNOSTIC STRIP TEST SCH ×4 (20:00→23:00)
[2021-05-22] MEDS: LEVETIRACETAM 500MG TABLET PO SCH (21:41)
[2021-05-23] MEDS: KETOROLAC 30MG/ML VIAL IV PRN ×2 (01:23→07:12)
[2021-05-23] MEDS: BLOOD SUGAR DIAGNOSTIC STRIP TEST SCH ×6 (01:36→15:00)
[2021-05-23] MEDS ORDERED: DEXTROSE 50% WATER 50ML SYRINGE IV PRN ×2 (03:00→12:45)
[2021-05-23] MEDS: INSULIN LISPRO (MEDIUM DOSE) 100 UNITS/ML SUBCUT SCH ×3 (03:11→11:00)
[2021-05-23] MEDS: SODIUM CHLORIDE 0.9% 1,000 ML IV SCH ×2 (03:17→12:39)
[2021-05-23 06:58] VITALS: BP 121/90
[2021-05-23 08:00] VITALS: BP 130/81
[2021-05-23 08:30] VITALS: BP 130/81
[2021-05-23] MEDS: LEVETIRACETAM 500MG TABLET PO SCH (08:45)
[2021-05-23 11:00] LABS: BASOPHILS % 0.3 % (0.0-2.0); HEMATOCRIT. 36.1 % (36.0-48.0); LYMPHOCYTES % 10.7 % (20.0-50.0); MEAN CORPUSCULAR HEMOGLOBIN 32.9 pg (28.0-32.0); MEAN PLATELET VOLUME 10.1 fl (7.4-10.4); MONOCYTES % 4.9 % (2.0-8.0); NEUTROPHILS % 84.1 % (40.0-76.0); PLATELET 203 x1000/uL (130-400); RED BLOOD CELL COUNT 3.65 mill/uL (4.2-5.4); RED CELL DISTRIBUTION WIDTH 12.9 % (11.6-14.6)
[2021-05-23 11:49] LABS: CHLORIDE 107 mEq/L (98-107)
[2021-05-23 11:57] LABS: PHOSPHORUS 1.2 mg/dL (2.5-4.9)
[2021-05-23 12:00] VITALS: BP 121/74
[2021-05-23 16:00] VITALS: BP 114/67
[2021-05-23] MEDS ORDERED: POTASSIUM-SODIUM PHOSPHATE POWDER PACKET PO NR (16:15)
[2021-05-23] MEDS ORDERED: ACETAMINOPHEN 325MG TABLET PO PRN (16:30)
[2021-05-23] MEDS ORDERED: MAGNESIUM GLUCONATE 500MG TABLET PO NR (17:00)
[2021-05-23] MEDS ORDERED: BLOOD SUGAR DIAGNOSTIC STRIP TEST SCH (17:10)
[2021-05-23] MEDS ORDERED: INSULIN LISPRO 100 UNITS/ML SUBCUT SCH (17:40)
[2021-05-23] MEDS: CEFTRIAXONE 1,000 MG in DEXTROSE 5% WATER 50 ML IV SCH (18:00)
== END 2021-05-23 19:45 | disposition home or self-care (01) | DRG 100 ==
LOC: ER 12:06 → MICUSO 21:16 → 8WST 05-23 04:18
PROVIDERS: ADMIT Internal Medicine; ATTEND Internal Medicine
DX: G40.909 Epilepsy, unspecified, not intractable, without status epilepticus (principal); E11.10 Type 2 diabetes mellitus with ketoacidosis without coma; R65.10 Systemic inflammatory response syndrome (SIRS) of non-infectious origin without acute organ dysfunction; E83.39 Other disorders of phosphorus metabolism; Z96.41 Presence of insulin pump (external) (internal); E83.42 Hypomagnesemia; I10 Essential (primary) hypertension; Z20.822 Contact with and (suspected) exposure to COVID-19; M79.89 Other specified soft tissue disorders; Z79.4 Long term (current) use of insulin; Z86.73 Personal history of transient ischemic attack (TIA), and cerebral infarction without residual deficits; Z79.899 Other long term (current) drug therapy
CPT/HCPCS: 36415; 36600; 71045; 80048; 80053; 80305; 81003; 82010; 82375; 82805; 82962; 83605; 83735; 84100; 84484; 84703; 85025; 87426; 93005; 99285; J0696; J1815; J1885; J1953; J2060; J3490; J7030; J7050; J7060

== ENCOUNTER 2021-07-24 10:03 | Inpatient (IN) | payer OTHER ==
[~2021-07-24] VITALS: Ht 165.1 cm; Wt 54.4 kg
[2021-07-24] MEDS ORDERED: LACTATED RINGERS 2,000 ML IV STA (11:52)
[2021-07-24 12:16] LABS: HEMATOCRIT. 41.9 % (36.0-48.0); HEMOGLOBIN. 12.7 g/dL (12.0-16.0); MEAN CORPUSCULAR HEMOGLOBIN 32.7 pg (28.0-32.0); MEAN CORPUSCULAR VOLUME 107.5 fL (81.0-99.0); MEAN PLATELET VOLUME 10.2 fl (7.4-10.4); PLATELET 197 x1000/uL (130-400); RED CELL DISTRIBUTION WIDTH 14.6 % (11.6-14.6)
[2021-07-24 12:31] LABS: BETA HYDROXYBUTYRATE 6.4 mMol/L (0.0-0.3)
[2021-07-24] MEDS ORDERED: INSULIN REGULAR (DRIP) 100 UNITS in SODIUM CHLORIDE 0.9% 100 ML IV NR (13:12)
[2021-07-24 13:17] LABS: HCG SCREEN NEGATIVE
[2021-07-24 13:18] LABS: PLATELET ESTIMATE NORMAL
[2021-07-24] MEDS ORDERED: PIPERACILLIN/TAZ 3.375G PREMIX 50 ML IV ONE (14:15)
[2021-07-24] MEDS ORDERED: DEXAMETHASONE 4MG/ML 1ML VIAL IV ONE (14:15)
[2021-07-24 15:10] LABS: PHOSPHORUS 4.5 mg/dL (2.5-4.9)
[2021-07-24] MEDS ORDERED: LEVETIRACETAM 1,000 MG in SODIUM CHLORIDE 0.9% 100 ML IV SCH (16:00)
[2021-07-24] MEDS ORDERED: LEVETIRACETAM 1000MG PREMIX 100 ML IV SCH (17:00)
[2021-07-24 17:07] LABS: PHOSPHORUS 3.9 mg/dL (2.5-4.9)
[2021-07-24] MEDS ORDERED: DIPHENHYDRAMINE 50MG/ML VIAL IV PRN (20:30)
[2021-07-24] MEDS ORDERED: ONDANSETRON HCL 4MG/2ML INJ IV PRN (20:30)
[2021-07-24] MEDS ORDERED: LORAZEPAM 2MG/ML CPJ IV PRN (20:30)
[2021-07-24] MEDS ORDERED: ACETAMINOPHEN 325MG TABLET PO PRN ×2 (20:30)
[2021-07-24] MEDS ORDERED: CLONIDINE 0.1MG TABLET PO PRN (20:30)
[2021-07-24] MEDS ORDERED: DEXT 5%/0.45% NACL 1000ML 1,000 ML IV SCH (20:30)
[2021-07-24] MEDS ORDERED: INSULIN REGULAR (DRIP) 100 UNITS in SODIUM CHLORIDE 0.9% 99 ML IV ONE (20:30)
[2021-07-24] MEDS: FAMOTIDINE 20MG/2ML VIAL IV SCH (21:00)
[2021-07-24] MEDS ORDERED: DEXTROSE 50% WATER 50ML SYRINGE IV ONE (21:30)
[2021-07-24] MEDS ORDERED: DEXTROSE 50% WATER 50ML SYRINGE IV PRN (21:45)
[2021-07-24 21:57] LABS: CLARITY URINE CLEAR (CLEAR); COLOR URINE YELLOW (YELLOW); KETONES URINE 3+ (NEGATIVE); LEUKOCYTE ESTERASE URINE NEGATIVE (NEGATIVE); NITRITE URINE NEGATIVE (NEGATIVE); OCCULT BLOOD URINE 1+ (NEGATIVE); PROTEIN URINE NEGATIVE (NEGATIVE); SPECIFIC GRAVITY URINE 1.018 (1.005-1.030); UROBILINOGEN URINE 0.2 E.U./dL (0.2-1.0)
[2021-07-24] MEDS ORDERED: LEVETIRACETAM 500 MG in SODIUM CHLORIDE 0.9% 100 ML IV SCH (22:00)
[2021-07-24] MEDS ORDERED: BLOOD SUGAR DIAGNOSTIC STRIP TEST SCH (22:00)
[2021-07-24] MEDS ORDERED: INSULIN REGULAR (DRIP) 100 UNITS in SODIUM CHLORIDE 0.9% 99 ML IV NR (22:00)
[2021-07-24] MEDS: SODIUM CHLORIDE 0.9% 1,000 ML IV SCH (22:15)
[2021-07-24] MEDS ORDERED: INSULIN GLARGINE UD 100 UNITS/ML SYR SUBCUT SCH (23:00)
[2021-07-25] MEDS: BLOOD SUGAR DIAGNOSTIC STRIP TEST SCH ×6 (00:34→21:00)
[2021-07-25] MEDS ORDERED: LEVETIRACETAM 1000MG PREMIX 100 ML IV SCH (02:00)
[2021-07-25] MEDS: LEVETIRACETAM 500MG PREMIX 100 ML IV SCH ×2 (02:11→11:25)
[2021-07-25] MEDS ORDERED: INSULIN REGULAR (HUMULIN R) 300UNITS/3ML VIAL IV SCH (06:15)
[2021-07-25] MEDS: INSULIN LISPRO 100 UNITS/ML SUBCUT SCH ×4 (08:20→21:00)
[2021-07-25] MEDS: FAMOTIDINE 20MG/2ML VIAL IV SCH ×2 (11:25→21:05)
[2021-07-25] MEDS ORDERED: INSULIN GLARGINE UD 100 UNITS/ML SYR SUBCUT ONE (12:00)
[2021-07-25 16:24] LABS: HEMATOCRIT. 39.4 % (36.0-48.0); HEMOGLOBIN. 12.7 g/dL (12.0-16.0); MEAN CORPUSCULAR HEMOGLOBIN 32.5 pg (28.0-32.0); MEAN CORPUSCULAR VOLUME 100.5 fL (81.0-99.0); MEAN PLATELET VOLUME 10.7 fl (7.4-10.4); PLATELET 242 x1000/uL (130-400); RED BLOOD CELL COUNT 3.92 mill/uL (4.2-5.4); RED CELL DISTRIBUTION WIDTH 14.4 % (11.6-14.6)
[2021-07-25 16:30] LABS: CHLORIDE 105 mEq/L (98-107)
[2021-07-25 16:37] LABS: PHOSPHORUS 2.7 mg/dL (2.5-4.9)
[2021-07-25 17:05] LABS: PLATELET ESTIMATE NORMAL
[2021-07-25 17:33] VITALS: BP 115/88
[2021-07-25 18:00] VITALS: BP 112/76
[2021-07-25 20:00] VITALS: BP 126/73
[2021-07-25] MEDS: LEVETIRACETAM 500MG/5ML CUP PO SCH (21:05)
[2021-07-25] MEDS: SODIUM CHLORIDE 0.9% 1,000 ML IV SCH (21:22)
[2021-07-25 21:29] LABS: CHLORIDE 114 mEq/L (98-107)
[2021-07-25 22:00] VITALS: BP 121/73
[2021-07-25] MEDS ORDERED: INSULIN GLARGINE UD 100 UNITS/ML SYR SUBCUT SCH (22:00)
[2021-07-26] VITALS (7 sets, daily range): BP systolic 115–145; BP diastolic 66–96
[2021-07-26] MEDS: DEXTROSE 50% WATER 50ML SYRINGE IV PRN ×3 (00:28→13:18)
[2021-07-26] MEDS: BLOOD SUGAR DIAGNOSTIC STRIP TEST SCH ×3 (00:29→08:00)
[2021-07-26] MEDS: SODIUM CHLORIDE 0.9% 1,000 ML IV SCH (05:54)
[2021-07-26 07:20] LABS: BASOPHILS % 0.1 % (0.0-2.0); HEMATOCRIT. 35.2 % (36.0-48.0); HEMOGLOBIN. 11.5 g/dL (12.0-16.0); LYMPHOCYTES % 9.5 % (20.0-50.0); MEAN CORPUSCULAR HEMOGLOBIN 32.2 pg (28.0-32.0); MEAN CORPUSCULAR VOLUME 98.5 fL (81.0-99.0); MEAN PLATELET VOLUME 10.4 fl (7.4-10.4); MONOCYTES % 5.8 % (2.0-8.0); NEUTROPHILS % 84.6 % (40.0-76.0); PLATELET 198 x1000/uL (130-400); RED BLOOD CELL COUNT 3.57 mill/uL (4.2-5.4); RED CELL DISTRIBUTION WIDTH 13.5 % (11.6-14.6)
[2021-07-26 07:45] LABS: CHLORIDE 107 mEq/L (98-107)
[2021-07-26] MEDS: INSULIN LISPRO 100 UNITS/ML SUBCUT SCH (08:00)
[2021-07-26 08:04] LABS: PHOSPHORUS 1.8 mg/dL (2.5-4.9)
[2021-07-26] MEDS: LEVETIRACETAM 500MG/5ML CUP PO SCH (09:31)
[2021-07-26] MEDS: FAMOTIDINE 20MG/2ML VIAL IV SCH (09:31)
[2021-07-26] MEDS ORDERED: POTASSIUM PHOS,M-BASIC-D-BASIC 20 MMOL in DEXT 5% WATER 243.3333 ML IV SCH (13:00)
[2021-07-26] MEDS ORDERED: DEXT 5%/0.45% NACL 1000ML 500 ML IV ONE (14:00)
[2021-07-26] MEDS ORDERED: ENOXAPARIN 40MG/0.4ML SYR SUBCUT SCH (21:00)
== END 2021-07-26 18:34 | disposition left against medical advice (07) | DRG 637 ==
LOC: ER 10:03 → MICUSO 16:34 → EDBEDREQSVC 16:35 → EDBEDREQTM 16:35 → EDBEDREQ 16:35 → CANRESERV 07-25 00:11 → ENRESERV 07-25 00:11 → 5EST 07-25 18:02
PROVIDERS: ADMIT Internal Medicine; ATTEND Internal Medicine
DX: E11.10 Type 2 diabetes mellitus with ketoacidosis without coma (principal); G93.41 Metabolic encephalopathy; N17.9 Acute kidney failure, unspecified; E86.0 Dehydration; Z20.822 Contact with and (suspected) exposure to COVID-19; I10 Essential (primary) hypertension; G40.909 Epilepsy, unspecified, not intractable, without status epilepticus; E11.649 Type 2 diabetes mellitus with hypoglycemia without coma; Z79.4 Long term (current) use of insulin; Z91.19 Patient's noncompliance with other medical treatment and regimen; Z79.899 Other long term (current) drug therapy
CPT/HCPCS: 36415; 80048; 80053; 80076; 81003; 82010; 82962; 83605; 83735; 84100; 84703; 85025; 87426; 99291; C9803; J1815; J1953; J3490; J7050; J7060; J7120; U0003; U0005

== ENCOUNTER 2022-04-02 09:18 | Emergency (ER) | payer OTHER ==
[~2022-04-02] VITALS: Ht 167.6 cm; Wt 55.0 kg
[2022-04-02 10:36] LABS: BG BASE EXCESS -2.6 mmol/L (-2.0-2.0); BG CARBOXYHEMOGLOBIN 5.3 % (0.5-1.5); BG DEOXYHEMOGLOBIN 2.4 % (0.0-5.0); BG FRACTION INSPIRED OXYGEN 21.02; BG HCO3 ACT 22.1 mmol/L (22.0-26.0); BG METHEMOGLOBIN 0.3 % (0.0-1.5); BG OXYGEN SATURATION 97.5 % (92.0-98.5); BG PCO2 37.8 mmHg (35.0-45.0); BG PH 7.384 (7.350-7.450); BG PO2 100.1 mmHg (75.0-100.0); BG SAMPLE SITE RIGHT RADIAL; BG TOTAL HEMOGLOBIN 11.6 g/dL (12.0-18.0); BG VENT MODE ROOM AIR
[2022-04-02] MEDS ORDERED: KETOROLAC 30MG/ML VIAL IV ONE (11:00)
[2022-04-02] MEDS ORDERED: SODIUM CHLORIDE 0.9% 1,000 ML IV ONE (11:00)
[2022-04-02 11:05] LABS: HEMATOCRIT. 33.8 % (36.0-48.0); HEMOGLOBIN. 11.3 g/dL (12.0-16.0); MEAN CORPUSCULAR HEMOGLOBIN 32.3 pg (28.0-32.0); MEAN CORPUSCULAR VOLUME 96.8 fL (81.0-99.0); MEAN PLATELET VOLUME 10.6 fl (7.4-10.4); PLATELET 272 x1000/uL (130-400); RED BLOOD CELL COUNT 3.49 mill/uL (4.2-5.4); RED CELL DISTRIBUTION WIDTH 14.5 % (11.6-14.6)
[2022-04-02 11:35] LABS: PLATELET ESTIMATE NORMAL
[2022-04-02 13:08] LABS: CHLORIDE 110 mEq/L (98-107)
[2022-04-02 13:19] LABS: BETA HYDROXYBUTYRATE 0.1 mMol/L (0.0-0.3)
[2022-04-02 14:44] VITALS: BP 126/74
== END 2022-04-02 14:47 | disposition home or self-care (01) ==
LOC: ER 09:51
DX: E11.65 Type 2 diabetes mellitus with hyperglycemia (principal); I10 Essential (primary) hypertension; Z20.822 Contact with and (suspected) exposure to COVID-19; Z86.59 Personal history of other mental and behavioral disorders
CPT/HCPCS: 36415; 36600; 71045; 80053; 82010; 82375; 82805; 82962; 84484; 85025; 87426; 93005; 96361; 96374; 99285; C9803; J1885; J7030

== ENCOUNTER 2022-10-28 13:03 | Inpatient (IN) | payer OTHER ==
[~2022-10-28] VITALS: Ht 160 cm; Wt 63.5 kg
[2022-10-28] MEDS ORDERED: LEVETIRACETAM 1000MG PREMIX 100 ML IV ONE (14:15)
[2022-10-28] MEDS ORDERED: LORAZEPAM 2MG/ML CPJ IV ONE ×3 (14:15→16:45)
[2022-10-28] MEDS ORDERED: SODIUM CHLORIDE 0.9% 1,000 ML IV ONE (14:30)
[2022-10-28 14:55] LABS: BG BASE EXCESS -29.2 mmol/L (-2.0-2.0); BG CARBOXYHEMOGLOBIN 0.3 % (0.5-1.5); BG DEOXYHEMOGLOBIN 0.3 % (0.0-5.0); BG FRACTION INSPIRED OXYGEN 100; BG HCO3 ACT 2.2 mmol/L (22.0-26.0); BG METHEMOGLOBIN 0.6 % (0.0-1.5); BG OXYGEN SATURATION 99.7 % (92.0-98.5); BG OXYHEMOGLOBIN 98.8 % (94.0-97.0); BG PCO2 11.8 mmHg (35.0-45.0); BG PH 6.893 (7.350-7.450); BG PO2 477.7 mmHg (75.0-100.0); BG SAMPLE SITE RIGHT RADIAL; BG TOTAL HEMOGLOBIN 11.6 g/dL (12.0-18.0); BG VENT MODE MASK - NRB
[2022-10-28 14:57] LABS: HEMOGLOBIN. 10.9 g/dL (12.0-16.0); MEAN CORPUSCULAR HEMOGLOBIN 32.4 pg (28.0-32.0); MEAN CORPUSCULAR VOLUME 121.7 fL (81.0-99.0); MEAN PLATELET VOLUME 10.6 fl (7.4-10.4); PLATELET 293 x1000/uL (130-400); RED BLOOD CELL COUNT 3.37 mill/uL (4.2-5.4); RED CELL DISTRIBUTION WIDTH 15.4 % (11.6-14.6)
[2022-10-28 15:15] LABS: CHLORIDE 92 mEq/L (98-107)
[2022-10-28] MEDS ORDERED: VANCOMYCIN 1G PREMIX 200 ML IV ONE (15:15)
[2022-10-28] MEDS ORDERED: SODIUM CHLORIDE 0.9% 1000ML BAG (SEPSIS BOLUS) IV ONE (15:15)
[2022-10-28] MEDS ORDERED: CEFTRIAXONE 1 G PREMIX 50 ML IV ONE (15:15)
[2022-10-28] MEDS ORDERED: INSULIN REGULAR (DRIP) 100 UNITS in SODIUM CHLORIDE 0.9% 99 ML IV SCH (15:15)
[2022-10-28 15:25] LABS: ETHANOL BLOOD < 10 mg/dL
[2022-10-28 15:30] LABS: BETA HYDROXYBUTYRATE 9.7 mMol/L (0.0-0.3)
[2022-10-28] MEDS ORDERED: NOREPINEPHRINE 8MG/250ML PMX 250 ML IV ONE (15:30)
[2022-10-28] MEDS ORDERED: SODIUM BICARBONATE 8.4% 1 MEQ/ML 50ML SYR IV ONE ×3 (15:30→16:45)
[2022-10-28 15:31] LABS: HCG SCREEN NEGATIVE
[2022-10-28] MEDS ORDERED: NOREPINEPHRINE 8 MG in DEXTROSE 5% WATER 250 ML IV PRN (15:45)
[2022-10-28 15:50] LABS: PLATELET ESTIMATE NORMAL
[2022-10-28] MEDS ORDERED: INSULIN REGULAR 100U/100ML PMX 100 ML IV NR (16:30)
[2022-10-28] MEDS ORDERED: INSULIN REGULAR 100U/100ML PMX 100 ML IV SCH ×2 (16:45→23:00)
[2022-10-28] MEDS ORDERED: SODIUM CHLORIDE 0.9% 1000ML BAG (SEPSIS BOLUS) IV NR (16:45)
[2022-10-28] MEDS ORDERED: CLONIDINE 0.1MG TABLET PO PRN (16:45)
[2022-10-28] MEDS ORDERED: KETOROLAC 15MG/ML VIAL IV PRN (16:45)
[2022-10-28] MEDS ORDERED: MAGNESIUM/ALUMINUM HYDROXIDE/SIMETHICONE 30ML UDC PO PRN (16:45)
[2022-10-28] MEDS ORDERED: DOCUSATE SODIUM 100MG CAPSULE PO PRN (16:45)
[2022-10-28] MEDS: SODIUM CHLORIDE 0.9% 1,000 ML IV SCH (16:45)
[2022-10-28] MEDS ORDERED: LORAZEPAM 2MG/ML CPJ IV NR (16:45)
[2022-10-28] MEDS ORDERED: GUAIFENESIN 200MG/10ML SUGAR FREE UDC PO PRN (16:45)
[2022-10-28] MEDS ORDERED: ACETAMINOPHEN 325MG TABLET PO PRN (16:45)
[2022-10-28] MEDS ORDERED: IPRATROPIUM/ALBUTEROL 0.5-3(2.5)MG/3ML NEB NEB PRN (16:45)
[2022-10-28] MEDS ORDERED: NITROGLYCERIN 0.4MG TABLET SL SL PRN (17:00)
[2022-10-28] MEDS: BLOOD SUGAR DIAGNOSTIC STRIP TEST SCH ×7 (17:33→23:20)
[2022-10-28] MEDS: PIPERACILLIN/TAZ 3.375G PREMIX 50 ML IV SCH (17:55)
[2022-10-28 18:03] LABS: FOLIC ACID (FOLATE) SERUM >20 ng/mL ng/mL (>5.38); VITAMIN B12 SERUM 575 pg/mL (211-911)
[2022-10-28] MEDS ORDERED: DILTIAZEM HCL 5MG/ML 5ML VIAL IV ONE (18:30)
[2022-10-28] MEDS ORDERED: AMIODARONE HCL 50MG/ML 3ML VIAL IV ONE (18:45)
[2022-10-28] MEDS ORDERED: CALCIUM CHLORIDE 1GM/10ML SYR IV ONE (19:00)
[2022-10-28] MEDS ORDERED: FUROSEMIDE 40MG/4ML VIAL IVP NR (19:15)
[2022-10-28 19:16] LABS: T4 FREE 1.1 ng/dL (0.76-1.46)
[2022-10-28] MEDS: ENOXAPARIN 30MG/0.3ML SYR SUBCUT SCH (19:21)
[2022-10-28 19:26] LABS: PHOSPHORUS 10.9 mg/dL (2.5-4.9)
[2022-10-28] MEDS ORDERED: PROPOFOL 10MG/ML 100ML 100 ML IV PRN (20:30)
[2022-10-28] MEDS: FAMOTIDINE 20MG TABLET PO SCH (21:00)
[2022-10-28 21:42] LABS: CLARITY URINE CLEAR (CLEAR); COLOR URINE YELLOW (YELLOW); KETONES URINE 2+ (NEGATIVE); LEUKOCYTE ESTERASE URINE NEGATIVE (NEGATIVE); NITRITE URINE NEGATIVE (NEGATIVE); OCCULT BLOOD URINE 2+ (NEGATIVE); PROTEIN URINE NEGATIVE (NEGATIVE); SPECIFIC GRAVITY URINE 1.012 (1.005-1.030); UROBILINOGEN URINE 0.2 E.U./dL (0.2-1.0)
[2022-10-28 21:56] LABS: *AMPHETAMINES SCREEN URINE NEGATIVE (NEGATIVE); *BARBITURATES SCREEN URINE NEGATIVE (NEGATIVE); *BENZODIAZEPINES SCREEN URINE NEGATIVE (NEGATIVE); *COCAINE SCREEN URINE NEGATIVE (NEGATIVE); METHADONE URINE SCREEN NEGATIVE (NEGATIVE); OPIATES URINE SCREEN NEGATIVE (NEGATIVE); PHENCYCLIDINE URINE SCREEN NEGATIVE (NEGATIVE)
[2022-10-28 21:59] LABS: CANNABINOID URINE SCREEN PRESUMTIVE POSITIVE (NEGATIVE)
[2022-10-28 23:10] LABS: BG BASE EXCESS -10.5 mmol/L (-2.0-2.0); BG CARBOXYHEMOGLOBIN 0.3 % (0.5-1.5); BG DEOXYHEMOGLOBIN 1.2 % (0.0-5.0); BG FRACTION INSPIRED OXYGEN 100; BG METHEMOGLOBIN 0.5 % (0.0-1.5); BG OXYGEN SATURATION 98.8 % (92.0-98.5); BG PCO2 27.3 mmHg (35.0-45.0); BG PH 7.328 (7.350-7.450); BG PO2 209.5 mmHg (75.0-100.0); BG SAMPLE SITE LEFT RADIAL; BG TOTAL HEMOGLOBIN 11.5 g/dL (12.0-18.0); BG VENT MODE VENT - AC
[2022-10-29] VITALS (51 sets, daily range): BP systolic 111–137; BP diastolic 63–94
[2022-10-29] MEDS: SODIUM CHLORIDE 0.9% 1,000 ML IV SCH (00:09)
[2022-10-29] MEDS: BLOOD SUGAR DIAGNOSTIC STRIP TEST SCH ×23 (00:09→23:30)
[2022-10-29] MEDS: PIPERACILLIN/TAZ 3.375G PREMIX 50 ML IV SCH (00:24)
[2022-10-29] MEDS: DEXTROSE 50% WATER 50ML SYRINGE IV PRN ×2 (02:36→09:28)
[2022-10-29] MEDS: DEXT 5%/0.45% NACL KCL 20MEQ/L 1,000 ML IV SCH ×4 (03:48→23:20)
[2022-10-29] MEDS ORDERED: LORAZEPAM 2MG/ML CPJ IV PRN (04:15)
[2022-10-29 05:50] LABS: HEMATOCRIT. 32.7 % (36.0-48.0); HEMOGLOBIN. 10.8 g/dL (12.0-16.0); MEAN CORPUSCULAR HEMOGLOBIN 32.3 pg (28.0-32.0); MEAN CORPUSCULAR VOLUME 98.3 fL (81.0-99.0); MEAN PLATELET VOLUME 9.9 fl (7.4-10.4); PLATELET 221 x1000/uL (130-400); RED BLOOD CELL COUNT 3.33 mill/uL (4.2-5.4); RED CELL DISTRIBUTION WIDTH 13.3 % (11.6-14.6)
[2022-10-29] MEDS: PIPERACILLIN/TAZOBACTAM 3.375G in DEXT 5% WATER 50ML IV SCH ×3 (06:57→21:22)
[2022-10-29 07:14] LABS: CHLORIDE 117 mEq/L (98-107)
[2022-10-29 07:36] LABS: PHOSPHORUS 2.5 mg/dL (2.5-4.9)
[2022-10-29 09:01] LABS: BG BASE EXCESS -6.7 mmol/L (-2.0-2.0); BG DEOXYHEMOGLOBIN 0.7 % (0.0-5.0); BG FRACTION INSPIRED OXYGEN 70; BG HCO3 ACT 17.1 mmol/L (22.0-26.0); BG METHEMOGLOBIN 0.3 % (0.0-1.5); BG OXYGEN SATURATION 99.3 % (92.0-98.5); BG PCO2 28.7 mmHg (35.0-45.0); BG PH 7.394 (7.350-7.450); BG PO2 314.4 mmHg (75.0-100.0); BG SAMPLE SITE RIGHT RADIAL; BG TOTAL HEMOGLOBIN 10.3 g/dL (12.0-18.0); BG VENT MODE VENT - AC
[2022-10-29] MEDS: LEVETIRACETAM 500MG PREMIX 100 ML IV SCH ×2 (09:37→21:22)
[2022-10-29] MEDS ORDERED: INSULIN GLARGINE 100 UNITS/ML SUBCUT SCH (10:00)
[2022-10-29] MEDS ORDERED: DEXTROSE 50% WATER 50ML SYRINGE IV PRN (10:00)
[2022-10-29] MEDS ORDERED: SODIUM CHLORIDE 0.45% 1,000 ML IV SCH (10:00)
[2022-10-29] MEDS ORDERED: INSULIN REGULAR (DRIP) 100 UNITS in SODIUM CHLORIDE 0.9% 99 ML IV PRN (10:30)
[2022-10-29] MEDS ORDERED: INSULIN REGULAR 100U/100ML PMX 100 ML IV PRN (11:00)
[2022-10-29] MEDS ORDERED: VANCOMYCIN 750MG PREMIX 150 ML IV SCH ×2 (11:00→16:00)
[2022-10-29] MEDS ORDERED: INSULIN LISPRO 100 UNITS/ML SUBCUT SCH ×2 (12:50→13:20)
[2022-10-29] MEDS ORDERED: BLOOD SUGAR DIAGNOSTIC STRIP TEST SCH (12:50)
[2022-10-29] MEDS ORDERED: FENTANYL CITRATE/PF 2,500 MCG in SODIUM CHLORIDE 0.9% 200 ML IV PRN (13:00)
[2022-10-29] MEDS ORDERED: IPRATROPIUM BROMIDE (0.02%) 0.5MG/2.5ML NEB HHN PRN (13:00)
[2022-10-29 13:54] LABS: PLATELET ESTIMATE NORMAL
[2022-10-29] MEDS: ENOXAPARIN 30MG/0.3ML SYR SUBCUT SCH (17:24)
[2022-10-29] MEDS: IPRATROPIUM BROMIDE (0.02%) 0.5MG/2.5ML NEB HHN SCH (20:21)
[2022-10-29] MEDS: FAMOTIDINE 20MG TABLET PO SCH (21:22)
[2022-10-29] MEDS: PROPOFOL 10MG/ML 100ML 100 ML IV PRN (22:26)
[2022-10-30] VITALS (72 sets, daily range): BP systolic 103–150; BP diastolic 59–97
[2022-10-30] MEDS: BLOOD SUGAR DIAGNOSTIC STRIP TEST SCH ×14 (01:17→20:48)
[2022-10-30] MEDS: IPRATROPIUM BROMIDE (0.02%) 0.5MG/2.5ML NEB HHN SCH ×4 (01:39→20:17)
[2022-10-30] MEDS: DEXTROSE 50% WATER 50ML SYRINGE IV PRN ×2 (04:58→09:15)
[2022-10-30 05:35] LABS: CHLORIDE 122 mEq/L (98-107); HEMATOCRIT. 26.7 % (36.0-48.0); HEMOGLOBIN. 8.9 g/dL (12.0-16.0); MEAN CORPUSCULAR HEMOGLOBIN 32.6 pg (28.0-32.0); MEAN CORPUSCULAR VOLUME 97.5 fL (81.0-99.0); MEAN PLATELET VOLUME 9.6 fl (7.4-10.4); PLATELET 176 x1000/uL (130-400); RED BLOOD CELL COUNT 2.73 mill/uL (4.2-5.4); RED CELL DISTRIBUTION WIDTH 13.6 % (11.6-14.6)
[2022-10-30] MEDS: PROPOFOL 10MG/ML 100ML 100 ML IV PRN (05:38)
[2022-10-30 05:44] LABS: PHOSPHORUS 1.4 mg/dL (2.5-4.9)
[2022-10-30] MEDS: DEXT 5%/0.45% NACL KCL 20MEQ/L 1,000 ML IV SCH (06:06)
[2022-10-30] MEDS: PIPERACILLIN/TAZOBACTAM 3.375G in DEXT 5% WATER 50ML IV SCH ×3 (06:06→22:46)
[2022-10-30 07:46] LABS: PLATELET ESTIMATE NORMAL
[2022-10-30 08:54] LABS: BG BASE EXCESS -5.1 mmol/L (-2.0-2.0); BG CARBOXYHEMOGLOBIN 0.1 % (0.5-1.5); BG FRACTION INSPIRED OXYGEN 40; BG HCO3 ACT 18.1 mmol/L (22.0-26.0); BG METHEMOGLOBIN 0.1 % (0.0-1.5); BG OXYHEMOGLOBIN 98.8 % (94.0-97.0); BG PCO2 27.4 mmHg (35.0-45.0); BG PH 7.437 (7.350-7.450); BG PO2 207.8 mmHg (75.0-100.0); BG SAMPLE SITE RIGHT RADIAL; BG TOTAL HEMOGLOBIN 9.9 g/dL (12.0-18.0); BG VENT MODE VENT - AC
[2022-10-30] MEDS: LEVETIRACETAM 500MG PREMIX 100 ML IV SCH ×2 (09:15→20:48)
[2022-10-30] MEDS ORDERED: DEXTROSE 50% WATER 50ML SYRINGE IV PRN (10:45)
[2022-10-30] MEDS: INSULIN GLARGINE 100 UNITS/ML SUBCUT SCH (11:54)
[2022-10-30] MEDS: VANCOMYCIN 500MG PREMIX 100 ML IV SCH (11:55)
[2022-10-30] MEDS: INSULIN LISPRO 100 UNITS/ML SUBCUT SCH ×4 (13:05→21:00)
[2022-10-30 13:26] LABS: BG CARBOXYHEMOGLOBIN 0.3 % (0.5-1.5); BG DEOXYHEMOGLOBIN 2.2 % (0.0-5.0); BG FRACTION INSPIRED OXYGEN 30; BG HCO3 ACT 17.1 mmol/L (22.0-26.0); BG METHEMOGLOBIN 0.1 % (0.0-1.5); BG OXYGEN SATURATION 97.8 % (92.0-98.5); BG OXYHEMOGLOBIN 97.4 % (94.0-97.0); BG PCO2 29.7 mmHg (35.0-45.0); BG PH 7.379 (7.350-7.450); BG PO2 117.6 mmHg (75.0-100.0); BG SAMPLE SITE RIGHT BRACHIAL; BG TOTAL HEMOGLOBIN 9.6 g/dL (12.0-18.0); BG VENT MODE VENT - CPAP
[2022-10-30 15:06] LABS: TOTAL IRON BINDING CAPACITY 273 ug/dL (250-450)
[2022-10-30] MEDS ORDERED: SODIUM CHLORIDE 0.45% 1,000 ML IV ONE (15:45)
[2022-10-30] MEDS: ENOXAPARIN 30MG/0.3ML SYR SUBCUT SCH (17:29)
[2022-10-30] MEDS ORDERED: POTASSIUM PHOS,M-BASIC-D-BASIC 30 MMOL in SODIUM CHLORIDE 0.9% 500 ML IV NR (20:30)
[2022-10-30] MEDS: ACETAMINOPHEN 325MG TABLET PO PRN (20:46)
[2022-10-30] MEDS: FAMOTIDINE 20MG TABLET PO SCH (20:47)
[2022-10-30] MEDS: ONDANSETRON HCL 4MG/2ML INJ IV PRN (20:47)
[2022-10-31] VITALS (21 sets, daily range): BP systolic 107–144; BP diastolic 48–94
[2022-10-31] MEDS: IPRATROPIUM BROMIDE (0.02%) 0.5MG/2.5ML NEB HHN SCH ×4 (02:08→21:10)
[2022-10-31] MEDS: ONDANSETRON HCL 4MG/2ML INJ IV PRN (02:29)
[2022-10-31] MEDS: VANCOMYCIN 500MG PREMIX 100 ML IV SCH (02:29)
[2022-10-31] MEDS: ACETAMINOPHEN 325MG TABLET PO PRN (02:35)
[2022-10-31 05:34] LABS: BASOPHILS % 0.1 % (0.0-2.0); HEMATOCRIT. 24.9 % (36.0-48.0); HEMOGLOBIN. 8.4 g/dL (12.0-16.0); LYMPHOCYTES % 10.9 % (20.0-50.0); MEAN CORPUSCULAR HEMOGLOBIN 32.9 pg (28.0-32.0); MEAN CORPUSCULAR VOLUME 97.1 fL (81.0-99.0); MEAN PLATELET VOLUME 9.6 fl (7.4-10.4); MONOCYTES % 3.1 % (2.0-8.0); NEUTROPHILS % 85.9 % (40.0-76.0); PLATELET 176 x1000/uL (130-400); RED BLOOD CELL COUNT 2.57 mill/uL (4.2-5.4); RED CELL DISTRIBUTION WIDTH 13.5 % (11.6-14.6)
[2022-10-31 05:48] LABS: CHLORIDE 115 mEq/L (98-107)
[2022-10-31 05:55] LABS: PHOSPHORUS 3.1 mg/dL (2.5-4.9)
[2022-10-31] MEDS: PIPERACILLIN/TAZOBACTAM 3.375G in DEXT 5% WATER 50ML IV SCH ×3 (06:10→22:32)
[2022-10-31] MEDS: DEXTROSE 50% WATER 50ML SYRINGE IV PRN ×2 (07:25→22:52)
[2022-10-31] MEDS: INSULIN LISPRO 100 UNITS/ML SUBCUT SCH ×4 (08:20→21:00)
[2022-10-31] MEDS: BLOOD SUGAR DIAGNOSTIC STRIP TEST SCH ×4 (08:29→21:00)
[2022-10-31] MEDS: LEVETIRACETAM 500MG PREMIX 100 ML IV SCH ×2 (08:31→22:32)
[2022-10-31] MEDS: PIPERACILLIN/TAZ 3.375G PREMIX 50 ML IV SCH (08:46)
[2022-10-31] MEDS ORDERED: POTASSIUM CHLORIDE 20MEQ/PACKET PO NR (09:30)
[2022-10-31] MEDS ORDERED: MAGNESIUM 1 G PREMIX 100 ML IV NR (09:45)
[2022-10-31] MEDS: INSULIN GLARGINE 100 UNITS/ML SUBCUT SCH (11:42)
[2022-10-31] MEDS ORDERED: KEPPSOL PO (15:13)
[2022-10-31] MEDS: VANCOMYCIN 750MG PREMIX 150 ML IV SCH (15:25)
[2022-10-31] MEDS ORDERED: MAGNESIUM 2 G PREMIX 50 ML IV NR (16:00)
[2022-10-31] MEDS: ENOXAPARIN 30MG/0.3ML SYR SUBCUT SCH (18:32)
[2022-10-31] MEDS: DEXT 5%/0.9% NACL 1,000 ML IV SCH (18:45)
[2022-10-31] MEDS: FAMOTIDINE 20MG TABLET PO SCH (22:32)
[2022-11-01] VITALS: BP 115/74
[2022-11-01] MEDS: VANCOMYCIN 750MG PREMIX 150 ML IV SCH ×3 (00:18→20:30)
[2022-11-01 04:00] VITALS: BP 111/76
[2022-11-01] MEDS: PIPERACILLIN/TAZOBACTAM 3.375G in DEXT 5% WATER 50ML IV SCH ×3 (05:32→21:15)
[2022-11-01] MEDS: BLOOD SUGAR DIAGNOSTIC STRIP TEST SCH ×4 (06:29→20:29)
[2022-11-01] MEDS: INSULIN LISPRO 100 UNITS/ML SUBCUT SCH ×4 (06:30→20:29)
[2022-11-01 08:00] VITALS: BP 125/85
[2022-11-01] MEDS: DEXT 5%/0.9% NACL 1,000 ML IV SCH ×2 (08:42→20:40)
[2022-11-01] MEDS: IPRATROPIUM BROMIDE (0.02%) 0.5MG/2.5ML NEB HHN SCH ×4 (09:18→21:08)
[2022-11-01] MEDS: LEVETIRACETAM 500MG PREMIX 100 ML IV SCH ×2 (11:20→20:30)
[2022-11-01 12:00] VITALS: BP 123/64
[2022-11-01] MEDS: INSULIN GLARGINE 100 UNITS/ML SUBCUT SCH (12:14)
[2022-11-01 16:00] VITALS: BP 125/63
[2022-11-01] MEDS: DEXTROSE 50% WATER 50ML SYRINGE IV PRN (17:50)
[2022-11-01] MEDS: ENOXAPARIN 30MG/0.3ML SYR SUBCUT SCH (17:51)
[2022-11-01 20:00] VITALS: BP 113/74
[2022-11-01] MEDS: FAMOTIDINE 20MG TABLET PO SCH (20:30)
[2022-11-02] VITALS: BP 125/86
[2022-11-02 04:00] VITALS: BP 112/76
[2022-11-02] MEDS: PIPERACILLIN/TAZOBACTAM 3.375G in DEXT 5% WATER 50ML IV SCH ×2 (05:03→15:37)
[2022-11-02] MEDS: DEXTROSE 50% WATER 50ML SYRINGE IV PRN (06:12)
[2022-11-02 08:00] VITALS: BP 135/75
[2022-11-02] MEDS: INSULIN LISPRO 100 UNITS/ML SUBCUT SCH ×4 (08:10→20:05)
[2022-11-02] MEDS: BLOOD SUGAR DIAGNOSTIC STRIP TEST SCH ×4 (08:20→20:05)
[2022-11-02] MEDS: IPRATROPIUM BROMIDE (0.02%) 0.5MG/2.5ML NEB HHN SCH ×3 (08:55→14:40)
[2022-11-02] MEDS: VANCOMYCIN 750MG PREMIX 150 ML IV SCH (09:24)
[2022-11-02] MEDS: LEVETIRACETAM 500MG PREMIX 100 ML IV SCH ×2 (09:24→20:05)
[2022-11-02] MEDS ORDERED: INSULIN GLARGINE 100 UNITS/ML SUBCUT SCH ×2 (10:00)
[2022-11-02 12:00] VITALS: BP 128/79
[2022-11-02 16:00] VITALS: BP 125/87
[2022-11-02] MEDS: ENOXAPARIN 30MG/0.3ML SYR SUBCUT SCH (18:06)
[2022-11-02 19:50] VITALS: BP 116/73
[2022-11-02] MEDS: FAMOTIDINE 20MG TABLET PO SCH (20:05)
== END 2022-11-02 21:41 | disposition short-term general hospital (02) | DRG 871 ==
LOC: ER 13:03 → MICUSO 16:25 → EDBEDREQ 16:27 → EDBEDREQTM 16:27 → EDBEDREQSVC 16:27 → EDBEDREQ 16:31 → CVICU 10-29 03:12 → 7WST 10-31 11:51
PROVIDERS: ADMIT Internal Medicine; ATTEND Internal Medicine
PROC: 0BH17EZ Insertion of Endotracheal Airway into Trachea, Via Natural or Artificial Opening (ICD-10-PCS; principal; 2022-10-28)
PROC: 5A1945Z Respiratory Ventilation, 24-96 Consecutive Hours (ICD-10-PCS; 2022-10-28)
DX: A41.9 Sepsis, unspecified organism (principal); E11.10 Type 2 diabetes mellitus with ketoacidosis without coma; G92.8 Other toxic encephalopathy; J96.01 Acute respiratory failure with hypoxia; N17.0 Acute kidney failure with tubular necrosis; J69.0 Pneumonitis due to inhalation of food and vomit; R65.21 Severe sepsis with septic shock; I50.30 Unspecified diastolic (congestive) heart failure; E87.5 Hyperkalemia; Z96.41 Presence of insulin pump (external) (internal); I11.0 Hypertensive heart disease with heart failure; D64.9 Anemia, unspecified; G40.901 Epilepsy, unspecified, not intractable, with status epilepticus; E83.42 Hypomagnesemia; Z79.4 Long term (current) use of insulin; Z86.73 Personal history of transient ischemic attack (TIA), and cerebral infarction without residual deficits
CPT/HCPCS: 31500; 36415; 36600; 71045; 80048; 80053; 80061; 80202; 80305; 80320; 81003; 82010; 82375; 82607; 82746; 82805; 82962; 83036; 83540; 83550; 83605; 83735; 83880; 84100; 84145; 84439; 84443; 84478; 84484; 84703; 85025; 85044; 87070; 87426; 93005; 93306; 93970; 94002; 94003; 94640; 97116; 97161; 99291; C1893; J0696; J1650; J1815; J1885; J1940; J1953; J2060; J2405; J2543; J2704; J3010; J3370; J3475; J3490; J7030; J7040; J7042; J7050; J7060; A4315; G0480

== ENCOUNTER 2022-12-23 15:46 | Inpatient (IN) | payer OTHER ==
[~2022-12-23] VITALS: Ht 160 cm; Wt 55.0 kg
[~2022-12-23 15:46] MED LIST changes: -INSU100I28 SQ; +KEPPSOL PO
[2022-12-23] MEDS ORDERED: SODIUM CHLORIDE 0.9% 1,000 ML IV ONE (16:45)
[2022-12-23] MEDS ORDERED: LEVETIRACETAM 500MG PREMIX 100 ML IV ONE (16:45)
[2022-12-23 17:11] LABS: HEMATOCRIT. 33.6 % (36.0-48.0); HEMOGLOBIN. 11.2 g/dL (12.0-16.0); MEAN CORPUSCULAR HEMOGLOBIN 31.2 pg (28.0-32.0); MEAN CORPUSCULAR VOLUME 93.4 fL (81.0-99.0); MEAN PLATELET VOLUME 9.5 fl (7.4-10.4); PLATELET 186 x1000/uL (130-400); RED CELL DISTRIBUTION WIDTH 15.1 % (11.6-14.6)
[2022-12-23 17:22] LABS: CHLORIDE 109 mEq/L (98-107)
[2022-12-23 17:30] LABS: BETA HYDROXYBUTYRATE 0.7 mMol/L (0.0-0.3); ETHANOL BLOOD < 10 mg/dL
[2022-12-23] MEDS ORDERED: LEVETIRACETAM 500MG PREMIX 100 ML IV NR (19:00)
[2022-12-23 19:11] LABS: PLATELET ESTIMATE NORMAL
[2022-12-23 19:12] LABS: HCG SCREEN NEGATIVE
[2022-12-23] MEDS ORDERED: DEXTROSE 50% WATER 50ML SYRINGE IV STA (19:49)
[2022-12-23] MEDS ORDERED: NA PHOS,M-B/NA PHOS,DI-BA ENEMA 118ML PR PRN (20:30)
[2022-12-23] MEDS ORDERED: IPRATROPIUM/ALBUTEROL 0.5-3(2.5)MG/3ML NEB NEB PRN (20:30)
[2022-12-23] MEDS ORDERED: ACETAMINOPHEN 325MG TABLET PO PRN (20:30)
[2022-12-23] MEDS ORDERED: GUAIFENESIN 200MG/10ML SUGAR FREE UDC PO PRN (20:30)
[2022-12-23] MEDS ORDERED: LORAZEPAM 0.5MG TABLET PO PRN (20:30)
[2022-12-23] MEDS ORDERED: CLONIDINE 0.1MG TABLET PO PRN (20:30)
[2022-12-23] MEDS ORDERED: DOCUSATE SODIUM 100MG CAPSULE PO PRN (20:30)
[2022-12-23] MEDS ORDERED: ONDANSETRON HCL 4MG/2ML INJ IV PRN (20:30)
[2022-12-23] MEDS ORDERED: MAGNESIUM/ALUMINUM HYDROXIDE/SIMETHICONE 30ML UDC PO PRN (20:30)
[2022-12-23] MEDS ORDERED: MULTIVITAMINS,THER W-MINERALS TABLET PO NR (21:00)
[2022-12-23] MEDS ORDERED: FOLIC ACID 1 MG, THIAMINE HCL 100 MG in SODIUM CHLORIDE 0.9% 1,000 ML IV ONE (22:00)
[2022-12-23] MEDS ORDERED: PIPERACILLIN/TAZOBACTAM 3.375 G in DEXTROSE 5% WATER 50 ML IV SCH (22:00)
[2022-12-23] MEDS ORDERED: THIAMINE HCL IV ONE (22:30)
[2022-12-23] MEDS ORDERED: FOLIC ACID IV ONE (22:30)
[2022-12-23] MEDS ORDERED: NACL IV ONE (22:30)
[2022-12-23] MEDS ORDERED: DEXT IV ONE (22:30)
[2022-12-23] MEDS ORDERED: DEXTROSE 50% WATER 50ML SYRINGE IV PRN (23:15)
[2022-12-23 23:47] LABS: CREATINE KINASE MB FRACTION 4.7 ng/mL (0.5-3.6)
[2022-12-23] MEDS ORDERED: AZITHROMYCIN 500 MG in DEXT 5% WATER 250 ML IV SCH (23:59)
[2022-12-24] VITALS (7 sets, daily range): BP systolic 113–135; BP diastolic 72–89
[2022-12-24 01:10] LABS: CLARITY URINE CLEAR (CLEAR); COLOR URINE YELLOW (YELLOW); KETONES URINE 1+ (NEGATIVE); LEUKOCYTE ESTERASE URINE 1+ (NEGATIVE); NITRITE URINE NEGATIVE (NEGATIVE); OCCULT BLOOD URINE 2+ (NEGATIVE); PH URINE 5.5 (4.5-8.0); PROTEIN URINE TRACE (NEGATIVE); SPECIFIC GRAVITY URINE 1.008 (1.005-1.030); UROBILINOGEN URINE 0.2 E.U./dL (0.2-1.0)
[2022-12-24 01:27] LABS: *AMPHETAMINES SCREEN URINE NEGATIVE (NEGATIVE); *BARBITURATES SCREEN URINE NEGATIVE (NEGATIVE); *BENZODIAZEPINES SCREEN URINE NEGATIVE (NEGATIVE); *COCAINE SCREEN URINE NEGATIVE (NEGATIVE); METHADONE URINE SCREEN NEGATIVE (NEGATIVE); OPIATES URINE SCREEN NEGATIVE (NEGATIVE); PHENCYCLIDINE URINE SCREEN NEGATIVE (NEGATIVE)
[2022-12-24 01:33] LABS: CANNABINOID URINE SCREEN PRESUMTIVE POSITIVE (NEGATIVE)
[2022-12-24 06:12] LABS: CHLORIDE 110 mEq/L (98-107)
[2022-12-24] MEDS ORDERED: PIPERACILLIN/TAZOBACTAM 3.375 G in DEXTROSE 5% WATER 50 ML IV SCH (06:30)
[2022-12-24 06:33] LABS: CREATINE KINASE 1622 IU/L (26-192); CREATINE KINASE MB FRACTION 5.1 ng/mL (0.5-3.6); HDL CHOLESTEROL 50 mg/dL (40-59); LDL CHOLESTEROL 49 mg/dL (5-100); T4 FREE 0.95 ng/dL (0.76-1.46)
[2022-12-24] MEDS: BLOOD SUGAR DIAGNOSTIC STRIP TEST SCH ×4 (06:40→21:00)
[2022-12-24] MEDS: INSULIN LISPRO 100 UNITS/ML SUBCUT SCH ×4 (07:10→21:00)
[2022-12-24] MEDS: LEVETIRACETAM 250MG TABLET PO SCH ×2 (08:37→20:16)
[2022-12-24] MEDS: PIPERACILLIN/TAZOBACTAM 3.375 G in DEXTROSE 5% WATER 50 ML IV SCH ×2 (08:37→14:55)
[2022-12-24] MEDS ORDERED: POTASSIUM CHLORIDE 20MEQ/PACKET PO NR (08:45)
[2022-12-24] MEDS ORDERED: ASPIRIN 81MG TABLET PO SCH (09:00)
[2022-12-24] MEDS ORDERED: ENOXAPARIN 40MG/0.4ML SYR SUBCUT SCH (09:00)
[2022-12-24] MEDS ORDERED: AZITHROMYCIN 500 MG in DEXT 5% WATER 250 ML IV SCH (11:00)
[2022-12-24 11:23] LABS: BASOPHILS % 0.3 % (0.0-2.0); HEMATOCRIT. 34.4 % (36.0-48.0); HEMOGLOBIN. 11.4 g/dL (12.0-16.0); LYMPHOCYTES % 10.4 % (20.0-50.0); MEAN CORPUSCULAR HEMOGLOBIN 31.5 pg (28.0-32.0); MEAN CORPUSCULAR VOLUME 94.9 fL (81.0-99.0); MEAN PLATELET VOLUME 9.8 fl (7.4-10.4); MONOCYTES % 6.4 % (2.0-8.0); NEUTROPHILS % 82.9 % (40.0-76.0); PLATELET 176 x1000/uL (130-400); RED BLOOD CELL COUNT 3.62 mill/uL (4.2-5.4); RED CELL DISTRIBUTION WIDTH 15.5 % (11.6-14.6)
[2022-12-24] MEDS ORDERED: FAMOTIDINE 20MG TABLET PO SCH (21:00)
== END 2022-12-24 22:42 | disposition short-term general hospital (02) | DRG 871 ==
LOC: ER 15:46 → 7EST 19:33 → EDBEDREQ 19:50 → ENRESERV 23:15
PROVIDERS: ADMIT Internal Medicine; ATTEND Internal Medicine
DX: A41.9 Sepsis, unspecified organism (principal); G93.41 Metabolic encephalopathy; U07.1 COVID-19; I21.4 Non-ST elevation (NSTEMI) myocardial infarction; N17.9 Acute kidney failure, unspecified; N18.9 Chronic kidney disease, unspecified; I12.9 Hypertensive chronic kidney disease with stage 1 through stage 4 chronic kidney disease, or unspecified chronic kidney disease; E11.22 Type 2 diabetes mellitus with diabetic chronic kidney disease; E11.649 Type 2 diabetes mellitus with hypoglycemia without coma; F12.10 Cannabis abuse, uncomplicated; Z96.41 Presence of insulin pump (external) (internal); Z79.4 Long term (current) use of insulin; Z86.73 Personal history of transient ischemic attack (TIA), and cerebral infarction without residual deficits
CPT/HCPCS: 36415; 71045; 80053; 80061; 80305; 80320; 81003; 82010; 82542; 82550; 82553; 82570; 82728; 82962; 83036; 83605; 84145; 84300; 84439; 84443; 84484; 84703; 85025; 85651; 87426; 93005; 97162; 99291; C9803; J0456; J1650; J1953; J2543; J3411; J3490; J7030; J7042; J7060; G0480

== ENCOUNTER 2023-03-03 16:01 | Inpatient (IN) | payer OTHER ==
[~2023-03-03] VITALS: Ht 165.1 cm; Wt 55.4 kg
[2023-03-03] MEDS ORDERED: ACETAMINOPHEN 325MG TABLET PO STA (16:19)
[2023-03-03] MEDS ORDERED: LORAZEPAM 2MG/ML CPJ IV ONE ×2 (16:30→20:45)
[2023-03-03] MEDS ORDERED: LEVETIRACETAM 500MG PREMIX 100 ML IV ONE (16:30)
[2023-03-03 17:33] LABS: HEMATOCRIT. 32.7 % (36.0-48.0); HEMOGLOBIN. 10.5 g/dL (12.0-16.0); MEAN CORPUSCULAR HEMOGLOBIN 30.4 pg (28.0-32.0); MEAN CORPUSCULAR VOLUME 94.7 fL (81.0-99.0); MEAN PLATELET VOLUME 9.7 fl (7.4-10.4); PLATELET 286 x1000/uL (130-400); RED BLOOD CELL COUNT 3.45 mill/uL (4.2-5.4); RED CELL DISTRIBUTION WIDTH 15.2 % (11.6-14.6)
[2023-03-03 17:38] LABS: CHLORIDE 110 mEq/L (98-107)
[2023-03-03] MEDS ORDERED: SODIUM CHLORIDE 0.9% 1000ML BAG (SEPSIS BOLUS) IV ONE (18:15)
[2023-03-03] MEDS ORDERED: VANCOMYCIN 1G PREMIX 200 ML IV ONE (18:15)
[2023-03-03] MEDS ORDERED: PIPERACILLIN/TAZ 3.375G PREMIX 50 ML IV ONE (18:15)
[2023-03-03 18:48] LABS: PLATELET ESTIMATE NORMAL
[2023-03-03 23:14] LABS: CLARITY URINE CLEAR (CLEAR); COLOR URINE YELLOW (YELLOW); KETONES URINE 4+ (NEGATIVE); LEUKOCYTE ESTERASE URINE NEGATIVE (NEGATIVE); NITRITE URINE NEGATIVE (NEGATIVE); OCCULT BLOOD URINE 1+ (NEGATIVE); PH URINE 5.5 (4.5-8.0); PROTEIN URINE NEGATIVE (NEGATIVE); SPECIFIC GRAVITY URINE 1.021 (1.005-1.030); UROBILINOGEN URINE 0.2 E.U./dL (0.2-1.0)
[2023-03-04] VITALS (10 sets, daily range): BP systolic 102–135; BP diastolic 57–84; PULSE 94–117; RESP 16–40; TEMP 97.6–98.6
[2023-03-04] MEDS ORDERED: CLONIDINE 0.1MG TABLET PO PRN (00:45)
[2023-03-04] MEDS ORDERED: DEXTROSE 50% WATER 50ML SYRINGE IV PRN (00:45)
[2023-03-04] MEDS ORDERED: MAGNESIUM/ALUMINUM HYDROXIDE/SIMETHICONE 30ML UDC PO PRN (00:45)
[2023-03-04] MEDS ORDERED: ONDANSETRON HCL 4MG/2ML INJ IV PRN (00:45)
[2023-03-04] MEDS ORDERED: ACETAMINOPHEN 650MG SUPP PR PRN (00:45)
[2023-03-04] MEDS ORDERED: INSULIN REGULAR (HUMULIN R) 300UNITS/3ML VIAL IV NR (00:45)
[2023-03-04] MEDS ORDERED: LORAZEPAM 2MG/ML CPJ IV PRN ×2 (00:45→21:30)
[2023-03-04] MEDS ORDERED: IPRATROPIUM/ALBUTEROL 0.5-3(2.5)MG/3ML NEB HHN PRN (00:45)
[2023-03-04] MEDS ORDERED: POTASSIUM CHLORIDE INJ 40 MEQ in SODIUM CHLORIDE 0.9% 250 ML IV ONE (00:45)
[2023-03-04] MEDS ORDERED: DOCUSATE SODIUM 100MG CAPSULE PO PRN (00:45)
[2023-03-04 02:34] LABS: *AMPHETAMINES SCREEN URINE NEGATIVE (NEGATIVE); *BARBITURATES SCREEN URINE NEGATIVE (NEGATIVE); *BENZODIAZEPINES SCREEN URINE NEGATIVE (NEGATIVE); *COCAINE SCREEN URINE NEGATIVE (NEGATIVE); METHADONE URINE SCREEN NEGATIVE (NEGATIVE); OPIATES URINE SCREEN NEGATIVE (NEGATIVE); PHENCYCLIDINE URINE SCREEN NEGATIVE (NEGATIVE)
[2023-03-04 02:47] LABS: CANNABINOID URINE SCREEN PRESUMTIVE POSITIVE (NEGATIVE)
[2023-03-04] MEDS ORDERED: VANCOMYCIN 1G PREMIX 200 ML IV NR ×2 (03:00→06:00)
[2023-03-04] MEDS ORDERED: KCL 20MEQ/100ML X 2 FOR TOTAL KCL 40MEQ/200ML IV SCH (03:00)
[2023-03-04] MEDS: KCL 20MEQ/100ML X 2 FOR TOTAL KCL 40MEQ/200ML IV SCH ×2 (04:36→11:49)
[2023-03-04] MEDS: INSULIN LISPRO 100 UNITS/ML SUBCUT SCH ×4 (05:16→20:32)
[2023-03-04] MEDS ORDERED: LEVETIRACETAM 250 MG in SODIUM CHLORIDE 0.9% 100 ML IV SCH (06:00)
[2023-03-04] MEDS ORDERED: LEVETIRACETAM 500 MG in SODIUM CHLORIDE 0.9% 100 ML IV SCH (07:00)
[2023-03-04] MEDS ORDERED: INSULIN LISPRO 100 UNITS/ML SUBCUT SCH ×2 (07:30→08:00)
[2023-03-04] MEDS: ENOXAPARIN 40MG/0.4ML SYR SUBCUT SCH (08:26)
[2023-03-04] MEDS: PANTOPRAZOLE SODIUM 40 MG/VIAL IV SCH (08:26)
[2023-03-04] MEDS: BLOOD SUGAR DIAGNOSTIC STRIP TEST SCH ×4 (08:27→20:20)
[2023-03-04] MEDS: PIPERACILLIN/TAZOBACTAM 3.375 G in DEXTROSE 5% WATER 50 ML IV SCH ×3 (08:27→21:49)
[2023-03-04] MEDS: ACETAMINOPHEN 650MG SUPP PR PRN ×2 (09:53→15:56)
[2023-03-04] MEDS: LEVETIRACETAM 500MG PREMIX 100 ML IV SCH ×2 (11:01→20:20)
[2023-03-04 11:36] LABS: CHLORIDE 114 mEq/L (98-107)
[2023-03-04 12:05] LABS: CREATINE KINASE 1205 IU/L (26-192); CREATINE KINASE MB FRACTION 5.3 ng/mL (0.5-3.6)
[2023-03-04 17:28] LABS: CREATINE KINASE MB FRACTION 8.5 ng/mL (0.5-3.6)
[2023-03-04] MEDS: KETOROLAC 15MG/ML VIAL IV PRN (17:39)
[2023-03-04] MEDS: VANCOMYCIN 750MG PREMIX 150 ML IV SCH (20:20)
[2023-03-04] MEDS ORDERED: PREDNISONE 20MG TABLET PO NR (21:30)
[2023-03-04] MEDS ORDERED: INSULIN GLARGINE 100 UNITS/ML SUBCUT SCH ×2 (22:00)
[2023-03-05] VITALS (8 sets, daily range): BP systolic 97–128; BP diastolic 60–86; PULSE 86–102; RESP 8–34; TEMP 98–99.1
[2023-03-05] MEDS: PIPERACILLIN/TAZOBACTAM 3.375 G in DEXTROSE 5% WATER 50 ML IV SCH ×3 (05:31→22:09)
[2023-03-05 06:54] LABS: HEMATOCRIT. 31.6 % (36.0-48.0); HEMOGLOBIN. 10.1 g/dL (12.0-16.0); MEAN CORPUSCULAR HEMOGLOBIN 30.7 pg (28.0-32.0); MEAN CORPUSCULAR VOLUME 96.2 fL (81.0-99.0); PLATELET 207 x1000/uL (130-400); RED BLOOD CELL COUNT 3.29 mill/uL (4.2-5.4); RED CELL DISTRIBUTION WIDTH 16.1 % (11.6-14.6)
[2023-03-05] MEDS: BLOOD SUGAR DIAGNOSTIC STRIP TEST SCH ×4 (07:30→21:04)
[2023-03-05 07:37] LABS: CHLORIDE 86 mEq/L (98-107)
[2023-03-05 07:56] LABS: HDL CHOLESTEROL 62 mg/dL (40-59); LDL CHOLESTEROL 57 mg/dL (5-100); T4 FREE 1.15 ng/dL (0.76-1.46)
[2023-03-05] MEDS ORDERED: INSULIN LISPRO 100 UNITS/ML SUBCUT SCH (08:30)
[2023-03-05] MEDS: ENOXAPARIN 40MG/0.4ML SYR SUBCUT SCH (09:16)
[2023-03-05] MEDS: INSULIN LISPRO 100 UNITS/ML SUBCUT SCH ×6 (09:17→21:00)
[2023-03-05] MEDS: VANCOMYCIN 750MG PREMIX 150 ML IV SCH ×2 (09:20→20:00)
[2023-03-05] MEDS: INSULIN GLARGINE 100 UNITS/ML SUBCUT SCH (09:20)
[2023-03-05] MEDS: LEVETIRACETAM 1,000 MG in SODIUM CHLORIDE 0.9% 100 ML IV SCH ×2 (09:20→21:23)
[2023-03-05] MEDS: PANTOPRAZOLE SODIUM 40 MG/VIAL IV SCH (09:24)
[2023-03-05] MEDS: KETOROLAC 15MG/ML VIAL IV PRN ×2 (12:31→22:10)
[2023-03-05 12:38] LABS: PLATELET ESTIMATE NORMAL
[2023-03-05] MEDS ORDERED: SODIUM CHLORIDE 0.9% 1000ML BAG (SEPSIS BOLUS) IV ONE (13:30)
[2023-03-05 14:40] LABS: BG BASE EXCESS -7.7 mmol/L (-2.0-2.0); BG DEOXYHEMOGLOBIN 2.7 % (0.0-5.0); BG FRACTION INSPIRED OXYGEN 21; BG HCO3 ACT 16.2 mmol/L (22.0-26.0); BG METHEMOGLOBIN 0.2 % (0.0-1.5); BG OXYGEN SATURATION 97.3 % (92.0-98.5); BG OXYHEMOGLOBIN 97.1 % (94.0-97.0); BG PH 7.379 (7.350-7.450); BG PO2 93.4 mmHg (75.0-100.0); BG SAMPLE SITE RIGHT RADIAL; BG TOTAL HEMOGLOBIN 11.2 g/dL (12.0-18.0); BG VENT MODE ROOM AIR
[2023-03-05 16:44] LABS: CHLORIDE 107 mEq/L (98-107)
[2023-03-05 16:48] LABS: BETA HYDROXYBUTYRATE 1.7 mMol/L (0.0-0.3)
[2023-03-06] VITALS: BP 142/97; PULSE 97; RESP 21; TEMP 98.6
[2023-03-06 04:00] VITALS: BP 108/57; PULSE 79; RESP 30; TEMP 98.4
[2023-03-06] MEDS: PIPERACILLIN/TAZOBACTAM 3.375 G in DEXTROSE 5% WATER 50 ML IV SCH ×3 (06:05→21:01)
[2023-03-06 06:30] LABS: CHLORIDE 109 mEq/L (98-107)
[2023-03-06] MEDS: BLOOD SUGAR DIAGNOSTIC STRIP TEST SCH ×4 (07:30→20:42)
[2023-03-06 08:00] VITALS: BP 121/77; PULSE 91; RESP 25
[2023-03-06] MEDS: INSULIN LISPRO 100 UNITS/ML SUBCUT SCH ×7 (08:00→21:00)
[2023-03-06] MEDS ORDERED: LEVETIRACETAM 1000MG PREMIX 100 ML IV SCH (09:00)
[2023-03-06] MEDS: FAMOTIDINE 20MG/2ML VIAL IV SCH ×2 (09:14→20:43)
[2023-03-06] MEDS: ENOXAPARIN 40MG/0.4ML SYR SUBCUT SCH (09:14)
[2023-03-06] MEDS: INSULIN GLARGINE 100 UNITS/ML SUBCUT SCH (09:18)
[2023-03-06 12:00] VITALS: BP 114/71; PULSE 100; RESP 18
[2023-03-06] MEDS: VANCOMYCIN 750MG PREMIX 150 ML IV SCH ×2 (12:00→15:09)
[2023-03-06 16:00] VITALS: BP 111/79; PULSE 68; RESP 18
[2023-03-06 20:00] VITALS: BP 123/81; PULSE 84; RESP 19; TEMP 97.1
[2023-03-06] MEDS: LEVETIRACETAM 1,000 MG in SODIUM CHLORIDE 0.9% 100 ML IV SCH (20:48)
[2023-03-07] VITALS (7 sets, daily range): BP systolic 98–120; BP diastolic 59–90; PULSE 70–91; RESP 17–21; TEMP 97.8–98.9
[2023-03-07] MEDS: VANCOMYCIN 750MG PREMIX 150 ML IV SCH (05:18)
[2023-03-07] MEDS: PIPERACILLIN/TAZOBACTAM 3.375 G in DEXTROSE 5% WATER 50 ML IV SCH ×3 (05:18→21:56)
[2023-03-07 06:09] LABS: BASOPHILS % 0.5 % (0.0-2.0); EOSINOPHILS % 0.2 % (0.0-5.0); HEMATOCRIT. 33.9 % (36.0-48.0); MEAN CORPUSCULAR HEMOGLOBIN 30.2 pg (28.0-32.0); MEAN CORPUSCULAR VOLUME 93.2 fL (81.0-99.0); MEAN PLATELET VOLUME 10.5 fl (7.4-10.4); NEUTROPHILS % 69.3 % (40.0-76.0); PLATELET 228 x1000/uL (130-400); RED BLOOD CELL COUNT 3.64 mill/uL (4.2-5.4); RED CELL DISTRIBUTION WIDTH 15.3 % (11.6-14.6)
[2023-03-07 06:30] LABS: CHLORIDE 114 mEq/L (98-107)
[2023-03-07 06:42] LABS: PHOSPHORUS 2.4 mg/dL (2.5-4.9)
[2023-03-07] MEDS: BLOOD SUGAR DIAGNOSTIC STRIP TEST SCH ×4 (07:30→21:00)
[2023-03-07] MEDS: INSULIN LISPRO 100 UNITS/ML SUBCUT SCH ×7 (08:00→21:58)
[2023-03-07] MEDS: INSULIN GLARGINE 100 UNITS/ML SUBCUT SCH (09:00)
[2023-03-07] MEDS: FAMOTIDINE 20MG/2ML VIAL IV SCH ×2 (09:21→22:07)
[2023-03-07] MEDS: ENOXAPARIN 40MG/0.4ML SYR SUBCUT SCH (09:22)
[2023-03-07] MEDS: LEVETIRACETAM 1,000 MG in SODIUM CHLORIDE 0.9% 100 ML IV SCH ×2 (10:09→21:56)
[2023-03-07] MEDS ORDERED: POTASSIUM PHOS,M-BASIC-D-BASIC 30 MMOL in DEXT 5% WATER 500 ML IV NR (16:30)
[2023-03-08] VITALS: BP 109/68; PULSE 69; RESP 20; TEMP 98.6
[2023-03-08] MEDS: VANCOMYCIN 750MG PREMIX 150 ML IV SCH (01:13)
[2023-03-08 04:00] VITALS: BP 118/88; PULSE 85; RESP 18; TEMP 98.6
[2023-03-08] MEDS: PIPERACILLIN/TAZOBACTAM 3.375 G in DEXTROSE 5% WATER 50 ML IV SCH (06:28)
[2023-03-08] MEDS: BLOOD SUGAR DIAGNOSTIC STRIP TEST SCH (07:10)
[2023-03-08 07:33] LABS: CHLORIDE 107 mEq/L (98-107)
[2023-03-08 07:35] LABS: HEMATOCRIT. 30.8 % (36.0-48.0); HEMOGLOBIN. 10.2 g/dL (12.0-16.0); MEAN CORPUSCULAR HEMOGLOBIN 30.6 pg (28.0-32.0); MEAN CORPUSCULAR VOLUME 92.4 fL (81.0-99.0); PLATELET 225 x1000/uL (130-400); RED BLOOD CELL COUNT 3.34 mill/uL (4.2-5.4); RED CELL DISTRIBUTION WIDTH 14.8 % (11.6-14.6)
[2023-03-08 07:45] LABS: PHOSPHORUS 2.8 mg/dL (2.5-4.9)
[2023-03-08 08:00] VITALS: BP 113/73; PULSE 68; RESP 18; TEMP 97.9
[2023-03-08] MEDS: INSULIN LISPRO 100 UNITS/ML SUBCUT SCH ×2 (08:30)
[2023-03-08] MEDS: FAMOTIDINE 20MG/2ML VIAL IV SCH (08:40)
[2023-03-08] MEDS: LEVETIRACETAM 1,000 MG in SODIUM CHLORIDE 0.9% 100 ML IV SCH (08:40)
[2023-03-08] MEDS: ENOXAPARIN 40MG/0.4ML SYR SUBCUT SCH (08:41)
[2023-03-08] MEDS ORDERED: LEVO-65 MT (08:59)
[2023-03-08] MEDS ORDERED: LEVE1000 MT (08:59)
[2023-03-08] MEDS: INSULIN GLARGINE 100 UNITS/ML SUBCUT SCH (09:00)
[2023-03-08 11:31] VITALS: BP 113/73; PULSE 68; TEMP 97.9; O2SAT 100
[2023-03-08] MEDS ORDERED: VANCOMYCIN 750MG PREMIX 150 ML IV SCH (12:00)
[2023-03-08 15:30] LABS: PLATELET ESTIMATE NORMAL
== END 2023-03-08 15:05 | disposition home or self-care (01) | DRG 871 ==
LOC: ER 16:01 → 5EST 22:53 → EDBEDREQ 22:56 → EDBEDREQTM 22:56 → ENRESERV 23:32 → 5EST 03-04 04:33 → 8WST 03-07 14:28
PROVIDERS: ADMIT Internal Medicine; ATTEND Internal Medicine
DX: A41.9 Sepsis, unspecified organism (principal); E10.10 Type 1 diabetes mellitus with ketoacidosis without coma; G92.8 Other toxic encephalopathy; E87.1 Hypo-osmolality and hyponatremia; M62.82 Rhabdomyolysis; Z20.822 Contact with and (suspected) exposure to COVID-19; G40.909 Epilepsy, unspecified, not intractable, without status epilepticus; E10.649 Type 1 diabetes mellitus with hypoglycemia without coma; I10 Essential (primary) hypertension; T78.3XXA Angioneurotic edema, initial encounter; Z87.820 Personal history of traumatic brain injury; Z96.41 Presence of insulin pump (external) (internal); Z79.4 Long term (current) use of insulin
CPT/HCPCS: 36415; 36600; 71045; 80048; 80053; 80061; 80202; 80305; 81003; 82010; 82375; 82550; 82553; 82805; 82962; 83036; 83605; 83735; 84100; 84145; 84439; 84443; 84481; 84484; 85025; 87426; 87804; 92610; 93005; 93970; 97162; 99291; C1893; C9113; C9803; J1650; J1815; J1885; J1953; J2060; J2543; J3370; J3480; J3490; J7030; J7050; J7060; J7512

== ENCOUNTER 2023-11-11 17:02 | Inpatient (IN) | payer OTHER ==
[~2023-11-11] VITALS: Ht 170.2 cm; Wt 60.9 kg
[~2023-11-11 17:02] MED LIST changes: -KEPP250 MT; -KEPPSOL PO; +LEVE1000 MT; +LEVO-65 MT
[2023-11-11] MEDS: DEXTROSE 50% WATER 50ML SYRINGE IV ONE (17:51)
[2023-11-11] MEDS: LORAZEPAM 2MG/ML INJ IV ONE ×2 (17:51→21:01)
[2023-11-11] MEDS: LEVETIRACETAM 500MG PREMIX 100 ML IV ONE ×3 (17:52→21:14)
[2023-11-11 17:56] LABS: HEMATOCRIT. 39.4 % (36.0-48.0); HEMOGLOBIN. 12.2 g/dL (12.0-16.0); MEAN CORPUSCULAR HEMOGLOBIN 29.1 pg (28.0-32.0); MEAN CORPUSCULAR HGB CONC 30.9 g/dL (31.0-37.0); MEAN CORPUSCULAR VOLUME 94.1 fL (81.0-99.0); MEAN PLATELET VOLUME 10.6 fl (7.4-10.4); PLATELET 280 x1000/uL (130-400); RED BLOOD CELL COUNT 4.18 mill/uL (4.2-5.4); RED CELL DISTRIBUTION WIDTH 14.4 % (11.6-14.6); WHITE BLOOD COUNT 27.7 x1000/uL (4.5-11.0)
[2023-11-11 17:57] LABS: DIFFERENTIAL COMMENT 1
[2023-11-11 18:12] LABS: AMMONIA < 10 uMol/L (<32)
[2023-11-11 18:13] LABS: HCG SCREEN NEGATIVE
[2023-11-11 18:25] LABS: ACETAMINOPHEN < 2 ug/mL (10-30); ALANINE AMINOTRANSFERASE 29 IU/L (10-49); ALBUMIN 5.1 g/dL (3.2-4.8); ASPARTATE AMINOTRANSFERASE 129 IU/L (<34); BILIRUBIN TOTAL 0.4 mg/dL (0.1-1.0); CARBON DIOXIDE 19 mEq/L (21-32); CHLORIDE 110 mEq/L (98-107); CREATINE KINASE 6562 IU/L (34-145); CREATININE 1.1 mg/dL (0.6-1.0); GLUCOSE 124 mg/dL (70-105); POTASSIUM 3.5 mEq/L (3.5-5.1); PROTEIN TOTAL 9.1 g/dL (6.0-8.3); SODIUM 137 mEq/L (136-145); UREA NITROGEN BLOOD 22 mg/dL (9-23)
[2023-11-11 18:27] LABS: ETHANOL BLOOD < 10 mg/dL (<10); TROPONIN I HIGH SENSITIVITY 6442 ng/L (3.0-34)
[2023-11-11 18:43] LABS: BETA HYDROXYBUTYRATE 1.9 mMol/L (0.0-0.3)
[2023-11-11 18:47] LABS: PLATELET ESTIMATE NORMAL
[2023-11-11 19:15] VITALS: PULSE 124; RESP 17
[2023-11-11] MEDS: ETOMIDATE 2MG/ML 10ML VIAL IV ONE (19:23)
[2023-11-11] MEDS: SUCCINYLCHOLINE CHLORIDE 200MG/10ML IV ONE (19:24)
[2023-11-11] MEDS: PROPOFOL 10MG/ML 100ML 100 ML IV ONE (19:38)
[2023-11-11] MEDS: DEXT 5%/0.45% NACL 1000ML 1,000 ML IV ONE (19:40)
[2023-11-11] MEDS: SODIUM CHLORIDE 0.9% 1000ML BAG (SEPSIS BOLUS) IV ONE (19:45)
[2023-11-11 20:26] LABS: CLARITY URINE CLEAR (CLEAR); COLOR URINE YELLOW (YELLOW); GLUCOSE URINE 2+ (NEGATIVE); KETONES URINE 1+ (NEGATIVE); LEUKOCYTE ESTERASE URINE NEGATIVE (NEGATIVE); NITRITE URINE NEGATIVE (NEGATIVE); OCCULT BLOOD URINE 3+ (NEGATIVE); PH URINE 5.5 (4.5-8.0); PROTEIN URINE 2+ (NEGATIVE); SPECIFIC GRAVITY URINE 1.023 (1.005-1.030); UROBILINOGEN URINE 0.2 E.U./dL (0.2-1.0)
[2023-11-11 20:34] LABS: *AMPHETAMINES SCREEN URINE NEGATIVE (NEGATIVE); *BARBITURATES SCREEN URINE NEGATIVE (NEGATIVE); *BENZODIAZEPINES SCREEN URINE NEGATIVE (NEGATIVE); *COCAINE SCREEN URINE NEGATIVE (NEGATIVE); CANNABINOID URINE SCREEN PRESUMPTIVE POSITIVE (NEGATIVE); ECSTASY MDMA SCREEN URINE NEGATIVE (NEGATIVE); METHADONE URINE SCREEN Neg (NEGATIVE); OPIATES URINE SCREEN NEGATIVE (NEGATIVE); PHENCYCLIDINE URINE SCREEN NEGATIVE (NEGATIVE)
[2023-11-11 20:37] LABS: BG BASE EXCESS -3.5 mmol/L (-2.0-2.0); BG CARBOXYHEMOGLOBIN 0.3 % (0.5-1.5); BG FRACTION INSPIRED OXYGEN 100; BG HCO3 ACT 19.6 mmol/L (22.0-26.0); BG METHEMOGLOBIN 0.3 % (0.0-1.5); BG OXYHEMOGLOBIN 99.4 % (94.0-97.0); BG PCO2 29.4 mmHg (35.0-45.0); BG PH 7.441 (7.350-7.450); BG PO2 504.8 mmHg (75.0-100.0); BG SAMPLE SITE RIGHT BRACHIAL; BG TOTAL HEMOGLOBIN 12.5 g/dL (12.0-18.0); BG TOTAL RESPIRATORY RATE 17 b/min; BG VENT MODE VENT - AC
[2023-11-11 20:41] LABS: BACTERIA URINE 2+; RBC URINE 15-25 /hpf (0-2); SQUAMOUS EPITHELIAL CELL URINE 1+ /lpf (RARE/1+); WBC URINE 0-2 /hpf (0-2)
[2023-11-11] MEDS: MIDAZOLAM HCL 2 MG/2 ML VIAL IV ONE (20:44)
[2023-11-11] MEDS: SODIUM CHLORIDE 0.9% 1,000 ML IV ONE (21:01)
[2023-11-11] MEDS ORDERED: FENTANYL 2500MCG/250ML PMX 250 ML IV ONE (21:15)
[2023-11-11] MEDS: PIPERACILLIN/TAZO 3.375G/50ML 50 ML IV SCH (22:00)
[2023-11-11] MEDS ORDERED: ENOXAPARIN 40MG/0.4ML SYR SUBCUT SCH (22:45)
[2023-11-11] MEDS ORDERED: ONDANSETRON HCL 4MG/2ML INJ IV PRN (22:45)
[2023-11-11] MEDS ORDERED: LEVE500T19 PO (22:59)
[2023-11-11] MEDS: FENTANYL CITRATE 2,500 MCG in SODIUM CHLORIDE 0.9% 200 ML IV PRN (23:04)
[2023-11-11] MEDS: THIAMINE HCL 200 MG in SODIUM CHLORIDE 0.9% 98 ML IV SCH (23:15)
[2023-11-11] MEDS: VANCOMYCIN 1G PREMIX 200 ML IV NR (23:30)
[2023-11-11] MEDS: PANTOPRAZOLE SODIUM 40 MG/VIAL IV SCH (23:40)
[2023-11-11] MEDS: FUROSEMIDE 40MG/4ML VIAL IV SCH (23:40)
[2023-11-11] MEDS: DEXTROSE 5% WATER 1,000 ML IV SCH (23:55)
[2023-11-12] VITALS (75 sets, daily range): BP systolic 97–137; BP diastolic 76–109; PULSE 92–152; RESP 14–18; TEMP 98–99.1
[2023-11-12 01:16] LABS: BG BASE EXCESS -7.4 mmol/L (-2.0-2.0); BG CARBOXYHEMOGLOBIN 0.3 % (0.5-1.5); BG DEOXYHEMOGLOBIN 1.3 % (0.0-5.0); BG FRACTION INSPIRED OXYGEN 50; BG HCO3 ACT 16.3 mmol/L (22.0-26.0); BG OXYGEN SATURATION 98.7 % (92.0-98.5); BG OXYHEMOGLOBIN 98.4 % (94.0-97.0); BG PCO2 28.1 mmHg (35.0-45.0); BG PH 7.382 (7.350-7.450); BG PO2 145.3 mmHg (75.0-100.0); BG SAMPLE SITE RIGHT BRACHIAL; BG TOTAL HEMOGLOBIN 12.6 g/dL (12.0-18.0); BG TOTAL RESPIRATORY RATE 16 b/min; BG VENT MODE VENT - AC
[2023-11-12 01:49] LABS: CALCIUM 8.3 mg/dL (8.7-10.4); CARBON DIOXIDE 16 mEq/L (21-32); CHLORIDE 109 mEq/L (98-107); GLUCOSE 272 mg/dL (70-105); PHOSPHORUS 2.3 mg/dL (2.5-4.9); POTASSIUM 3.3 mEq/L (3.5-5.1); SODIUM 140 mEq/L (136-145); UREA NITROGEN BLOOD 20 mg/dL (9-23)
[2023-11-12 02:45] LABS: D-DIMER 0.81 mg/L FEU (<0.50); PROTHROMBIN TIME 11.5 sec (9.6-11.0)
[2023-11-12] MEDS ORDERED: MIDAZOLAM HCL 100 MG in SODIUM CHLORIDE 0.9% 80 ML IV PRN (03:30)
[2023-11-12] MEDS ORDERED: FENTANYL CITRATE/PF 2,500 MCG in SODIUM CHLORIDE 0.9% 200 ML IV PRN (03:30)
[2023-11-12] MEDS ORDERED: DEXTROSE 50% WATER 50ML SYRINGE IV PRN (03:45)
[2023-11-12] MEDS ORDERED: LEVETIRACETAM 1,000 MG in SODIUM CHLORIDE 0.9% 100 ML IV SCH ×2 (05:00→09:00)
[2023-11-12] MEDS: MAGNESIUM 2 G PREMIX 50 ML IV NR (05:13)
[2023-11-12] MEDS ORDERED: POTASSIUM PHOS,M-BASIC-D-BASIC 20 MMOL in DEXT 5% WATER 243.3333 ML IV NR (05:30)
[2023-11-12] MEDS: PIPERACILLIN/TAZO 3.375G/50ML 50 ML IV SCH ×2 (05:52→22:20)
[2023-11-12] MEDS: VANCOMYCIN 750MG PREMIX 150 ML IV SCH ×2 (06:07→21:51)
[2023-11-12 06:48] LABS: ALANINE AMINOTRANSFERASE 36 IU/L (10-49); ASPARTATE AMINOTRANSFERASE 141 IU/L (<34); BILIRUBIN TOTAL 0.7 mg/dL (0.1-1.0); CALCIUM 8.6 mg/dL (8.7-10.4); CARBON DIOXIDE 14 mEq/L (21-32); CHLORIDE 105 mEq/L (98-107); CHOLESTEROL 160 mg/dL (<200); CREATININE 1.2 mg/dL (0.6-1.0); HDL CHOLESTEROL 56 mg/dL (>65); HEMATOCRIT. 35.6 % (36.0-48.0); HEMOGLOBIN. 11.4 g/dL (12.0-16.0); LDL CHOLESTEROL 73 mg/dL (5-100); MEAN CORPUSCULAR HEMOGLOBIN 29.6 pg (28.0-32.0); MEAN CORPUSCULAR VOLUME 92.5 fL (81.0-99.0); MEAN PLATELET VOLUME 10.5 fl (7.4-10.4); PLATELET 209 x1000/uL (130-400); POTASSIUM 3.5 mEq/L (3.5-5.1); PROTEIN TOTAL 7.3 g/dL (6.0-8.3); RED BLOOD CELL COUNT 3.85 mill/uL (4.2-5.4); RED CELL DISTRIBUTION WIDTH 14.9 % (11.6-14.6); SODIUM 136 mEq/L (136-145); T4 FREE 1.31 ng/dL (0.89-1.76); THYROID STIMULATING HORMONE 0.67 uIU/mL (0.55-4.78); TRIGLYCERIDE 202 mg/dL (0-150); UREA NITROGEN BLOOD 25 mg/dL (9-23)
[2023-11-12 06:51] LABS: GLUCOSE 435 mg/dL (70-105)
[2023-11-12 06:52] LABS: DIFFERENTIAL COMMENT 1
[2023-11-12 06:56] LABS: CREATINE KINASE MB FRACTION 61.3 ng/mL (0.5-3.6)
[2023-11-12] MEDS ORDERED: INSULIN REGULAR (HUMULIN R) 300UNITS/3ML VIAL SUBCUT NR (07:30)
[2023-11-12] MEDS ORDERED: INSULIN LISPRO 100 UNITS/ML SUBCUT SCH (07:35)
[2023-11-12] MEDS ORDERED: BLOOD SUGAR DIAGNOSTIC STRIP TEST SCH (07:35)
[2023-11-12] MEDS ORDERED: DEXTROSE 50% WATER 50ML (25GM) IV PRN (08:00)
[2023-11-12] MEDS: BLOOD SUGAR DIAGNOSTIC STRIP TEST SCH (08:00)
[2023-11-12] MEDS ORDERED: FENTANYL 2500MCG/250ML PMX 250 ML IV PRN (08:15)
[2023-11-12] MEDS: SODIUM CHLORIDE 0.9% 1,000 ML IV SCH (08:30)
[2023-11-12] MEDS: INSULIN REGULAR 100U/100ML PMX 100 ML IV SCH (08:30)
[2023-11-12 08:53] LABS: PLATELET ESTIMATE NORMAL
[2023-11-12] MEDS ORDERED: FUROSEMIDE 40MG/4ML VIAL IVP SCH (09:00)
[2023-11-12] MEDS ORDERED: LEVETIRACETAM 1000MG PREMIX 100 ML IV SCH (09:00)
[2023-11-12] MEDS: ACETYLCYSTEINE 200MG/ML 20% VIAL 4ML INH SCH (10:06)
[2023-11-12] MEDS: IPRATROPIUM/ALBUTEROL 0.5-3(2.5)MG/3ML NEB HHN SCH (10:06)
[2023-11-12] MEDS: ENOXAPARIN 30MG/0.3ML SYR SUBCUT SCH (10:16)
[2023-11-12] MEDS: LEVETIRACETAM 1,000 MG in SODIUM CHLORIDE 0.9% 100 ML IV SCH (11:53)
[2023-11-12] MEDS: DEXTROSE 50% WATER 25ML (12.5GM) IV PRN (14:54)
[2023-11-12] MEDS: PROPOFOL 10MG/ML 100ML 100 ML IV SCH (15:21)
[2023-11-12 18:22] LABS: CALCIUM 9.4 mg/dL (8.7-10.4); CARBON DIOXIDE 18 mEq/L (21-32); CHLORIDE 109 mEq/L (98-107); CREATININE 1.2 mg/dL (0.6-1.0); GLUCOSE 160 mg/dL (70-105); POTASSIUM 4.4 mEq/L (3.5-5.1); SODIUM 142 mEq/L (136-145); UREA NITROGEN BLOOD 18 mg/dL (9-23)
[2023-11-12 19:00] LABS: CREATINE KINASE MB FRACTION 61.7 ng/mL (0.5-3.6)
[2023-11-12] MEDS: DEXT 5%/0.9% NACL 1,000 ML IV SCH (19:59)
[2023-11-12] MEDS: THIAMINE HCL 200 MG in SODIUM CHLORIDE 0.9% 98 ML IV SCH (22:21)
[2023-11-12] MEDS: POTASSIUM PHOS,M-BASIC-D-BASIC 20 MMOL in DEXT 5% WATER 243.3333 ML IV NR (22:22)
[2023-11-13] VITALS (97 sets, daily range): BP systolic 30–146; BP diastolic 75–109; PULSE 82–145; RESP 16–21; TEMP 98.8–99.4; O2SAT 100
[2023-11-13 01:54] LABS: CALCIUM 8.7 mg/dL (8.7-10.4); CARBON DIOXIDE 21 mEq/L (21-32); CHLORIDE 111 mEq/L (98-107); CREATININE 1.1 mg/dL (0.6-1.0); GLUCOSE 119 mg/dL (70-105); SODIUM 144 mEq/L (136-145); UREA NITROGEN BLOOD 25 mg/dL (9-23)
[2023-11-13 05:49] LABS: CARBON DIOXIDE 20 mEq/L (21-32); CHLORIDE 111 mEq/L (98-107); CREATININE 1.1 mg/dL (0.6-1.0); GLUCOSE 139 mg/dL (70-105); POTASSIUM 3.7 mEq/L (3.5-5.1); SODIUM 145 mEq/L (136-145); UREA NITROGEN BLOOD 25 mg/dL (9-23)
[2023-11-13 08:30] LABS: BG BASE EXCESS -6.2 mmol/L (-2.0-2.0); BG CARBOXYHEMOGLOBIN 0.3 % (0.5-1.5); BG DEOXYHEMOGLOBIN 0.5 % (0.0-5.0); BG FRACTION INSPIRED OXYGEN 40; BG HCO3 ACT 17.3 mmol/L (22.0-26.0); BG METHEMOGLOBIN 0.3 % (0.0-1.5); BG OXYGEN SATURATION 99.5 % (92.0-98.5); BG OXYHEMOGLOBIN 98.9 % (94.0-97.0); BG PCO2 28.4 mmHg (35.0-45.0); BG PH 7.403 (7.350-7.450); BG PO2 248.2 mmHg (75.0-100.0); BG SAMPLE SITE RIGHT RADIAL; BG TOTAL HEMOGLOBIN 11.8 g/dL (12.0-18.0); BG VENT MODE VENT - AC/VC
[2023-11-13] MEDS: LEVETIRACETAM 1,500 MG in SODIUM CHLORIDE 0.9% 100 ML IV SCH (09:28)
[2023-11-13] MEDS ORDERED: DEXTROSE 50% WATER 50ML SYRINGE IV PRN (10:00)
[2023-11-13] MEDS: INSULIN GLARGINE 100 UNITS/ML SUBCUT SCH (10:22)
[2023-11-13] MEDS: SODIUM CHLORIDE 0.45% 1,000 ML IV SCH (10:22)
[2023-11-13] MEDS: BLOOD SUGAR DIAGNOSTIC STRIP TEST SCH (12:13)
[2023-11-13] MEDS: INSULIN LISPRO 100 UNITS/ML SUBCUT SCH (12:28)
[2023-11-13] MEDS: METOPROLOL TARTRATE 5MG/5ML VIAL IV PRN (19:17)
[2023-11-13] MEDS: METOPROLOL TARTRATE 25MG TABLET PO SCH (21:09)
[2023-11-14] VITALS (50 sets, daily range): BP systolic 102–137; BP diastolic 73–107; PULSE 85–129; RESP 0–19; TEMP 99–100.7
[2023-11-14] MEDS: INSULIN REGULAR (HUMULIN R) 300UNITS/3ML VIAL IV NR (00:54)
[2023-11-14 05:05] LABS: CARBON DIOXIDE 22 mEq/L (21-32); CHLORIDE 109 mEq/L (98-107); GLUCOSE 265 mg/dL (70-105); PHOSPHORUS 1.6 mg/dL (2.5-4.9); POTASSIUM 3.3 mEq/L (3.5-5.1); SODIUM 143 mEq/L (136-145); UREA NITROGEN BLOOD 17 mg/dL (9-23)
[2023-11-14 05:56] LABS: BASOPHILS % 0.3 % (0.0-2.0); HEMATOCRIT. 33.3 % (36.0-48.0); HEMOGLOBIN. 10.7 g/dL (12.0-16.0); LYMPHOCYTES % 11.1 % (20.0-50.0); MEAN CORPUSCULAR HEMOGLOBIN 29.7 pg (28.0-32.0); MEAN CORPUSCULAR HGB CONC 32.2 g/dL (31.0-37.0); MEAN CORPUSCULAR VOLUME 92.3 fL (81.0-99.0); MEAN PLATELET VOLUME 10.6 fl (7.4-10.4); MONOCYTES % 7.2 % (2.0-8.0); NEUTROPHILS % 81.4 % (40.0-76.0); PLATELET 261 x1000/uL (130-400); RED CELL DISTRIBUTION WIDTH 14.7 % (11.6-14.6); WHITE BLOOD COUNT 12.6 x1000/uL (4.5-11.0)
[2023-11-14 06:06] LABS: CALCIUM 9.4 mg/dL (8.7-10.4); CARBON DIOXIDE 24 mEq/L (21-32); CHLORIDE 109 mEq/L (98-107); GLUCOSE 208 mg/dL (70-105); POTASSIUM 3.2 mEq/L (3.5-5.1); SODIUM 144 mEq/L (136-145); UREA NITROGEN BLOOD 16 mg/dL (9-23)
[2023-11-14] MEDS: DILTIAZEM HCL 5MG/ML 5ML VIAL IV NR (07:03)
[2023-11-14] MEDS: POTASSIUM PHOS,M-BASIC-D-BASIC 20 MMOL in DEXT 5% WATER 243.3333 ML IV NR (08:57)
[2023-11-14] MEDS: ACETAMINOPHEN 650MG SUPP PR PRN (20:24)
[2023-11-14] MEDS: BLOOD SUGAR DIAGNOSTIC STRIP TEST SCH (23:50)
[2023-11-15] VITALS (55 sets, daily range): BP systolic 98–139; BP diastolic 74–108; PULSE 86–139; RESP 0–21; TEMP 98.2–99.5
[2023-11-15 06:23] LABS: CALCIUM 9.3 mg/dL (8.7-10.4); CARBON DIOXIDE 27 mEq/L (21-32); CHLORIDE 104 mEq/L (98-107); CREATININE 0.9 mg/dL (0.6-1.0); GLUCOSE 171 mg/dL (70-105); SODIUM 142 mEq/L (136-145); UREA NITROGEN BLOOD 15 mg/dL (9-23)
[2023-11-15 06:26] LABS: POTASSIUM 2.6 mEq/L (3.5-5.1)
[2023-11-15] MEDS ORDERED: POTASSIUM CHLORIDE INJ 40 MEQ in DEXT 5% WATER 250 ML IV ONE (10:00)
[2023-11-15 10:34] LABS: BASOPHILS % 0.2 % (0.0-2.0); EOSINOPHILS % 0.6 % (0.0-5.0); HEMOGLOBIN. 10.7 g/dL (12.0-16.0); LYMPHOCYTES % 7.7 % (20.0-50.0); MEAN CORPUSCULAR HEMOGLOBIN 29.7 pg (28.0-32.0); MEAN CORPUSCULAR HGB CONC 32.3 g/dL (31.0-37.0); MEAN CORPUSCULAR VOLUME 92.2 fL (81.0-99.0); MEAN PLATELET VOLUME 10.6 fl (7.4-10.4); NEUTROPHILS % 84.5 % (40.0-76.0); PLATELET 218 x1000/uL (130-400); RED BLOOD CELL COUNT 3.58 mill/uL (4.2-5.4); RED CELL DISTRIBUTION WIDTH 14.6 % (11.6-14.6)
[2023-11-15] MEDS: KCL 20MEQ/100ML X 2 FOR TOTAL KCL 40MEQ/200ML IV SCH (10:34)
[2023-11-15] MEDS: POTASSIUM CHLORIDE 20MEQ TABLET SR PO NR (10:34)
[2023-11-15 10:35] LABS: WHITE BLOOD COUNT 10.9 x1000/uL (4.5-11.0)
== END 2023-11-15 22:10 | disposition short-term general hospital (02) | DRG 870 ==
LOC: ER 17:10 → EDBEDREQ 18:49 → EDBEDREQSVC 21:27 → EDBEDREQ 21:27 → EDBEDREQTM 21:27 → MICUSO 11-12 07:34
PROVIDERS: ADMIT Hospitalist; ATTEND Hospitalist
PROC: 5A1955Z Respiratory Ventilation, Greater than 96 Consecutive Hours (ICD-10-PCS; principal; 2023-11-11)
PROC: 0BH17EZ Insertion of Endotracheal Airway into Trachea, Via Natural or Artificial Opening (ICD-10-PCS; 2023-11-11)
PROC: 06HY33Z Insertion of Infusion Device into Lower Vein, Percutaneous Approach (ICD-10-PCS; 2023-11-12)
PROC: B54BZZA Ultrasonography of Right Lower Extremity Veins, Guidance (ICD-10-PCS; 2023-11-12)
PROC: 02HV33Z Insertion of Infusion Device into Superior Vena Cava, Percutaneous Approach (ICD-10-PCS; 2023-11-12)
PROC: B548ZZA Ultrasonography of Superior Vena Cava, Guidance (ICD-10-PCS; 2023-11-12)
PROC: 4A00X4Z Measurement of Central Nervous Electrical Activity, External Approach (ICD-10-PCS; 2023-11-13)
DX: A41.9 Sepsis, unspecified organism (principal); E11.10 Type 2 diabetes mellitus with ketoacidosis without coma; I21.4 Non-ST elevation (NSTEMI) myocardial infarction; G92.8 Other toxic encephalopathy; J96.00 Acute respiratory failure, unspecified whether with hypoxia or hypercapnia; R65.21 Severe sepsis with septic shock; M62.82 Rhabdomyolysis; E11.649 Type 2 diabetes mellitus with hypoglycemia without coma; G40.901 Epilepsy, unspecified, not intractable, with status epilepticus; I10 Essential (primary) hypertension; Z96.41 Presence of insulin pump (external) (internal); Z79.4 Long term (current) use of insulin; Z79.899 Other long term (current) drug therapy
CPT/HCPCS: 31500; 36415; 36600; 71045; 80048; 80053; 80061; 80202; 80305; 80307; 80320; 80329; 81003; 82010; 82140; 82375; 82542; 82550; 82553; 82805; 82962; 83036; 83605; 83735; 83880; 84100; 84145; 84439; 84443; 84481; 84484; 84703; 85025; 85379; 93005; 93306; 93970; 94002; 94003; 94640; 99291; 99292; C9113; J1650; J1815; J1940; J1953; J2060; J2250; J2543; J2704; J3010; J3370; J3411; J3475; J3480; J3490; J7030; J7042; J7050; J7060; J7608; G0480

== ENCOUNTER 2025-07-02 20:11 | Inpatient (IN) | payer OTHER, MEDICAID ==
[~2025-07-02] VITALS: Ht 165.1 cm; Wt 58.1 kg
[~2025-07-02 20:11] MED LIST changes: -LEVE1000 MT; +LEVE500T19 PO; -LEVO-65 MT
[2025-07-02] MEDS: MIDAZOLAM HCL 2 MG/2 ML VIAL IV ONE (20:32)
[2025-07-02] MEDS: LEVETIRACETAM 1000MG PREMIX 100 ML IV ONE (20:38)
[2025-07-02] MEDS: SODIUM CHLORIDE 0.9% 1,000 ML IV ONE ×2 (20:46→22:33)
[2025-07-02 20:50] LABS: HEMATOCRIT. 41.6 % (36.0-48.0); HEMOGLOBIN. 13.2 g/dL (12.0-16.0); MEAN PLATELET VOLUME 10.1 fl (7.4-10.4); PLATELET 303 x1000/uL (130-400); RED BLOOD CELL COUNT 4.29 mill/uL (4.2-5.4); RED CELL DISTRIBUTION WIDTH 12.8 % (11.6-14.6)
[2025-07-02 20:55] VITALS: PULSE 124; RESP 12; O2SAT 98
[2025-07-02] MEDS: LORAZEPAM 2MG/ML UD SYRINGE IV SCH (21:00)
[2025-07-02] MEDS ORDERED: MIDAZOLAM 100MG/100ML PMX 100 ML IV PRN (21:00)
[2025-07-02 21:03] LABS: CREATININE 1.2 mg/dL (0.6-1.0)
[2025-07-02 21:04] LABS: UREA NITROGEN BLOOD 14 mg/dL (9-23)
[2025-07-02 21:05] LABS: ASPARTATE AMINOTRANSFERASE 30 IU/L (<34)
[2025-07-02 21:06] LABS: BILIRUBIN DIRECT 0.3 mg/dL (<=3.0); BILIRUBIN TOTAL 0.9 mg/dL (0.1-1.0); PROTEIN TOTAL 9.0 g/dL (6.0-8.3)
[2025-07-02 21:10] LABS: BAND% 2.0 % (1.0-6.0); LYMPHOCYTES % MANUAL 2.0 % (20.0-60.0); MONOCYTES % MANUAL 3.0 % (2.0-8.0); NEUTROPHILS % MANUAL 93.0 % (45.0-75.0); PLATELET ESTIMATE NORMAL
[2025-07-02] MEDS: MIDAZOLAM 100MG/100ML PMX 100 ML IV PRN (21:25)
[2025-07-02] MEDS ORDERED: VANCOMYCIN 1000MG/250ML 250 ML IV SCH (21:30)
[2025-07-02] MEDS ORDERED: PIPERACILLIN/TAZO 3.375G/50ML 50 ML IV SCH (22:00)
[2025-07-02] MEDS: VANCOMYCIN 1G PREMIX 200 ML IV SCH (22:03)
[2025-07-02 22:15] VITALS: PULSE 115; RESP 12; O2SAT 98
[2025-07-02] MEDS ORDERED: GUAIFENESIN 200MG/10ML SUGAR FREE UDC PO PRN (23:00)
[2025-07-02] MEDS ORDERED: CLONIDINE 0.1MG TABLET PO PRN (23:00)
[2025-07-02] MEDS ORDERED: DOCUSATE SODIUM 100MG CAPSULE PO PRN (23:00)
[2025-07-02] MEDS ORDERED: IPRATROPIUM/ALBUTEROL 0.5-3(2.5)MG/3ML NEB HHN PRN (23:00)
[2025-07-02] MEDS ORDERED: ONDANSETRON HCL 4MG/2ML INJ IV PRN (23:00)
[2025-07-02] MEDS ORDERED: ACETAMINOPHEN 325MG TABLET PO PRN ×2 (23:00)
[2025-07-02] MEDS ORDERED: POTASSIUM CHLORIDE 20MEQ/PACKET NG NR (23:15)
[2025-07-02 23:30] VITALS: BP 123/89; PULSE 129; RESP 22
[2025-07-02 23:45] VITALS: BP 110/85; PULSE 114; RESP 14
[2025-07-03] VITALS (91 sets, daily range): BP systolic 97–148; BP diastolic 73–114; PULSE 78–145; RESP 12–23; TEMP 36.9–37.3076; O2SAT 100
[2025-07-03] MEDS: KCL 20MEQ/100ML PREMIX 100 ML IV NR (00:18)
[2025-07-03] MEDS: DEXT 5%/0.9% NACL 1,000 ML IV SCH ×2 (00:18→15:07)
[2025-07-03] MEDS: PIPERACILLIN/TAZO 3.375G/50ML 50 ML IV SCH (00:18)
[2025-07-03] MEDS ORDERED: INSLIS SUBCUT (00:30)
[2025-07-03 01:16] LABS: BG BASE EXCESS -19.4 mmol/L (-2.0-3.0); BG CARBOXYHEMOGLOBIN 0.3 % (0.5-1.5); BG DEOXYHEMOGLOBIN 7.0 % (0.0-5.0); BG FRACTION INSPIRED OXYGEN 50; BG HCO3 ACT 7.2 mmol/L (21.0-28.0); BG METHEMOGLOBIN 0.3 % (0.5-1.5); BG OXYGEN SATURATION 93.0 % (94.0-98.0); BG OXYHEMOGLOBIN 92.4 % (94.0-98.0); BG PCO2 19.8 mmHg (32.0-45.0); BG PEEP (cmH2O) 5.0 cmH2O; BG PH 7.179 (7.350-7.450); BG PO2 69.3 mmHg (83.0-108.0); BG SAMPLE SITE RIGHT BRACHIAL; BG TIDAL VOLUME(mL) 450.0 mL; BG TOTAL HEMOGLOBIN 3.9 g/dL (12.0-16.0); BG VENT MODE VENT - AC; BG VENT RATE 12.0 set
[2025-07-03] MEDS ORDERED: FENTANYL 2500MCG/250ML PMX 250 ML IV PRN (02:00)
[2025-07-03] MEDS ORDERED: FENTANYL 2500MCG/250ML PMX 250 ML IV ONE (02:00)
[2025-07-03] MEDS: FENTANYL CITRATE 2,500 MCG in SODIUM CHLORIDE 0.9% 200 ML IV PRN (02:58)
[2025-07-03 06:01] LABS: HEMATOCRIT. 41.7 % (36.0-48.0); HEMOGLOBIN. 13.3 g/dL (12.0-16.0); MEAN PLATELET VOLUME 10.5 fl (7.4-10.4); PLATELET 256 x1000/uL (130-400); RED BLOOD CELL COUNT 4.30 mill/uL (4.2-5.4); RED CELL DISTRIBUTION WIDTH 12.4 % (11.6-14.6)
[2025-07-03 06:17] LABS: CREATININE 1.0 mg/dL (0.6-1.0); TRIGLYCERIDE 88 mg/dL (0-150)
[2025-07-03 06:18] LABS: LDL CHOLESTEROL 64 mg/dL (5-100); UREA NITROGEN BLOOD 11 mg/dL (9-23)
[2025-07-03 06:20] LABS: T4 FREE 1.66 ng/dL (0.89-1.76)
[2025-07-03] MEDS ORDERED: DEXTROSE 50% WATER 50ML SYRINGE IV PRN (06:45)
[2025-07-03] MEDS: BLOOD SUGAR DIAGNOSTIC STRIP TEST SCH (07:50)
[2025-07-03 08:53] LABS: BG BASE EXCESS -0.8 mmol/L (-2.0-3.0); BG CARBOXYHEMOGLOBIN 1.3 % (0.5-1.5); BG DEOXYHEMOGLOBIN 0.2 % (0.0-5.0); BG FRACTION INSPIRED OXYGEN 50; BG HCO3 ACT 23.5 mmol/L (21.0-28.0); BG METHEMOGLOBIN 0.2 % (0.5-1.5); BG OXYGEN SATURATION 99.8 % (94.0-98.0); BG OXYHEMOGLOBIN 98.3 % (94.0-98.0); BG PCO2 37.8 mmHg (32.0-45.0); BG PEEP (cmH2O) 5.0 cmH2O; BG PH 7.411 (7.350-7.450); BG PO2 243.7 mmHg (83.0-108.0); BG SAMPLE SITE RIGHT BRACHIAL; BG TIDAL VOLUME(mL) 450.0 mL; BG TOTAL HEMOGLOBIN 14.2 g/dL (12.0-16.0); BG VENT MODE VENT - AC; BG VENT RATE 12.0 set
[2025-07-03] MEDS: LEVETIRACETAM 1500MG PREMIX 100 ML IV SCH (08:53)
[2025-07-03] MEDS ORDERED: VANCOMYCIN 500 MG in DEXT 5% WATER 100 ML IV SCH (09:00)
[2025-07-03] MEDS: SODIUM CHLORIDE 0.9% 1,000 ML IV SCH (10:13)
[2025-07-03] MEDS: VANCOMYCIN 750MG/150ML (BAXTER) IV SCH (10:13)
[2025-07-03 10:45] LABS: BAND% 4.0 % (1.0-6.0); LYMPHOCYTES % MANUAL 3.0 % (20.0-60.0); MONOCYTES % MANUAL 4.0 % (2.0-8.0); MYELOCYTES % 1.0 % (0-0); NEUTROPHILS % MANUAL 88.0 % (45.0-75.0); PLATELET ESTIMATE NORMAL
[2025-07-03] MEDS ORDERED: DEXMEDETOMIDINE 100 ML IV PRN (17:30)
[2025-07-03] MEDS: DEXMEDETOMIDINE 250 ML IV PRN (21:24)
[2025-07-04] VITALS (65 sets, daily range): BP systolic 91–140; BP diastolic 66–106; PULSE 63–131; RESP 7–32; TEMP 36.5–37.3; O2SAT 98–100
[2025-07-04] MEDS: LORAZEPAM 2MG/ML UD SYRINGE IV PRN (06:43)
[2025-07-04 07:15] LABS: CREATININE 0.9 mg/dL (0.6-1.0); PLATELET 279 x1000/uL (130-400); RED BLOOD CELL COUNT 3.56 mill/uL (4.2-5.4); RED CELL DISTRIBUTION WIDTH 12.3 % (11.6-14.6); UREA NITROGEN BLOOD 8 mg/dL (9-23)
[2025-07-04] MEDS: POTASSIUM CHLORIDE 20MEQ/PACKET NG NR (11:17)
[2025-07-04 13:07] LABS: BG BASE EXCESS -2.4 mmol/L (-2.0-3.0); BG CARBOXYHEMOGLOBIN 0.2 % (0.5-1.5); BG DEOXYHEMOGLOBIN 0.5 % (0.0-5.0); BG FRACTION INSPIRED OXYGEN 40; BG HCO3 ACT 21.5 mmol/L (21.0-28.0); BG METHEMOGLOBIN 0.3 % (0.5-1.5); BG OXYGEN SATURATION 99.5 % (94.0-98.0); BG OXYHEMOGLOBIN 99.0 % (94.0-98.0); BG PCO2 33.7 mmHg (32.0-45.0); BG PEEP (cmH2O) 5.0 cmH2O; BG PH 7.422 (7.350-7.450); BG PO2 225.4 mmHg (83.0-108.0); BG SAMPLE SITE RIGHT RADIAL; BG TOTAL HEMOGLOBIN 10.8 g/dL (12.0-16.0); BG VENT MODE VENT - CPAP
[2025-07-04] MEDS: VANCOMYCIN 1GM/200ML PMX (BAXTER) IV SCH (17:49)
[2025-07-04 20:48] LABS: CREATININE 0.7 mg/dL (0.6-1.0); UREA NITROGEN BLOOD < 5 mg/dL (9-23)
[2025-07-04 20:50] LABS: ASPARTATE AMINOTRANSFERASE 66 IU/L (<34)
[2025-07-04 20:51] LABS: BILIRUBIN TOTAL 1.4 mg/dL (0.1-1.0); PROTEIN TOTAL 6.8 g/dL (6.0-8.3)
[2025-07-04] MEDS: LACOSAMIDE 100MG/10ML ORAL SOLN GT SCH (21:43)
[2025-07-04 21:54] LABS: HCG SCREEN NEGATIVE
[2025-07-05] VITALS (15 sets, daily range): BP systolic 105–143; BP diastolic 77–110; PULSE 78–97; RESP 16–34; TEMP 36.1–37; O2SAT 96–100
[2025-07-05 06:22] LABS: BASOPHILS % 0.2 % (0.0-2.0); EOSINOPHILS % 0.3 % (0.0-5.0); HEMATOCRIT. 30.1 % (36.0-48.0); HEMOGLOBIN. 9.9 g/dL (12.0-16.0); LYMPHOCYTES % 14.5 % (20.0-50.0); MEAN PLATELET VOLUME 9.9 fl (7.4-10.4); MONOCYTES % 9.9 % (2.0-8.0); NEUTROPHILS % 75.1 % (40.0-76.0); PLATELET 287 x1000/uL (130-400); RED BLOOD CELL COUNT 3.15 mill/uL (4.2-5.4); RED CELL DISTRIBUTION WIDTH 12.1 % (11.6-14.6)
[2025-07-05] MEDS: MAGNESIUM/ALUMINUM HYDROXIDE/SIMETHICONE 30ML UDC PO PRN (06:27)
[2025-07-05 06:42] LABS: UREA NITROGEN BLOOD < 5 mg/dL (9-23)
[2025-07-05 06:43] LABS: CREATININE 0.8 mg/dL (0.6-1.0)
[2025-07-05 06:45] LABS: ASPARTATE AMINOTRANSFERASE 55 IU/L (<34); BILIRUBIN DIRECT 0.5 mg/dL (<=3.0); PHOSPHORUS 2.2 mg/dL (2.5-4.9)
[2025-07-05 06:46] LABS: BILIRUBIN TOTAL 1.5 mg/dL (0.1-1.0); PROTEIN TOTAL 6.2 g/dL (6.0-8.3)
[2025-07-05] MEDS: MAGNESIUM 1 G PREMIX 100 ML IV NR (08:30)
[2025-07-05] MEDS: DEXT 5%/0.45% NACL 1000ML 1,000 ML IV SCH (08:30)
[2025-07-05] MEDS: KCL 20MEQ/100ML PREMIX 100 ML IV NR (08:30)
[2025-07-05 08:48] LABS: BG BASE EXCESS -1.0 mmol/L (-2.0-3.0); BG CARBOXYHEMOGLOBIN 0.8 % (0.5-1.5); BG DEOXYHEMOGLOBIN 2.1 % (0.0-5.0); BG FRACTION INSPIRED OXYGEN 21; BG HCO3 ACT 23.1 mmol/L (21.0-28.0); BG METHEMOGLOBIN 0.3 % (0.5-1.5); BG OXYGEN SATURATION 97.9 % (94.0-98.0); BG OXYHEMOGLOBIN 96.8 % (94.0-98.0); BG PCO2 36.4 mmHg (32.0-45.0); BG PH 7.421 (7.350-7.450); BG PO2 101.2 mmHg (83.0-108.0); BG SAMPLE SITE RIGHT RADIAL; BG TOTAL HEMOGLOBIN 11.3 g/dL (12.0-16.0); BG VENT MODE ROOM AIR
[2025-07-05] MEDS: POTASSIUM PHOSPHATE 30 MMOL in DEXT 5% WATER 490 ML IV SCH (10:54)
[2025-07-05] MEDS ORDERED: DEXTROSE 50% WATER 50ML SYRINGE IV PRN (15:45)
[2025-07-05] MEDS: INSULIN LISPRO 100 UNITS/ML SUBCUT SCH (17:50)
[2025-07-05] MEDS: VANCOMYCIN 1GM/200ML PMX (BAXTER) IV SCH (22:04)
[2025-07-06] VITALS: BP 127/88; PULSE 101; RESP 19; TEMP 36.7; O2SAT 99
[2025-07-06 04:00] VITALS: BP 125/80; PULSE 96; RESP 18; TEMP 36.3; O2SAT 98
[2025-07-06 07:09] LABS: BASOPHILS % 0.5 % (0.0-2.0); EOSINOPHILS % 0.6 % (0.0-5.0); LYMPHOCYTES % 16.6 % (20.0-50.0); MEAN PLATELET VOLUME 10.7 fl (7.4-10.4); MONOCYTES % 5.8 % (2.0-8.0); NEUTROPHILS % 76.5 % (40.0-76.0); PLATELET 341 x1000/uL (130-400); RED BLOOD CELL COUNT 3.76 mill/uL (4.2-5.4); RED CELL DISTRIBUTION WIDTH 12.2 % (11.6-14.6)
[2025-07-06 07:11] LABS: HEMATOCRIT. 35.4 % (36.0-48.0); HEMOGLOBIN. 11.5 g/dL (12.0-16.0)
[2025-07-06 07:36] LABS: CREATININE 0.9 mg/dL (0.6-1.0); UREA NITROGEN BLOOD < 5 mg/dL (9-23)
[2025-07-06 07:48] LABS: PHOSPHORUS 3.4 mg/dL (2.5-4.9)
[2025-07-06 08:00] VITALS: BP 140/90; PULSE 96; RESP 15; TEMP 36.2; O2SAT 96
[2025-07-06 12:00] VITALS: BP_SYST 144; BP_DIAS 90; BP_DIAS 96; PULSE 87; RESP 15; RESP 17; TEMP 36.2; TEMP 36.5; O2SAT 96
[2025-07-06 16:00] VITALS: BP 135/91; PULSE 112; RESP 15; TEMP 36.2; O2SAT 97
[2025-07-06] MEDS ORDERED: LACO100T2 MT (16:58)
[2025-07-06] MEDS ORDERED: LEVE1000 PO (17:00)
[2025-07-06 20:00] VITALS: BP 135/95; PULSE 97; RESP 17; TEMP 36.8; O2SAT 96
[2025-07-06] MEDS: VANCOMYCIN 750MG PREMIX 150 ML IV SCH (22:08)
[2025-07-07] VITALS (7 sets, daily range): BP systolic 106–154; BP diastolic 58–105; PULSE 84–122; RESP 17–19; TEMP 36.2–36.8; O2SAT 97–99
[2025-07-07 08:30] LABS: UREA NITROGEN BLOOD < 5 mg/dL (9-23)
[2025-07-07 08:37] LABS: CREATININE 1.5 mg/dL (0.6-1.0)
[2025-07-07] MEDS: SODIUM CHLORIDE 0.45% 1,000 ML IV ONE (12:15)
[2025-07-07] MEDS: INSULIN REGULAR (HUMULIN R) 1000UNITS/10ML VIAL IV NR (15:22)
[2025-07-07] MEDS ORDERED: INSU100I28 SQ (15:27)
[2025-07-07] MEDS: INSULIN LISPRO 100 UNITS/ML SUBCUT NR (15:56)
[2025-07-08] MEDS ORDERED: VANCOMYCIN 750MG PREMIX 150 ML IV SCH (09:00)
== END 2025-07-07 20:20 | disposition home health service (06) | DRG 871 ==
LOC: ER 20:11 → CVICU 21:30 → EDBEDREQTM 21:36 → EDBEDREQ 21:36 → EDBEDREQSVC 21:36 → ENRESERV 21:54 → 6WST 07-05 14:33
PROVIDERS: ADMIT Internal Medicine; ATTEND Internal Medicine
PROC: 5A1945Z Respiratory Ventilation, 24-96 Consecutive Hours (ICD-10-PCS; principal; 2025-07-02)
PROC: 0BH17EZ Insertion of Endotracheal Airway into Trachea, Via Natural or Artificial Opening (ICD-10-PCS; 2025-07-02)
PROC: 4A00X4Z Measurement of Central Nervous Electrical Activity, External Approach (ICD-10-PCS; 2025-07-04)
DX: A41.9 Sepsis, unspecified organism (principal); G92.8 Other toxic encephalopathy; J96.01 Acute respiratory failure with hypoxia; J18.9 Pneumonia, unspecified organism; G40.911 Epilepsy, unspecified, intractable, with status epilepticus; E87.20 Acidosis, unspecified; M62.82 Rhabdomyolysis; N17.9 Acute kidney failure, unspecified; E87.6 Hypokalemia; E11.65 Type 2 diabetes mellitus with hyperglycemia; R29.818 Other symptoms and signs involving the nervous system; Z96.41 Presence of insulin pump (external) (internal); Z22.322 Carrier or suspected carrier of Methicillin resistant Staphylococcus aureus; Z79.4 Long term (current) use of insulin; Z79.899 Other long term (current) drug therapy; I10 Essential (primary) hypertension; E83.42 Hypomagnesemia; E83.39 Other disorders of phosphorus metabolism
CPT/HCPCS: 31500; 31720; 36415; 36600; 71045; 80048; 80053; 80061; 80076; 80202; 80320; 80339; 82375; 82542; 82550; 82805; 82962; 83036; 83605; 83735; 84100; 84132; 84145; 84439; 84443; 84703; 85025; 85027; 87070; 87077; 87186; 92610; 93005; 93970; 94002; 94003; 94070; 94640; 94664; 94760; 95816; 98960; 99291; A4606; J1815; J1953; J2060; J2250; J2543; J3010; J3373; J3475; J3480; J3490; J7030; J7042; J7050; J7060; G0480